=== PATIENT | male | born 1975 | race Caucasian/White ===

== ENCOUNTER 2024-05-09 13:17 | Inpatient (IN) | payer OTHER, SELFPAY ==
[2024-05-09] VITALS (16 sets, daily range): BP systolic 118–127; BP diastolic 69–82; PULSE 93–104; RESP 19–27; TEMP 36.7–36.8; O2SAT 90–98; BMI 39.7
--- NOTE | ~2024-05-09 | XR_ITS ---
EXAM: XR abdomen/kub 1V DATE: 05/12/2024 18:58 HISTORY: constipation . COMPARISON: None available. FINDINGS: Clear lung bases. Mild gastric distention. Dilated loop of large bowel over the central ab domen. Paucity of small bowel gas. No bowel gas over the rectum. Large volume of fecal material over the right colon, which is shifted towards the right and partially excluded from the [id number]. No organomegaly. No abnormal abdominal calcification. Degenerative changes in the spine and hips. IMPRESSION: Mild gastric distention. Paucity of small bowel gas limits evaluation for small bowel abn ormality. Incompletely visualized right colon, with a large volume of fecal material. Dilated large b owel loop over the central abdomen, probably representing air-filled sigmoid, with no rectal gas or f ecal material. Colonic obstruction/ileus not excluded. Reviewed, dictated and finalized at [facility]. IMPRESSION: Mild gastric distention. Paucity of small bowel gas limits evaluati on for small bowel abnormality. Incompletely visualized right colon, with a lar ge volume of fecal material. Dilated large bowel loop over the central abdomen, probably representing air-filled sigmoid, with no rectal gas or fecal material . Colonic obstruction/ileus not excluded.
--- NOTE | ~2024-05-09 | US_ITS ---
EXAMINATION: US venous doppler [facility] DATE: 05/10/2024 09:11 INDICATION: Lower limb edema. TECHNIQUE: Grayscale ultrasound images without and with compression and Doppler ultrasound images of the bilateral lower extremity veins were obtained. COMPARISON: None. FINDINGS: The visualized portions of right common femoral vein, profunda (deep) femoral vein, femoral vein, pop liteal vein, peroneal veins, posterior tibial veins, and greater saphenous vein outflow are patent. The visualized portions of left common femoral vein, profunda femoral vein, femoral vein, popliteal v ein, peroneal veins, posterior tibial veins, and greater saphenous vein outflow are patent. IMPRESSION: 1. No deep venous thrombosis. Reviewed, dictated and finalized at location B.
--- NOTE | ~2024-05-09 | XR_ITS ---
EXAMINATION: XR chest 1V portable DATE: 05/09/2024 13:57 INDICATION: Difficulty breathing. TECHNIQUE: A single frontal view of the chest was obtained. COMPARISON: Chest 2 views 06/21/2007, chest CT 06/21/2007 FINDINGS: There is no pneumonia, pleural effusion, or pneumothorax. The heart size is normal. IMPRESSION: 1. No acute cardiopulmonary disease. Reviewed, dictated and finalized at location B.
--- NOTE | 2024-05-09 13:28 | ECG_ITS ---
Test Date: 2024-05-09 13:26:32 Measurements Intervals Irene Rate: 100 P: 56 SD: 199 QRS: 67 QRSD: 114 T: 46 QT: 356 QTc: 461 Interpretive Statements SINUS TACHYCARDIA MODERATE INTRAVENTRICULAR CONDUCTION DELAY [110+ ms QRS DURATION] NONSPECIFIC T-WAVE ABNORMALITY No previous ECG available for comparison Electronically Signed On 05-09-2024 13:53:39 CDT by Geovany Guerrero M.D.
--- NOTE | 2024-05-09 13:33 | ED.SOB ---
HPI - SOB/Dyspnea General Chief Complaint: Shortness of Breath/Dyspnea Stated Complaint: SOB Time Seen by Provider: 05/09/24 13:19 History of Present Illness HPI Narrative: 48-year-old male with a past medical history including asthma and COPD, diabetes, schizophrenia. He wear CPAP at night and still smokes. Patient comes into the emergency department via EMS for concerns of hypoxia and difficulty breathing for last 2 days. On arrival to the house patient was 79% on room air, received DuoNeb with improvement to the mid 90s. Patient presently is saturating 90% on 6 L nasal cannula, endorses some chest tightness and difficulty breathing. States it feels like his COPD. Denies any chest pain, abdominal pain, back pain, fever, chills. No sick contacts the household. No records of the patient here in the EMR. Patient is awake alert and answering all questions appropriately. Related Data Home Medications ?Medication ?Instructions ?Recorded ?Confirmed ?Last Taken ?Type albuterol sulfate 90 mcg/actuation 1 puff inhalation Q4H PRN 05/09/24 05/09/24 05/07/24 History aerosol inhaler shortness of breath or wheezing amlodipine 5 mg tablet 5 mg PO DAILY 05/09/24 05/09/24 05/08/24 History aripiprazole 10 mg tablet 5 mg PO DAILY 05/09/24 05/09/24 05/08/24 History aspirin 81 mg capsule 81 mg PO DAILY 05/09/24 05/09/24 05/08/24 History benztropine 1 mg tablet 1 mg PO HS 05/09/24 05/09/24 05/08/24 History desipramine 150 mg tablet 150 mg PO HS 05/09/24 05/09/24 05/08/24 History diclofenac sodium 1 % topical gel See Rx Instructions topical 05/09/24 05/09/24 05/08/24 History .COMPLEX fluticasone 250 mcg-salmeterol 50 1 inh inhalation Q12H 05/09/24 05/09/24 05/08/24 History mcg/dose blistr powdr for inhalation folic acid 1 mg tablet 1 mg PO DAILY 05/09/24 05/09/24 05/08/24 History gabapentin 300 mg capsule 300 mg PO Q12H 05/09/24 05/09/24 05/08/24 History lithium carbonate 300 mg capsule 300 mg PO BID 05/09/24 05/09/24 05/08/24 History losartan 50 mg-hydrochlorothiazide 1 tablet PO DAILY 05/09/24 05/09/24 05/08/24 History 12.5 mg tablet metformin 1,000 mg tablet 1,000 mg PO BID 05/09/24 05/09/24 05/08/24 History omega 6-hte-vvb-fish oil 1,000 mg 1 cap PO HS 05/09/24 05/09/24 05/08/24 History (120 mg-180 mg) capsule (Fish Oil) oxybutynin chloride 15 mg 15 mg PO DAILY 05/09/24 05/09/24 05/08/24 History tablet,extended release 24 hr sennosides 8.6 mg-docusate sodium 2 tab-cap PO HS 05/09/24 05/09/24 05/04/24 History 50 mg tablet (Senna-Time S) simvastatin 40 mg tablet 40 mg PO QPM 05/09/24 05/09/24 05/08/24 History sitagliptin phosphate 50 mg tablet 50 mg PO DAILY 05/09/24 05/09/24 05/08/24 History (Januvia) venlafaxine 150 mg 300 mg PO DAILY 05/09/24 05/09/24 05/08/24 History capsule,extended release 24 hr Allergies Allergy/AdvReac Type Severity Reaction Status Date / Time No Known Allergies Allergy Verified 05/09/24 18:39 Review of Systems Review of Systems: As reviewed above in [facility] Social History Social History Smoking packs per day: 2 Smoking cigarettes per day: 40.0 Smoking status: Current every day smoker Tobacco type: cigarettes Additional smoking assessment comments: per patient. Smokes one to two packs per day. Alcohol intake: never Substance use: never Spiritual care concerns: No Exam Narrative: GENERAL: Uncomfortable appearing, not any acute distress, able to answer questions and awake alert oriented. Saturating 90% on 6 L nasal cannula HEAD: [Normocephalic, atraumatic.] EYES: [PERRLA and EOMI.] ENT: Nares clear, no rhinorrhea or epistaxis. Mucous membranes moist. NECK: Supple. CHEST: Diffuse wheezing in all lung chirinos, prolonged expiratory phase, no tachypnea or significant labored breathing. He is able to answer questions appropriately and as mild conversational dyspnea HEART: [Regular rate and rhythm]. No murmur heard. [Normal peripheral pulses.] ABDOMEN: Protuberant abdomen with an umbilical hernia that is easily reducible. Soft and nondistended, [nontender], [No rigidity or guarding] EXTREMITIES: Normal range of motion. [No edema.] SKIN: Warm, dry, no rash. NEURO: [No focal deficits]. Alert and oriented [x3.] PSYCH: [Normal mood and affect.] Course Vital Signs Vital signs: Vital Signs Temperature 36.7 C 05/09/24 13:22 Pulse Rate 101 H 05/09/24 13:22 Respiratory Rate 19 05/09/24 13:22 Blood Pressure 126/78 05/09/24 13:22 Pulse Oximetry 90 05/09/24 13:22 Oxygen Delivery Nasal Cannula 05/09/24 13:22 Oxygen Flow Rate 6 05/09/24 13:22 Temperature 36.8 C 05/09/24 19:49 Pulse Rate 101 H 05/09/24 20:15 Respiratory Rate 22 H 05/09/24 20:15 Blood Pressure 125/69 05/09/24 19:49 Pulse Oximetry 91 05/09/24 20:13 Oxygen Delivery High Flow Nasal Cannula 05/09/24 20:13 Oxygen Flow Rate 6 05/09/24 20:13 MDM - SOB/Dyspnea MDM Narrative Medical decision making narrative: 48-year-old male with history of asthma, COPD, smoking, diabetes and schizophrenia. Presents to the ER for evaluation of respiratory concerns including hypoxia and difficulty breathing for last several days. Patient states it feels like his COPD/asthma. Does endorse still smoking. He was found to be hypoxic at 79% on room air. Does not wear oxygen at the household uses CPAP at night occasionally. Provided DuoNeb in route with improvement to 96% via nasal cannula according to EMS. Currently he is saturating 90% on 6 L nasal can without any tachypnea, mild tachycardia, no blood pressure elevations or fever. He has diffuse wheezing in all lung chirinos. Considerations at this time referred asthma exacerbation, COPD exacerbation, bronchospastic process secondary to viral illness, potential pneumonia. Given his COPD history he was started on antibiotics including Rocephin and azithromycin and treated with continuous nebulization of albuterol and Atrovent, magnesium and steroids were ordered as well a fluid bolus. Cardiac workup was ordered this time including CBC, CMP, chest x-ray, EKG and troponin. Given patient's hypoxia and respiratory efforts he will require continuous re-evaluation admission to the hospital after treatments. Currently he is saturating appropriately on nasal cannula given his COPD history and we will hold off on invasive or noninvasive positive-pressure in till further diagnostics. VBG obtained and shows mildly elevated CO2 of 53 but normal pH and bicarb secondary to chronic retention. Workup reveals no leukocytosis, hemoglobin 12.6 with no baseline. Normal platelet count. Normal electrolytes, creatinine 1.59 with no baseline. Normal LFTs. Normal BUN. Negative troponin. Urine without any infection. Negative viral swabs. Chest x-ray shows no acute cardiopulmonary disease. EKG shows sinus tachycardia, no signs of ST segment elevations, depressions or inversions. Patient re-evaluated and doing much better after DuoNeb treatments, no longer has wheezy. Will require admission to the hospital for continued evaluation treatment as he is still requiring oxygen therapy and would benefit from scheduled DuoNebs and steroids. Patient is comfortable with this plan I spoke to the hospitalist currently being covered by the midlevel provider who accepted him to a telemetry monitored bed. Medical Records Attestation: I reviewed the patient's medical records. Lab Data Attestation: I reviewed the patient's lab results. 05/09/24 13:43 05/09/24 13:43 Labs: Lab Results 05/09/24 05/09/24 Range/Units 13:43 14:46 WBC 7.3 (4.5-10.0) K/mm3 RBC 4.16 L (4.6-6.20) M/mm3 Hgb 12.6 L (14.0-18.0) g/dL Hct 37.6 L (42.0-52.0) % MCV 90.4 (80-100) fl MCH 30.3 (26-34) pg MCHC 33.5 (32-36) g/dl RDW 13.0 (11.5-14.5) % Plt Count 173 (150-375) k/mm3 MPV 10.5 H (7.4-10.4) fl Immature Gran % (Auto) 0.3 (0-0.5) % Neut % (Auto) 74.4 H (45.5-73.1) % Lymph % (Auto) 12.4 L (18.3-44.2) % [place] % (Auto) 9.5 H (2.6-8.5) % Eos % (Auto) 3.1 (0-4.4) % Baso % (Auto) 0.3 (0.2-1.2) % Lymph # (Auto) 0.91 (0.9-3.2) K/mm3 [place] # (Auto) 0.7 H (0.1-0.6) K/mm3 Eos # (Auto) 0.2 (0-0.3) K/mm3 Baso # (Auto) 0.0 (0.0-0.1) K/mm3 Abs Immat Gran (auto) 0.02 (0.00-0.031) K/mm3 Absolute Neuts (auto) 5.5 (1.3-6.7) K/mm3 Absolute Nucleated RBC 0.000 (0.0-0.012) K/mm3 Nucleated RBC % 0.0 (0.0-0.2) % Sodium 140 (137-145) mmol/L Potassium 4.4 (3.4-5.0) mmol/L Chloride 103 (98-107) mmol/L Carbon Dioxide 29 (22-30) mmol/L Anion Gap 8 (4-12) mmol/L BUN 13 (9-20) mg/dL Creatinine 1.59 H (0.7-1.3) mg/dL Estim Creat Clear Calc Not Reportable Estimated GFR 46 L (59 - ) Glucose 104 (65-110) mg/dL Calcium 10.1 (8.4-10.2) mg/dL Total Bilirubin 0.6 (0.2-1.3) mg/dL AST 21 (17-59) U/L ALT 25 (6-50) U/L Alkaline Phosphatase 85 (38-126) U/L Troponin I < 0.012 (0.000-0.034) ng/mL Total Protein 8.0 (6.3-8.2) g/dL Albumin 4.3 (3.5-5.1) g/dL Urine Color Yellow (Yellow) Urine Appearance Clear (Clear) Urine pH 6.0 (5.0-9.0) Ur Specific [place] 1.007 (1.001-1.035) Urine Protein Negative (Negative) mg/dL Urine Glucose (UA) Negative (Negative) mg/dL Urine Ketones Negative (Negative) mg/dL Ur Blood (Man) Negative (Negative) Urine Nitrate Negative (Negative) Urine Bilirubin Negative (Negative) Urine Urobilinogen 0.2 (<2.0) mg/dL Leukocyte Esterase Rfl Negative (Negative) CORBY/UL Influenza A (RT-PCR) Negative (Negative) Influenza B (RT-PCR) Negative (Negative) RSV (RT-PCR) Negative (Negative) SARS-CoV-2 RNA (RT-PCR) Negative (Negative) ABG Data ABG results: 05/09/24 13:30 VBG pH 7.343 VBG pCO2 53.0 H VBG pO2 37.9 VBG HCO3 28.1 O2 Delivery Device Nasal cannula O2 Liters/Min 6.0 FiO2 44 Attestation: I personally reviewed and interpreted this ABG as follows: Interpretation: Chronic hypercapnic retention with normal pH indicative of adequate compensation from the kidneys. No acidosis. Imaging Data Attestation: I personally reviewed and interpreted this imaging study as follows: My impression: Impressions Chest X-Ray 05/09/24 14:01 IMPRESSION: 1. No acute cardiopulmonary disease. ECG Data EKG #1: Attestation: I personally reviewed and interpreted this ECG as follows: ECG completion date: 05/09/24 ECG completion time: 13:26 Prior ECG tracings: not available for review Interpretation: No ST segment elevations, depressions or inversions. Sinus tachycardia, no previous EKG for comparison. QTC 461, QRS 114, rate of 100. MT interval 199. Overall sinus tachycardia. Critical Care Time Critical Care Time Critical Care Time: Yes Total Critical Care Time: 35 Discharge Plan Discharge Clinical Impression: Acute exacerbation of COPD with asthma, Acute hypoxic on chronic hypercapnic respiratory failure Patient Disposition: Still a Patient Condition: Stable
[2024-05-09 13:34] LABS: Device NASAL CANNULA; Fractional Inspired Oxygen 44 %; HCO3 VBG 28.1 mEq/l (24.0-30.0); PO2 VBG 37.9 mmHg (35.0-45.0); pH VBG 7.343 (7.300-7.400)
[2024-05-09] MEDS: IPRATROPIUM BR 0.02% INH SOLN 0.5 MG/2.5 ML VIAL 1 MG INHALATION (13:41)
[2024-05-09] MEDS: ALBUTEROL SULFATE NEB 2.5 MG/3 ML INH 10 MG INHALATION (13:41)
[2024-05-09] MEDS: methylPREDNISolone SOD SUCC 40 MG VIAL IV PUSH (13:43)
--- NOTE | 2024-05-09 13:51 | PC.NURSE ---
Pt. arrived with thick layer of dirt on the bottom of his feet and in between his toes. With the pt. permission, feet cleaned with soap and water by this RN. Feet dried, non-slip socks applied and a warm blanket given. Pt. verbalized appreciation.
[2024-05-09 13:56] LABS: Basophils Percent Auto 0.3 % (0.2-1.2); Eosinophils Absolute Auto 0.2 K/mm3 (0-0.3); Eosinophils Percent Auto 3.1 % (0-4.4); Hematocrit 37.6 % (42.0-52.0); Hemoglobin 12.6 g/dL (14.0-18.0); Immature Granulocyte Absolute 0.02 K/mm3 (0.00-0.031); Immature Granulocyte Percent A 0.3 % (0-0.5); Lymphocytes Absolute Auto 0.91 K/mm3 (0.9-3.2); Lymphocytes Percent Auto 12.4 % (18.3-44.2); Mean Corpuscular HGB Conc 33.5 g/dl (32-36); Mean Corpuscular Hemoglobin 30.3 pg (26-34); Mean Corpuscular Volume 90.4 fl (80-100); Mean Platelet Volume 10.5 fl (7.4-10.4); Monocytes Absolute Auto 0.7 K/mm3 (0.1-0.6); Monocytes Percent Auto 9.5 % (2.6-8.5); Neutrophils Absolute Auto 5.5 K/mm3 (1.3-6.7); Neutrophils Percent Auto 74.4 % (45.5-73.1); Platelet Count Result 173 k/mm3 (150-375); Red Blood Count 4.16 M/mm3 (4.6-6.20); White Blood Count 7.3 K/mm3 (4.5-10.0)
[2024-05-09] MEDS: MAGNESIUM SULF 2 GM/WATER 50ML 2 GM/50 ML BAG IVPB (14:03)
--- NOTE | 2024-05-09 14:09 | PC.NURSE ---
pr EDP Dr. Mueller, pt is receiving abx for COPD and blood cultures were not needed prior to administration
[2024-05-09 14:10] LABS: Alanine Aminotransferase 25 U/L (6-50); Albumin Level 4.3 g/dL (3.5-5.1); Alkaline Phosphatase 85 U/L (38-126); Anion Gap 8 mmol/L (4-12); Aspartate Amino Transferase 21 U/L (17-59); Bilirubin,Total 0.6 mg/dL (0.2-1.3); Blood Urea Nitrogen 13 mg/dL (9-20); Calcium 10.1 mg/dL (8.4-10.2); Carbon Dioxide 29 mmol/L (22-30); Chloride 103 mmol/L (98-107); Estimated Glomerular Filt Rate 46; Glucose 104 mg/dL (65-110); Potassium 4.4 mmol/L (3.4-5.0); Sodium 140 mmol/L (137-145)
--- OUTSIDE RECORDS SUMMARY | 2024-05-09 14:22 | XMS_ITS | CONTINUITY OF CARE DOCUMENT ---
Author Name pazruby олег Address Unknown Organization [facility] Address [address] [place] [address] Phone [phone] Care Team Providers Care Auto Roller Name Role Phone Rell SWEENEY, Alejandro Ramirez Unavailable ANDRE SIMMONS MD Unavailable [phone] ANDRE SIMMONS MD Unavailable [phone] PROBLEMS Condition Status Date Provider Notes CAD-11/10 NUC EF 42 active ? Alejandro Zacarias MD CHEST PAIN-08/10 ECHO EF 50 active Alejandro Zacarias MD TOBACCO ABUSE active ? Alejandro Zacarias MD BIPOLAR AFFECTIVE DISORDER active ? Alejandro Zacarias MD HYPERCHOLESTEROLEMIA-10/09 ECHO EF 55 active ? Danyel Karimi RN OBESITY active ? Alejandro Zacarias MD EDEMA-12/09 DONALDO DOP NEG active ? Danyel Ramirez ENCOUNTERS Date Type Provider Location Encounter Diag nosis - In-person encounter Office Visit Alejandro Zacarias MD [place] [facility] - In-person encounter Office Visit Alejandro Zacarias MD [place] [facility] CAD-11/10 NUC EF 42 - In-person encounter Office Visit Alejandro Zacarias MD [facility] CHEST PAIN-08/10 ECHO EF 50 - In-person encounter Office Visit Alejandro Zacarias MD [facility] - In-person encounter Office Visit Alejandro Zacarias MD [place] [facility] EDEMA-12/09 DONALDO DOP NEGOBESITYHYPERCHOLESTE ROLEMIA-10/09 ECHO EF 55BIPOLAR AFFECTIVE DISORDERTOBACCO ABUSE VITAL SIGNS Date Observation Value Provider Body Mass Index (Ratio) 43.58 kg/m2 Shyannea ivan [facility] blood pressure, diastolic 85 mm[Hg] An mary ann Martinez blood pressure, systolic 141 mm[Hg] Ane atris [facility] pulse rate 100 /min Aneatris [facility] oxygen saturation, oximetry 96 % Aneatris [facility] respiratory rate E&M 18 /min Aneatri s [facility] weight E&M 290 [lb_av] Shyanneguzman [facility] blood pressure, diastolic 70 mm[Hg] Doc ramirez Karimi RN blood pressure, systolic 110 mm[Hg] Danyel Eaglejoe IBANEZ pulse rate 105 /min Danyel Eaglejoe IBANEZ oxygen saturation, oximetry 96 % Danyel Eaglejoe IBANEZ respiratory rate E&M 15 /min Danyel Lisa joe RN Body Mass Index (Ratio) 43.59 kg/m2 Danyel Eagles RN weight E&M 289 [lb_av] Danyel Eagles RN Body Mass Index (Ratio) 42.23 kg/m2 Olegario Alarcon blood pressure, diastolic 76 mm[Hg] Buck blood pressure, systolic 117 mm[Hg] Jon Alarcon pulse rate 103 /min Yanni Alarcon oxygen saturation, oximetry 97 % Yanni Alarcon respiratory rate E&M 16 /min Yanni Alarcon weight E&M 280 [lb_av] Yanni Alarcon Body Mass Index (Ratio) 43.21 kg/m2 Olegario Alarcon blood pressure, diastolic 72 mm[Hg] Buck blood pressure, systolic 112 mm[Hg] Jon Alarcon pulse rate 100 /min Yanni Alarcon oxygen saturation, oximetry 96 % Yanni Alarcon respiratory rate E&M 16 /min Yanni Alarcon weight E&M 286.50 [lb_av] Yanni Kumari an blood pressure, diastolic, left arm 70 mm [Hg] Danyel Karimi MARCELLE blood pressure, systolic, left arm 120 mm [Hg] Danyel Karimi MARCELLE blood pressure, diastolic, right arm 85 m m[Hg] Danyel Karimi MARCELLE blood pressure, systolic, right arm 124 m m[Hg] Danyel Eaglejoe IBANEZ blood pressure, diastolic 85 mm[Hg] Ja harpreet Eaglejoe IBANEZ blood pressure, systolic 124 mm[Hg] Danyel Eaglejoe IBANEZ pulse rate 88 /min Danyel Eaglejoe IBANEZ oxygen saturation, oximetry 94 % Danyel Eaglejoe IBANEZ respiratory rate E&M 20 /min Danyel Gonzalez charly IBANEZ Body Mass Index (Ratio) 44.70 kg/m2 Danyel Eaglejoe IBANEZ weight E&M 296.4 [lb_av] Danyel Eaglejoe IBANEZ height E&M 68.4 [in_i] Danyel Karimi RN ALLERGIES No Known Drug Allergies HISTORY OF MEDICATION USE Medication Status Instructions Dates Provider Indications Com ments DESIPRAMINE HCL TABS active daily Danyel Trev IBANEZ VENLAFAXINE HCL ER 150 MG ORAL CAPSULE EXTENDED RELEASE 24 HOUR active 1 capsules by mouth in the morning 1 Alejandro Zacarias MD NORTRIPTYLINE HCL 50 MG ORAL CAPSULE active 3 capsules by mouth in the morning 1 Alejandro Zacarias MD COMBIVENT 18-103 MCG/ACT INHALATION AEROSOL active inhale 2 puffs 4 times a day as needed Alejandro Zacarias MD HIBICLENS 4 % EXTERNAL LIQUID completed use daily, head to toe for 10 days - 5 Danyel Karimi RN BENADRYL 25 MG ORAL TABLET completed 1-2 tablets by mouth every 8 hours - 5 Danyel Karimi RN POTASSIUM CHLORIDE ER 10 MEQ ORAL TABLET EXTENDED RELEASE active 1 tablet by mouth daily Alejandro Zacarias MD FUROSEMIDE 40 MG ORAL TABLET active 1 tablet by mouth daily Alejandro Zacarias MD VITAMIN E-400 CAPSULE completed 2 capsules by mouth in the morning - 6 Yanni Alarcon INVEGA 6 MG ORAL TABLET EXTENDED RELEASE 24 HOUR completed 1 tablet by mouth every morning - 6 Yanni Alarcon LITHIUM CARBONATE 300 MG ORAL CAPSULE active 4 capsules by mouth every morning Alejandro Zacarias MD INVEGA SUSTENNA 234 MG/1.5ML INTRAMUSCULAR SUSPENSION active inject 234mg IM every month Alejandro Zacarias MD SIMVASTATIN 20 MG ORAL TABLET active 1 tablet by mouth in the morning Alejandro Zacarias MD SOCIAL HISTORY Date Observation Value Provider social history reviewed E&M revi ewed - no changes required Alejandro Zacarias MD social history reviewed E&M reviewed Danyel Karimi RN smoking history, tot al pack/year 27 Daneyl Karimi RN smoking/tobacco cess ation, patient education and counseling yes Alejandro Zacarias MD social history reviewed E&M reviewed Danyel Karimi RN smoking history, tot al pack/year 27 Yanni Alarcon social history reviewed E&M reviewed Danyel Karimi RN drug use no Yanni Alarcon passive cigarette sm ira exposure no Yanni Alarcon smoking/tobacco cess ation, patient education and counseling yes Danyel Karimi RN smoking history, tot al pack/year 27 Yanni Alarcon smoking history, tot al pack/year 27 Yanni Alarcon smoking history, tot al pack/year 27 Danyel Karimi RN smoking history, tot al pack/year 26 Danyel Karimi RN smoking, date started 1985 Jerry eubanks RN smoking/tobacco cess ation, patient education and counseling yes Danyel Karimi RN cigarette use yes Danyel aKrimi RN smoking history, tot al pack/day 2 Danyel Karimi RN smoking status current every day smoker J tiffany Karimi RN social history E&M L evie in an assisted living facility E thnicity: Danyel Karimi RN social history reviewed E&M reviewed Danyel Karimi RN physical exercise, frequency, days per week no [employer] caffeine use, averag e drinks per day yes [employer] alcohol use, average drinks per day none [employer] number of years as a smoker 10 years or m ore [employer] smoking status Smoker [employer] MENTAL STATUS Date Observation Value Provider assessment of judgme nt and insight E&M depressed affect. Alejandro Zacarias MD INSURANCE PROVIDERS Payer name Policy type / Coverage type [employer] [employer] party ID [employer] [place] [employer] [id number] [employer] [place] (MEDICA[place]) Medicaid [id number] TREATMENT PLAN Date Name Performer follow up:on multipl e meds O rders: L IPID PANEL (7600) A ST SGOT (CPT-76903) A LT (SGPT) (392748) B ASIC METABOLIC PANEL W/EGFR (92729) G job+Hb A1c (312223) Alejandro Zacarias MD follow up: O rders: L IPID PANEL (7600) A ST SGOT (CPT-46294) A LT (SGPT) (948408) B ASIC METABOLIC PANEL W/EGFR (10851) G job+Hb A1c (156102) Alejandro Zacarias MD follow up:has not us ed patel machine for past several weeks Alejandro Zacarias MD : H is updated medication list for this problem includes: Simvastatin 20 Mg Tabs (Simvastatin) ..... 1 tablet by mouth in the morning BP today: 110/70 Prior BP: 117/76 (11/03/2012) Alejandro Zacarias MD : B P today: 110/70 Prior BP: 117/76 (11/03/2012) N uclear Stress Findings: 1. Normal myocardial perfusion imaging after vasodilator stress with Regadenoson. 2 . Abnormal left ventricular systolic function with a calculated ejection fraction of (QGS) 42%. 3 . No obvious significant scintigraphic evidence of myocardial ischemia or scar. - GC (11/09/2012) Orders: E KG (CPT-31967) Alejandro Zacarias MD : H is updated medication list for this problem includes: Simvastatin 20 Mg Tabs (Simvastatin) ..... 1 tablet by mouth in the morning BP today: 110/70 Prior BP: 117/76 (11/03/2012) Nuclear Stress Findings: 1. Normal myocardial perfusion imaging after vasodilator stress with Regadenoson. 2 . Abnormal left ventricular systolic function with a calculated ejection fraction of (QGS) 42%. 3 . No obvious significant scintigraphic evidence of myocardial ischemia or scar. - GC (11/09/2012) Alejandro Zacarias MD follow up: O rders: E KG (CPT-28692) Alejandro Zacarias MD follow up: H is updated medication list for this problem includes: Simvastatin 20 Mg Tabs (Simvastatin) ..... 1 tablet by mouth in the morning Alejandro Zacarias MD follow up:ADVISED SM OKING REDUCTION AND EVENTUAL CESSATION Alejandro Zacarias MD Date Name Glu+Hb A1c BASIC METABOLIC PANE L W/EGFR ALT (SGPT) LIPID PANEL STR - Adenosine Complete Echo HISTORY OF PROCEDURES Procedure Date Procedure Name Provider Procedure Notes S tatus AST SGOT Alejandro Zacarias MD compl eted EKG Alejandro Zacarias MD compl eted EKG Alejandro Zacarias MD compl eted EKG Alejandro Zacarias MD compl eted EKG Alejandro Zacarias MD compl eted
--- NOTE | 2024-05-09 14:29 | PC.NURSE ---
With pt. permission, sister Maria G updated by this RN over the phone. All questions answered.
[2024-05-09] MEDS: AZITHROMYCIN 500 MG/NS 250 ML 500 MG/250 ML BAG 250 MG IVPB (14:32)
[2024-05-09 14:35] LABS: Influenza A QL RT-PCR Negative (Negative); Influenza B QL RT-PCR Negative (Negative); RSV RNA, RT-PCR Negative (Negative); SARS-CoV-2 RNA PCR Negative (Negative)
--- NOTE | 2024-05-09 14:43 | PC.NURSE ---
Lab called to add on Troponin. Pt. states it alcaraz when he urinates. Verbal order given by doctor Mueller for a UA.
[2024-05-09 14:52] LABS: Add Urine Microscopic? NO; Appearance Urine Clear (Clear); Bilirubin Urine Negative (Negative); Blood Urine Negative (Negative); Color Urine Yellow (Yellow); Glucose Urine UA Negative (Negative); Ketones Urine Negative (Negative); Leukocyte Esterase Ur Negative LEU/UL (Negative); Nitrate Urine Negative (Negative); Protein Urine Negative (Negative); Specific Grav Ur 1.007 (1.001-1.035); Urobilinogen Urine 0.2 mg/dL (<2.0)
[2024-05-09 15:05] LABS: Troponin I < 0.012 ng/mL (0.000-0.034)
--- OUTSIDE RECORDS SUMMARY | 2024-05-09 15:22 | XMS_ITS | Clinical Summary ---
Author Organization [facility] Snaps Address [address] [place] [address] Care Team Providers Care Hypnotherapist Name Role Phone Jean Carlos Angulo MD Primary Care Provider [phone] Source Comments [facility],non-owned Affiliates and Associated Physician Practices is amultiple site organization consisting of ambulatory clinics and hospital sitesin [place], [place], [place] and [place]. This disclosure is being madepursuant to the Care Everywhere program and may not contain all information available regarding this patient. Last updated 17.[facility] Allergies No known active allergies Medications * Be aware that medications may not be up to date on this document. Alwaysverify current medications with the patient. Medication Sig Dispensed Refills Start Date End Date Status albuterol HFA (Proventil; Ventolin; Proair) 108 (90 Base) MCG/ACT inhaler once daily 07/20/2022 Active amLODIPine (Norvasc) 2.5 MG tablet once daily 06/28/2022 Active ARIPiprazole (Abilify) 10 MG tablet at bedtime 06/28/2022 Active cephalexin (Keflex) 500 MG capsule once daily Active cyproheptadine (Periactin) 4 MG tablet cyproheptadine 4 mg tablet Active desipramine (Norpramin) 100 MG tablet desipramine 100 mg tablet Active diclofenac sodium (Voltaren) 1 % gel as needed 05/25/2022 Active fenofibrate (Tricor) 145 MG tablet once daily 07/05/2022 Active Advair Diskus 250-50 MCG/ACT inhaler once daily 06/10/2022 Active furosemide (Lasix) 40 MG tablet once daily Active HYDROcodone-acetam inophen ([place]) 10-325 MG tablet at bedtime Active lithium carbonate (Eskalith) 300 MG capsule lithium carbonate 300 mg capsule Active hydrocortisone valerate (Westcort) 0.2 % cream hydrocortisone valerate 0.2 % topical cream Active [place]-3 Fatty Acids (fish oil) 1000 MG capsule once daily Active oxyBUTYnin (Ditropan) 5 MG tablet oxybutynin chloride 5 mg tablet Active paliperidone CR 24hr (Invega) 6 MG tablet Invega 6 mg tablet,extended release Active paliperidone palmitate ER (Invega Sustenna) 234 MG/1.5ML injection Invega Sustenna 234 mg/1.5 mL intramuscular syringe Active simvastatin (Zocor) 20 MG tablet simvastatin 20 mg tablet Active Januvia 50 MG tablet 06/23/2022 Active venlafaxine XR 24hr (Effexor XR) 150 MG capsule venlafaxine ER 150 mg capsule,extended release 24 hr Active Multiple Vitamin (MULTIVITAMIN ADULT PO) Take by mouth once daily Active nicotine (QC Nicotine Transdermal System) 21 MG/24HR patchIndications:N icotine Dependence Apply 1 patch to daily X 6 weeks, then apply 14 mg patch daily X 2 weeks (#14 patches), then 7 mg patch daily X 2 weeks (#14 patches) Reasons: Nicotine Addiction 42 patch 07/21/2022 Active Family History Medical History Relation Name Comments Other - Hepatic/Liver Neg Hx Social History Tobacco Use Types Packs/Day Years Used Date Smoking Tobacco: Every Day Cigarettes Smokeless Tobacco: Never Alcohol Use Standard Drinks/Week Comments Not Currently 0 (1 standard drink = 0.6 oz pure alcohol) none since 2013 - 6 pack a day Sex and Gender Information Value Date Recorded Sex Assigned at Not on file Gender Identity Not on file Sexual Orientation Not on file Last Filed Vital Signs Vital Sign Reading Time Taken Comments Blood Pressure - - Pulse - - Temperature - - Respiratory Rate - - Oxygen Saturation - - Inhaled Oxygen Concentration - - Weight 132.5 kg (292 lb) 07/21/2022 10:54 AM CDT Height 180.3 cm (5' 11 ) 07/21/2022 10:54 AM CDT Body Mass Index 40.73 07/21/2022 10:54 AM CDT Plan of Treatment Health Maintenance Due Date Last Done Comments COLOGUARD (AGES 45-75) - COL ON CA SCREENING 1973 COLON MONITORING 1973 COLONOSCOPY - COLON CA SCREENING 1973 CT COLONOGRAPHY - COLON CA SCREENING 1973 Colorectal Cancer Screening 1973 FIT - COLON CA SCREENING 1973 FLEX SIG - COLON CA SCREENING 1973 HIV SCREENING 1988 DTAP/TDAP/TD VACCINES (1 - Tdap) 1992 HEPATITIS B VACCINE (1 of 3 - 19+ 3-dose series) 1992 PNEUMOCOCCAL VACCINE 50+ (1 of 2 - PCV) 1992 PNEUMOCOCCAL VACCINE (1 of 2 - PCV) 1992 ZOSTER VACCINE (1 of 2) 05/30/2023 COVID-19 VACCINE (1 - 2023-2 5 season) 2023 INFLUENZA VACCINE (#1) 2023 DEPRESSION SCREENING 02/29/2024 MEDICARE AWV CALENDAR YEAR 2024 SCREENING FOR DIABETES 07/21/2025 07/21/2022 HEPATITIS C SCREENING Completed 07/21/2022 HIB VACCINE Aged Out No longer eligi ble based on patient's age to complete this topic HPV VACCINE Aged Out No longer eligi ble based on patient's age to complete this topic MENINGOCOCCAL (Group B) VACC INE SHARED DECISION-MAKING Aged Out No longer eligibl e based on patient's age to complete this topic MENINGOCOCCAL GROUPS A/C/Y/W VACCINE Aged Out No longer eligible b ased on patient's age to complete this topic Procedures Procedure Name Priority Date/Time Associated Diagnosis Comments COMPREHENSIVE METABOLIC PANEL Routine 07/21/2022 12:36 PM CDT Other ascites HEPATITIS C ANTIBODY Routine 07/21/2022 12:36 PM CDT Other ascites Encounter for screening for other viral diseases from Last 3 Months or Most Recently Relevant to Health Maintenance Results * (ABNORMAL) COMPREHENSIVE METABOLIC PANEL (07/21/2022 12:36 PM CDT) BUN 8 7 - 26 mg/dL 07/21/2022 1:38 PM CDT [facility] Creatinine 1.43(H) 0.71 - 1.16 mg/dL 07/21/2022 1:38 PM CDT [facility] Sodium 143 136 - 145 mmol/L 07/21/2022 1:38 PM CDT [facility] Potassium 3.9 3.5 - 4.5 mmol/L 07/21/2022 1:38 PM [facility] Chloride 106 98 - 107 mmol/L 07/21/2022 1:38 PM [facility] CO2 30(H) 22 - 29 mmol/L 07/21/2022 1:38 PM [facility] Glucose 94 70 - 115 mg/dL 07/21/2022 1:38 PM [facility] Calcium 9.9 8.4 - 10.2 mg/dL 07/21/2022 1:38 PM [facility] Protein Total 7.4 6.0 - 8.3 g/dL 07/21/2022 1:38 PM [facility] Albumin 3.7 3.4 - 5.0 g/dL 07/21/2022 1:38 PM [facility] Bilirubin Total 0.3 0.2 - 1.2 mg/dL 07/21/2022 1:38 PM [facility] Alkaline Phosphatase 51 40 - 150 U/L 07/21/2022 1:38 PM [facility] ALT 20 5 - 55 U/L 07/21/2022 1:38 PM [facility] AST 16 5 - 34 U/L 07/21/2022 1:38 PM [facility] Anion Gap 11 8 - 18 07/21/2022 1:38 PM [facility] BUN/Creatinine Ratio 6(L) 7 - 23 07/21/2022 1:38 PM [facility] Osmolality Calculated 294 270 - 300 mOsm/kg 07/21/2022 1:38 PM [facility] Albumin/Globulin Ratio 1.0(L) 1.1 - 2.3 07/21/2022 1:38 PM [facility] eGFR by CKD-EPI 60(L) >=90 mL/min/1.7 3 m2 07/21/2022 1:38 PM [facility] Blood BLOOD SPECIMEN / Unknown Lab Venipuncture / Unknown 07/21/2022 12:36 PM CDT 07/21/2022 1:03 PM T Kavon Bronson MD LAB - CHEMISTRY [address] [place] [address], [place] [phone] * HEPATITIS C ANTIBODY (07/21/2022 12:36 PM CDT) Hepatitis C Antibody Non-react idania Non-reac tive 07/21/2022 2:56 PM CDT [facility] Comment:Hepatitis C Antibody screen indicates no serologic evidence of past or current infection with Hepatitis C Virus. Patients with unexplained liver disease who are immunocompromised or suspected of having acute Hepatitis C infection may benefit from Nucleic Acid Test (EDEL) for Hepatitis C Viral RNA to confirm Hepatitis C status. Blood BLOOD SPECIMEN / Unknown Lab Venipuncture / Unknown 07/21/2022 12:36 PM CDT 07/21/2022 1:00 PM CDT Kavon Bronson MD LAB - CHEMISTRY [address] [place] [address], [facility] [phone] from Last 3 Months or Most Recently Relevant to Health Maintenance Care Teams Hypnotherapist Relationship Specialty Start Date End Date Jean Carlos Angulo MD [address] [address] PCP - General Internal Medicine 07/21/22
--- OUTSIDE RECORDS SUMMARY | 2024-05-09 15:22 | XMS_ITS | Clinical Summary ---
Author Organization [facility] Facility Address [address] [place] [address] Care Team Providers Care Property Valuer Name Role Phone Ingrid Garces Primary Care Provider [phone] Medications furosemide (LASIX) 40 MG tablet FUROSEMIDE 40 MG ORAL TABLET 0 Active potassium chloride 10 MEQ CR tablet POTASSIUM CHLORIDE ER 10 MEQ ORAL TABLET EXTENDED RELEASE 0 Active simvastatin (ZOCOR) 20 MG tablet SIMVASTATIN 20 MG ORAL TABLET 0 Active venlafaxine XR (EFFEXOR-XR) 150 MG 24 hr capsule VENLAFAXINE HCL ER 150 MG ORAL CAPSULE EXTENDED RELEASE 24 HOUR 3 Active Active Problems Problem Noted Date Diagnosed Date Atherosclerotic heart diseas e of [place] coronary artery without angina pectoris 01/27/2023 01/27/2023 Bipolar disorder 01/27/2023 01/27/2023 Pure hypercholesterolemia 01/27/20232022 Edema 01/27/2023 01/27/2023 Tobacco dependence syndrome 01/27/202312/31 Social History Tobacco Use Types Packs/Day Years Used Date Smoking Tobacco: Never Assessed Sex and Gender Information Value Date Recorded Sex Assigned at Not on file Legal Sex Male 1:11 PM EDT Gender Identity Not on file Sexual Orientation Not on file Plan of Treatment Health Maintenance Due Date Last Done Comments Pneumococcal Vaccine: Pediat rics (0 to 5 Years) and At-Risk Patients (6 to 64 Years) (1 of 2 - PCV) 05/30/1979 Hepatitis B Vaccine (1 of 3 - 19+ 3-dose series) 05/29 Colorectal Cancer Screening: Annual FOBT 2022 Colorectal Cancer Screening: Colonoscopy 2022 Colorectal Cancer Screening: Sigmoidoscopy 2022 Influenza Vaccine (#1) 2023 Insurance [facility] ([id number]) Care Teams Property Valuer Relationship Specialty Start Date End Date Ingrid Garces [address] [place] [address] PCP - General Family Medicine 11/30/22
--- OUTSIDE RECORDS SUMMARY | 2024-05-09 15:22 | XMS_ITS | CONTINUITY OF CARE DOCUMENT ---
Author Name pazruby олег Address Unknown Organization [facility] Address [address] [place] [address] Phone [phone] Care Team Providers Care Entry Level Automotive Technician Name Role Phone Rell SWEENEY, Alejandro Ramirez Unavailable ANDRE SIMMONS MD Unavailable [phone] ANDRE SIMMONS MD Unavailable [phone] PROBLEMS Condition Status Date Provider Notes EDEMA-12/09 DONALDO DOP NEG active ? Danyel Ramirez OBESITY active ? Alejandro Zacarias MD HYPERCHOLESTEROLEMIA-10/09 ECHO EF 55 active ? Danyel Karimi RN BIPOLAR AFFECTIVE DISORDER active ? Alejandro Zacarias MD TOBACCO ABUSE active ? Alejandro Zacarias MD CHEST PAIN-08/10 ECHO EF 50 active Alejandro Zacarias MD CAD-11/10 NUC EF 42 active ? Alejandro Zacarias MD ENCOUNTERS Date Type Provider Location Encounter Diag nosis - In-person encounter Office Visit Alejandro Zacarias MD [facility] - In-person encounter Office Visit Alejandro Zacarias MD [facility] CAD-11/10 NUC EF 42 - In-person encounter Office Visit Alejandro Zacarias MD [facility] CHEST PAIN-08/10 ECHO EF 50 - In-person encounter Office Visit Alejandro Zacarias MD [facility] - In-person encounter Office Visit Alejandro Zacarias MD [facility] EDEMA-12/09 DONALDO DOP NEGOBESITYHYPERCHOLESTE ROLEMIA-10/09 ECHO EF 55BIPOLAR AFFECTIVE DISORDERTOBACCO ABUSE VITAL SIGNS Date Observation Value Provider Body Mass Index (Ratio) 43.58 kg/m2 Shyannea ivan [facility] blood pressure, diastolic 85 mm[Hg] An mary ann Martinez blood pressure, systolic 141 mm[Hg] Ane atris [facility] pulse rate 100 /min Aneatris [facility] oxygen saturation, oximetry 96 % Aneatris [facility] respiratory rate E&M 18 /min Aneatri s [facility] weight E&M 290 [lb_av] Shyanneguzman [facility] blood pressure, diastolic 70 mm[Hg] Doc ramirez [...] RN smoking history, tot al pack/year 27 Danyel Karimi RN smoking/tobacco cess ation, patient education [...] Danyel Karimi RN cigarette use yes Danyel Karimi RN smoking history, tot al pack/day 2 [...] Payer name Policy type / Coverage type Ada red libertarian [place] [employer] [place] Medicare [id number] [employer] [place] (MEDICA[place]) Medicaid [id number] TREATMENT PLAN Date Name Performer follow up:on multipl e meds O rders: L IPID PANEL (7600) A ST SGOT (CPT-63168) A LT (SGPT) (818210) B ASIC METABOLIC PANEL W/EGFR (21765) G job+Hb A1c (560869) Alejandro Zacarias MD follow up: O rders: L IPID PANEL (7600) A ST SGOT (CPT-91786) A LT (SGPT) (575394) B ASIC METABOLIC PANEL W/EGFR (06394) G job+Hb A1c (935011) Alejandro Zacarias MD follow up:has not us [...] scar. - GC (11/09/2012) Orders: E KG (CPT-79696) Alejandro Zacarias MD : H is updated [...] MD follow up: O rders: E KG (CPT-75891) Alejandro Zacarias MD follow up: H is [...]
--- OUTSIDE RECORDS SUMMARY | 2024-05-09 15:22 | XMS_ITS | Patient Health Summary ---
Author Organization [facility] Address [address] [place] [address] Care Team Providers Care Circular Knitter Helper Name Role Phone Jean Carlos Angulo MD Primary Care Provider [phone] Note from [facility],non-owned Affiliates and Associated Physician Practices is amultiple site organization consisting of ambulatory clinics and hospital sitesin [place], [place] and [place]. This disclosure is being madepursuant to the Care Everywhere program and may not contain all information available regarding this patient. Last updated 17.[facility] Allergies No known active allergies Medications * Be aware that medications may not be up to date on this document. Alwaysverify current medications with the patient. * albuterol HFA (Proventil; Ventolin; Proair) 108 (90 Base) MCG/ACT inhaler (Started 07/20/2022) once daily * amLODIPine (Norvasc) 2.5 MG tablet(Started 06/28/2022) once daily * ARIPiprazole (Abilify) 10 MG tablet(Started 06/28/2022) at bedtime * cephalexin (Keflex) 500 MG capsule once daily * cyproheptadine (Periactin) 4 MG tablet cyproheptadine 4 mg tablet * desipramine (Norpramin) 100 MG tablet desipramine 100 mg tablet * diclofenac sodium (Voltaren) 1 % gel(Started 05/25/2022) as needed * fenofibrate (Tricor) 145 MG tablet(Started 07/05/2022) once daily * Advair Diskus 250-50 MCG/ACT inhaler(Started 06/10/2022) once daily * furosemide (Lasix) 40 MG tablet once daily * HYDROcodone-acetaminophen (Somers) 10-325 MG tablet at bedtime * lithium carbonate (Eskalith) 300 MG capsule lithium carbonate 300 mg capsule * hydrocortisone valerate (Westcort) 0.2 % cream hydrocortisone valerate 0.2 % topical cream * [place]-3 Fatty Acids (fish oil) 1000 MG capsule once daily * oxyBUTYnin (Ditropan) 5 MG tablet oxybutynin chloride 5 mg tablet * paliperidone CR 24hr (Invega) 6 MG tablet Invega 6 mg tablet,extended release * paliperidone palmitate ER (Invega Sustenna) 234 MG/1.5ML injection Invega Sustenna 234 mg/1.5 mL intramuscular syringe * simvastatin (Zocor) 20 MG tablet simvastatin 20 mg tablet * Januvia 50 MG tablet(Started 06/23/2022) * venlafaxine XR 24hr (Effexor XR) 150 MG capsule venlafaxine ER 150 mg capsule,extended release 24 hr * Multiple Vitamin (MULTIVITAMIN ADULT PO) Take by mouth once daily * nicotine ([employer] Nicotine Transdermal System) 21 MG/24HR patch(Started 07/21/2022) Apply 1 patch to daily X 6 weeks, then apply 14 mg patch daily X 2 weeks (#14 patches), then 7 mg patch daily X 2 weeks (#14 patches) Reasons: Nicotine Addiction Social History Tobacco Use Types Packs/Day Years [...] Mass Index 40.73 07/21/2022 10:54 AM CDT Procedures * DE HEP-2 IGG BY IFA(Performed 07/21/2022) Performed for Other ascites * SMOOTH MUSCLE ANTIBODY W REFLEX TITER(Performed 07/21/2022) Performed for Other ascites * HEPATITIS B CORE ANTIBODY TOTAL(Performed 07/21/2022) Performed for Other ascites, Encounter for screening for other viral diseases * HEPATITIS C ANTIBODY(Performed 07/21/2022) Performed for Other ascites, Encounter for screening for other viral diseases * HEPATITIS B SURFACE ANTIBODY(Performed 07/21/2022) Performed for Other ascites, Encounter for screening for other viral diseases * HEPATITIS B SURFACE ANTIGEN W RFLX CONFIRMATION(Performed 07/21/2022) Performed for Other ascites, Encounter for screening for other viral diseases * HEPATITIS A ANTIBODY(Performed 07/21/2022) Performed for Other ascites, Encounter for screening for other viral diseases * IGG BLOOD(Performed 07/21/2022) Performed for Other ascites * GGT(Performed 07/21/2022) Performed for Other ascites * CERULOPLASMIN(Performed 07/21/2022) Performed for Other ascites * [id number]-[id number] BLOOD(Performed 07/21/2022) Performed for Other ascites * DE BLOOD SCREEN W/REFLEX TITER(Performed 07/21/2022) Performed for Other ascites * FERRITIN(Performed 07/21/2022) Performed for Other ascites * IRON + TRANSFERRIN PANEL(Performed 07/21/2022) Performed for Other ascites * ALPHA FETOPROTEIN BLOOD TUMOR MARKER(Performed 07/21/2022) Performed for Other ascites * BILIRUBIN DIRECT(Performed 07/21/2022) Performed for Other ascites * PT-INR [facility](Performed 07/21/2022) Performed for Other ascites * COMPREHENSIVE METABOLIC PANEL(Performed 07/21/2022) Performed for Other ascites * CBC W AUTO DIFFERENTIAL(Performed 07/21/2022) Performed for Other ascites Results * PT-INR [facility] (07/21/2022 12:36 PM CDT) PT 12.8 12.1 - 14.8 Seconds 07/21/2022 1:30 PM CDT [facility] INR 1.0 See Comment 07/21/2022 1:30 PM CDT [facility] Comment:The suggested therap eutic range for standard coumadin (warfarin) therapy is an INR of 2.0-3.0. For high-risk patients (Mechanical Mitral Valve Prosthesis, etc.), the suggested prophylactic therapeutic range is an INR of 2.5-3.5. Blood BLOOD SPECIMEN / Unknown Lab Venipuncture / Unknown 07/21/2022 12:36 PM CDT 07/21/2022 1:03 PM CDT Kavon Bronson MD LAB - COAGULATION OR DERABLES [place] [id number] [place] [address], [facility] [phone] * DE HEP-2 IGG BY IFA (07/21/2022 12:36 PM CDT) DE HEp-2 IgG <1:80 <1:80 07/24/2022 6:10 PM CDT [employer] ([facility]) DE Interpretive Comment See Note 07/24/2022 6:10 PM CDT [employer] ([facility]) Comment: Antinuclear antibodies by IFA negative for homogeneous, speckled, nucleolar, centromere, and nuclear dots patterns. Cytoplasmic antibodies by IFA negative for reticular/AMA, discrete/GW body-like, polar/golgi-like, rods and rings, and cytoplasmic speckled patterns. INTERPRETIVE INFORMATION: DE Interpretive Comment Presence of antinuclear antibodies (DE) is a hallmark feature of systemic autoimmune rheumatic diseases (SARD). However, DE lacks diagnostic specificity and is associated with a variety of diseases (cancers, autoimmune, infectious, and inflammatory conditions) and may also occur in healthy individuals in varying prevalence. The lack of diagnostic specificity requires confirmation of positive DE by more specific serologic tests. DE (nuclear reactivity) positive patterns reported include centromere, homogeneous, nuclear dots, nucleolar, or speckled. DE (cytoplasmic reactivity) positive patterns reported include reticular/AMA, discrete/GW body-like, polar/golgi-like, cytoplasmic speckled or rods and rings. All positive patterns are reported to endpoint titers (1:2560). Reported patterns may help guide differential diagnosis, although they may not be specific for individual antibodies or diseases. Mitotic staining patterns not reported. Negative results do not necessarily rule out SARD. Performed By: [facility] [address] [place] [id number] Concrete Hopper Operator: Moris Smith MD, PhD Blood BLOOD SPECIMEN / Unknown Lab Venipuncture / Unknown 07/21/2022 12:36 PM CDT 07/21/2022 1:00 PM CDT Kavon Bronson MD LAB - SEROLOGY ORDER PAUL Performing Organization Address City/[facility]/ZIP Co de Phone Number [facility] Event Farm [facility]) [address] * SMOOTH MUSCLE ANTIBODY W REFLEX TITER (07/21/2022 12:36 PM CDT) F-Actin Antibody IgG 9 0 - 19 Units 07/22/2022 11:22 PM CDT [facility] [employer] ([facility]) Comment: If F-Actin (Smooth Muscle) Antibody, IgG is negative, the Smooth Muscle Antibody titer by IFA is not performed. REFERENCE INTERVAL: F-Actin (Smooth Muscle) Antibody, IgG by JOSE MARTIN 19 Units or less ....... Negative 20 - 30 Units .......... Weak Positive-Suggest repeat testing in two to three weeks with fresh specimen. 31 Units or greater..... Positive-Suggestive of autoimmune hepatitis type 1 or chronic active hepatitis. F-actin IgG antibodies have been shown to have increased sensitivity for autoimmune hepatitis (AIH) but lower specificity than smooth muscle antibodies (SMA). F-actin IgG antibodies can also be seen in SMA-negative disease controls (non-AIH), especially in patients with primary biliary cirrhosis and chronic hepatitis C infections. Some patients with AIH may be SMA-positive but negative for F-actin IgG. Consider testing for SMA by IFA if suspicion for AIH is strong. Performed By: [facility] [address] [place] [address] Concrete Hopper Operator: Moris Smith MD, PhD Blood BLOOD SPECIMEN / Unknown Lab Venipuncture / Unknown 07/21/2022 12:36 PM CDT 07/21/2022 1:00 PM CDT Kavon Bronosn MD LAB - SEROLOGY ORDER PAUL [facility]) [address] * (ABNORMAL) DE BLOOD SCREEN W/REFLEX TITER (07/21/2022 12:36 PM CDT) DE IgG Detected (A) None Detected 07/22/2022 10:50 PM CDT [facility] [employer] ([facility]) Comment: Antibodies to Anti-Nuclear Antibodies (DE) detected. Additional testing to follow. INTERPRETIVE INFORMATION: Anti-Nuclear Antibodies (DE), IgG by JOSE MARTIN Antinuclear Antibodies (DE), IgG by JOSE MARTIN: DE specimens are screened using enzyme-linked immunosorbent assay (JOSE MARTIN) methodology. All JOSE MARTIN results reported as Detected are further tested by indirect fluorescent assay (IFA) using HEp-2 substrate with an IgG-specific conjugate. The DE JOSE MARTIN screen is designed to detect antibodies against dsDNA, histones, SS-A (Ro), SS-B (La), Wu, Wu/ORACLE BUSINESS ANALYST, Scl-70, Michelle-1, centromeric proteins, other antigens extracted from the HEp-2 cell nucleus. DE JOSE MARTIN assays have been reported to have lower sensitivities than DE IFA for systemic autoimmune rheumatic diseases (SARD). Negative results do not necessarily rule out SARD. Performed By: [facility] [address] [place] [address] Concrete Hopper Operator: Moris Smith MD, PhD Blood BLOOD SPECIMEN / Unknown Lab Venipuncture / Unknown 07/21/2022 12:36 PM CDT 07/21/2022 1:00 PM CDT Kavon Bronson MD LAB - CHEMISTRY [place] [address] * CERULOPLASMIN (07/21/2022 12:36 PM CDT) Ceruloplasmin 24 20 - 60 mg/dL 07/21/2022 2:38 PM CDT [facility] Blood BLOOD SPECIMEN / Unknown Lab Venipuncture / Unknown 07/21/2022 12:36 PM CDT 07/21/2022 1:00 PM CDT Kavon Bronson MD LAB - CHEMISTRY [place] [address] [address], [facility] [phone] * ALPHA FETOPROTEIN BLOOD TUMOR MARKER (07/21/2022 12:36 PM CDT) [facility] Alpha-Fetoprote in Tumor Marker 2.4 <=8.3 ng/mL 07/21/2022 2:57 PM CDT [facility] Comment: AFP values will vary depending on testing procedure used. Results are not comparable across different methods. AFP values obtained by [facility] using an Terry Alinity Immunoassay. Blood BLOOD SPECIMEN / Unknown Lab Venipuncture / Unknown 07/21/2022 12:36 PM CDT 07/21/2022 1:04 PM CDT Kavon Bronson MD LAB - CHEMISTRY [facility] Performing Organization Address City/[facility]/ZIP Co de Phone Number [address] [address], [facility] [phone] * [id number] BLOOD (07/21/2022 12:36 PM CDT) [facility] Qkhxj-2-Hlrfso ypsin 178 90 - 200 mg/dL 07/21/2022 2:38 PM CDT [facility] Blood BLOOD SPECIMEN / Unknown Lab Venipuncture / Unknown 07/21/2022 12:36 PM CDT 07/21/2022 1:00 PM CDT Kavon Bronson MD LAB - CHEMISTRY [facility] Performing Organization Address City/[facility]/ZIP Co de Phone Number [address] [address], [facility] [phone] * (ABNORMAL) CBC WITH DIFFERENTIAL (07/21/2022 12:36 PM CDT) [facility] WBC 10.0 3.5 - 10.5 10 3/uL 07/21/2022 1:13 PM CDT [facility] RBC 4.74 4.30 - 5.70 10 6/uL 07/21/2022 1:13 PM CDT [facility] Hemoglobin 14.0 12.0 - 17.6 g/dL 07/21/2022 1:13 PM CDT [facility] Hematocrit 42.3 35.2 - 51.7 % 07/21/2022 1:13 PM [facility] MCV 89.2 80.7 - 98.3 fL 07/21/2022 1:13 [facility] MCH 29.5 26.7 - 34.0 pg 07/21/2022 1:13 [facility] MCHC 33.1 30.8 - 35.9 g/dL 07/21/2022 1:13 PM [facility] RDW-SD 46.0 36.0 - 50.0 fL 07/21/2022 1:13 [facility] RDW-CV 14.1 11.2 - 14.8 % 07/21/2022 1:13 [facility] Platelet Count 185 150 - 400 10 3/uL 07/21/2022 1:13 [facility] MPV 11.5 9.4 - 12.9 fL 07/21/2022 1:13 [facility] nRBC Absolute 0.00 0 10 3/uL 07/21/2022 1:13 [facility] nRBC Auto 0.0 0 /100 WBC 07/21/2022 1:13 [facility] Neutrophils % 71.7(H) 35.0 - 70.0 % 07/21/2022 1:13 [facility] Lymphocytes % 18.3(L) 20.0 - 43.0 % 07/21/2022 1:13 [facility] Monocytes % 6.9 5.0 - 13.0 % 07/21/2022 1:13 [facility] Eosinophils % 2.4 0.0 - 6.0 % 07/21/2022 1:13 [facility] Basophil % 0.2 0.0 - 2.0 % 07/21/2022 1:13 [facility] Neutrophils Absolute 7.19(H) 1.60 - 7.00 10 3/uL 07/21/2022 1:13 [facility] Lymphocyte Absolute 1.83 1.10 - 3.90 10 3/uL 07/21/2022 1:13 [facility] Monocytes Absolute 0.69 0.26 - 1.07 10 3/uL 07/21/2022 1:13 PM T [facility] Eosinophils Absolute 0.24 0.00 - 0.47 10 3/uL 07/21/2022 1:13 PM [facility] Basophils Absolute 0.02 0.00 - 0.08 10 3/uL 07/21/2022 1:13 PM [facility] Immature Granulocytes % 0.5 0.0 - 1.0 % 07/21/2022 1:13 PM [facility] Immature Granulocytes Absolute 0.05 07/21/2022 1:13 PM [facility] Blood BLOOD SPECIMEN / Unknown Lab Venipuncture / Unknown 07/21/2022 12:36 PM CDT 07/21/2022 1:04 PM CDT Kavon Bronson MD LAB - HEMATOLOGY ORD ERABLES [facility] [address] [place] [address], [facility] [phone] * (ABNORMAL) COMPREHENSIVE METABOLIC PANEL (07/21/2022 12:36 PM CDT) BUN 8 7 - 26 mg/dL 07/21/2022 1:38 PM [facility] Creatinine 1.43(H) 0.71 - 1.16 mg/dL 07/21/2022 1:38 PM [facility] Sodium 143 136 - 145 mmol/L 07/21/2022 1:38 PM [facility] Potassium 3.9 3.5 - 4.5 mmol/L 07/21/2022 1:38 PM [facility] Chloride 106 98 - 107 mmol/L 07/21/2022 1:38 PM [facility] CO2 30(H) 22 - 29 mmol/L 07/21/2022 1:38 PM [facility] Glucose 94 70 - 115 mg/dL 07/21/2022 1:38 PM [facility] Calcium 9.9 8.4 - 10.2 mg/dL 07/21/2022 1:38 PM CDT [facility] Protein Total 7.4 6.0 - 8.3 g/dL 07/21/2022 1:38 PM [facility] Albumin 3.7 3.4 - 5.0 g/dL 07/21/2022 1:38 PM [facility] Bilirubin Total 0.3 0.2 - 1.2 mg/dL 07/21/2022 1:38 PM [facility] Alkaline Phosphatase 51 40 - 150 U/L 07/21/2022 1:38 PM [facility] ALT 20 5 - 55 U/L 07/21/2022 1:38 PM [facility] AST 16 5 - 34 U/L 07/21/2022 1:38 PM [facility] Anion Gap 11 8 - 18 07/21/2022 1:38 PM [facility] BUN/Creatinine Ratio 6(L) 7 - 23 07/21/2022 1:38 PM [facility] Osmolality Calculated 294 270 - 300 mOsm/kg 07/21/2022 1:38 PM [facility] Albumin/Globulin Ratio 1.0(L) 1.1 - 2.3 07/21/2022 1:38 PM [facility] eGFR by CKD-EPI 60(L) >=90 mL/min/1.7 3 m2 07/21/2022 1:38 PM [facility] Blood BLOOD SPECIMEN / Unknown Lab Venipuncture / Unknown 07/21/2022 12:36 PM CDT 07/21/2022 1:03 PM CDT Kavon Bronson MD LAB - CHEMISTRY [facility] Organization Address City/State/ZIP Co de Phone Number [facility] [address] [place] [address], [facility] [phone] * HEPATITIS B SURFACE ANTIBODY (07/21/2022 12:36 PM CDT) Hepatitis B Virus Surface Antibody Non-react idania Non-react idania 07/21/2022 2:56 PM [facility] Comment: < 8 mIU/mL Hepatitis B surface Antibody (HBsAb). Nonreactive for HBsAb - individual is considered not immune to Hepatitis B Virus infection. Hepatitis B Surface Antibody Quantitative 0.0 <8.0 mIU/mL 07/21/2022 2:56 PM CDT [facility] Comment: Hepatitis B Surface Antibody Numeric Result Interpretation: Nonreactive: <8.0 mIU/mL Indeterminate: 8.0 - 12.0 mIU/mL Reactive: >12.0 mIU/mL Blood BLOOD SPECIMEN / Unknown Lab Venipuncture / Unknown 07/21/2022 12:36 PM CDT 07/21/2022 1:00 PM CDT Kavon Bronson MD LAB - CHEMISTRY [facility] Performing Organization Address [facility]/ZIP Co de Phone Number [address] [address], [facility] [phone] * HEPATITIS B CORE ANTIBODY TOTAL (07/21/2022 12:36 PM CDT) HBc Antibody Total Non-reacti ve Non-reacti ve 07/21/2022 2:56 PM CDT [facility] Blood BLOOD SPECIMEN / Unknown Lab Venipuncture / Unknown 07/21/2022 12:36 PM CDT 07/21/2022 1:00 PM CDT Kavon Bronson MD LAB - CHEMISTRY [facility] Performing Organization Address [facility]/ZIP Co de Phone Number [address] [address], [facility] [phone] * HEPATITIS B SURFACE ANTIGEN W RFLX CONFIRMATION (07/21/2022 12:36 PM CDT) Hepatitis B Virus Surface Antigen Non-reacti ve Non-reacti ve 07/21/2022 2:56 PM CDT [facility] Blood BLOOD SPECIMEN / Unknown Lab Venipuncture / Unknown 07/21/2022 12:36 PM CDT 07/21/2022 1:00 PM CDT Kavon Bronson MD LAB - CHEMISTRY [place] [address] [address], [place] [phone] * (ABNORMAL) GGT (07/21/2022 12:36 PM CDT) GGT 73(H) 9 - 64 Units/L 07/21/2022 1:38 PM CDT [facility] Blood BLOOD SPECIMEN / Unknown Lab Venipuncture / Unknown 07/21/2022 12:36 PM CDT 07/21/2022 1:03 PM CDT Kavon Bronson MD LAB - CHEMISTRY [place] [address] [address], [place] [phone] * BILIRUBIN DIRECT (07/21/2022 12:36 PM CDT) Bilirubin Conjugated 0.1 0.1 - 0.5 mg/dL 07/21/2022 1:38 PM CDT [facility] Blood BLOOD SPECIMEN / Unknown Lab Venipuncture / Unknown 07/21/2022 12:36 PM CDT 07/21/2022 1:03 PM CDT Kavon Bronson MD LAB - CHEMISTRY [facility] [facility] [address] [address], [place] [phone] * (ABNORMAL) IRON + TRANSFERRIN PANEL (07/21/2022 12:36 PM CDT) Iron 42(L) 50 - 175 ug/dL 07/21/2022 1:22 PM CDT [facility] Transferrin 258 174 - 382 mg/dL 07/21/2022 1:22 PM CDT [facility] Transferrin Saturation % 13(L) 16 - 50 % 07/21/2022 1:22 PM CDT [facility] TIBC Calculated 323 240 - 450 ug/dL 07/21/2022 1:22 PM CDT [facility] Blood BLOOD SPECIMEN / Unknown Lab Venipuncture / Unknown 07/21/2022 12:36 PM CDT 07/21/2022 1:00 PM CDT Kavon Bronson MD LAB - CHEMISTRY [facility] [address] [address], [facility] [phone] * (ABNORMAL) IGG BLOOD (07/21/2022 12:36 PM CDT) Pathologist [facility] IgG 1,630(H) 767 - 1,590 mg/dL 07/21/2022 1:22 PM CDT [facility] Blood BLOOD SPECIMEN / Unknown Lab Venipuncture / Unknown 07/21/2022 12:36 PM CDT 07/21/2022 1:00 PM CDT Kvaon Bronson MD LAB - CHEMISTRY [facility] Performing Organization Address [facility] Co de Phone Number [address] [address], [place] [phone] * HEPATITIS C ANTIBODY (07/21/2022 12:36 PM CDT) [facility] Hepatitis C Antibody Non-react idania Non-reac tive 07/21/2022 2:56 PM CDT [facility] Comment:Hepatitis C Antibody screen indicates no [...] Bronson MD LAB - CHEMISTRY [facility] Performing Organization Address City/[facility]/ZIP Co de Phone Number [address] [address], [facility] [phone] * HEPATITIS A ANTIBODY (07/21/2022 12:36 PM CDT) Pathologist [facility] Hepatitis A Virus Antibody Total Negative Negative 07/22/2022 3:49 PM CDT [facility] ([facility]) Comment: Performed by [facility], [address] [place] [address] [email or web address], Moris Smith MD, PHD, Lab. Director Blood BLOOD SPECIMEN / Unknown Lab Venipuncture / Unknown 07/21/2022 12:36 PM CDT 07/21/2022 1:00 PM CDT Kavon Bronson MD LAB - CHEMISTRY [facility]) [address] [place], [place] [id number] [place] [address] * FERRITIN (07/21/2022 12:36 PM CDT) Pathologist [facility] Ferritin 96 22 - 275 ng/mL 07/21/2022 2:56 PM CDT [facility] Blood BLOOD SPECIMEN / Unknown Lab Venipuncture / Unknown 07/21/2022 12:36 PM CDT 07/21/2022 1:00 PM CDT Kavon Bronson MD LAB - CHEMISTRY [facility] ROBBINS [facility] [address] [place] [address], [facility] [phone] Care Teams Circular Knitter Helper Relationship Specialty Start Date End Date Jean Carlos Angulo MD [address] [facility] [place] [address] PCP - General Internal Medicine 07/21/22
--- OUTSIDE RECORDS SUMMARY | 2024-05-09 15:22 | XMS_ITS | Referral Summary ---
Author Organization [facility] Address [address] [place] [address] Care Team Providers Care Access Coordinator Name Role Phone Jean Carlos Angulo MD Primary Care Provider [phone] Source Comments [facility] [employer],non-owned Affiliates and Associated Physician Practices is amultiple site organization consisting of ambulatory clinics and hospital sitesin [place], [place], [place] and [place]. This disclosure is being madepursuant to the Care Everywhere program and may not contain all information available regarding this patient. Last updated 17.[facility] [employer] Allergies No known active allergies Medications * [...] MG tablet once daily Active HYDROcodone-acetam inophen (Wasta) 10-325 MG tablet at bedtime Active lithium carbonate (Eskalith) 300 MG capsule lithium carbonate 300 mg capsule Active hydrocortisone valerate (Westcort) 0.2 % cream hydrocortisone valerate 0.2 % topical cream Active [place] [facility]-3 Fatty Acids (fish oil) 1000 MG capsule [...] Reasons: Nicotine Addiction 42 patch 07/21/2022 Active Social History Tobacco Use Types Packs/Day Years Used Date Smoking Tobacco: Every Day Cigarettes Smokeless Tobacco: Never Alcohol Use Standard Drinks/Week Comments Not Currently 0 (1 standard drink = 0.6 oz pure alcohol) none since 2012 - 6 pack a day Sex and [...] 07/21/2022 10:54 AM CDT Plan of Treatment Not on file Procedures Procedure Name Priority Date/Time Associated Diagnosis Comments COMPREHENSIVE METABOLIC PANEL Routine 07/21/2022 12:36 PM CDT Other ascites HEPATITIS C ANTIBODY Routine 07/21/2022 12:36 PM CDT Other ascites Encounter for screening for other viral diseases from Last 3 Months or Most Recently Relevant to Health Maintenance Results * (ABNORMAL) COMPREHENSIVE METABOLIC PANEL (07/21/2022 12:[address] [facility]) BUN 8 7 - 26 mg/dL 07/21/2022 1:38 PM [facility] Creatinine 1.43(H) 0.71 - 1.16 mg/dL 07/21/2022 1:38 PM [facility] Sodium 143 136 - 145 mmol/L 07/21/2022 1:38 PM [facility] Potassium 3.9 3.5 - 4.5 mmol/L 07/21/2022 1:38 PM [facility] Chloride 106 98 - 107 mmol/L 07/21/2022 1:38 PM [facility] CO2 30(H) 22 - 29 mmol/L 07/21/2022 1:38 PM [facility] Glucose 94 70 - 115 mg/dL 07/21/2022 1:38 PM [facility] Calcium 9.9 8.4 - 10.2 mg/dL 07/21/2022 1:38 PM [facility] Protein Total 7.4 6.0 - 8.3 g/dL 07/21/2022 1:38 PM [facility] Albumin 3.7 3.4 - 5.0 g/dL 07/21/2022 1:38 PM [facility] Bilirubin Total 0.3 0.2 - 1.2 mg/dL 07/21/2022 1:38 PM [facility] Alkaline Phosphatase 51 40 - 150 U/L 07/21/2022 1:38 PM [facility] ALT 20 5 - 55 U/L 07/21/2022 1:38 PM [facility] AST 16 5 - 34 U/L 07/21/2022 1:38 PM [facility] Anion Gap 11 8 - 18 07/21/2022 1:38 PM [facility] BUN/Creatinine Ratio 6(L) 7 - 23 07/21/2022 1:38 PM [facility] Osmolality Calculated 294 270 - 300 mOsm/kg 07/21/2022 1:38 PM [facility] Albumin/Globulin Ratio 1.0(L) 1.1 - 2.3 07/21/2022 1:38 PM CDT [facility] eGFR by CKD-EPI 60(L) >=90 mL/min/1.7 3 m2 07/21/2022 1:38 PM CDT [facility] Blood BLOOD SPECIMEN / Unknown Lab Venipuncture / Unknown 07/21/2022 12:36 PM CDT 07/21/2022 1:03 PM CDT Kavon Bronson MD LAB - CHEMISTRY [facility] ROBBIS[facility] [address] [address], [place] [phone] * HEPATITIS C ANTIBODY (07/21/2022 12:36 PM CDT) Hepatitis C Antibody Non-react idania Non-reac tive 07/21/2022 2:56 PM CDT [facility] Comment:Hepatitis C Antibody screen indicates no [...] Bronson MD LAB - CHEMISTRY [facility]AN[facility] ROBB[facility] [address] [address], [place] [phone] from Last 3 Months or Most Recently Relevant to Health Maintenance Care Teams Access Coordinator Relationship Specialty Start Date End Date Jean Carlos Angulo MD [address] [place] [address] [place] [address] PCP - General Internal Medicine 07/21/22
--- NOTE | 2024-05-09 18:00 | PM.IMHP ---
H&P: HPI History of Present Illness Date/Time: 05/09/24 18:00 Chief Complaint: Shortness of breath. Narrative: This is a 48-year-old male smoker with chronic obstructive pulmonary disease, hypertension, hyperlipidemia, sleep apnea, type 2 diabetes mellitus, depression, anxiety, posttraumatic stress disorder, and schizophrenia who presented to the emergency department via EMS for evaluation of shortness of breath. He gives a 2 day history of increasing shortness of breath and wheezing. At times he feels as though he cannot take in a deep breath and has some tightness in the chest. He has a cough which is not been productive. Symptoms are similar to those he is experienced with prior COPD exacerbations. He has been using his rescue inhaler without much benefit. He has chronic lower extremity edema which is unchanged. He admits that he is not always compliant with his CPAP but does uses sometimes. He denies fever, chills, sweats, sinus congestion, sore throat, productive cough, pleuritic pain, palpitations, nausea, vomiting, diarrhea, and calf pain. No known sick contacts. In the ED: Vital signs were stable on arrival; SpO2 was 90% on 15 L nasal cannula placed by EMS. Labs were significant for hemoglobin of 12.6, creatinine 1.59, glucose 170, troponin less than 0.012. VBG showed a pH of 7.343, pCO2 53, HC03 28.1. Respiratory panel was negative. Chest x-ray showed no acute cardiopulmonary disease. He received a nebulizer treatment and methylprednisolone with improvement in his work of breathing and he is down to 4 L nasal cannula. He is being admitted in this setting for further treatment of COPD exacerbation. Review of Systems Review of Systems: 12 systems were reviewed and are negative except for as per HPI. [facility] Past Medical History Medical History (Updated 05/09/24 @ 23:27 by Francesca Burciaga PA-C) Schizophrenia Posttraumatic stress disorder Depression with anxiety Type 2 diabetes mellitus Obstructive sleep apnea on CPAP Hyperlipidemia Hypertension Tobacco dependence Asthma Chronic obstructive pulmonary disease Surgical History Surgical History (Updated 05/09/24 @ 23:25 by Francesca Burciaga PA-C) History of appendectomy Social History Social History (Updated 05/09/24 @ 23:25 by Francesca Burciaga PA-C) Social History: Surrogate medical decision maker: Maria G Cody, sister ([phone]). Code status: Full code. Smoking packs per day: 2 Smoking cigarettes per day: 40.0 Smoking status: Current every day smoker Tobacco type: cigarettes Alcohol intake: never Substance use: never Spiritual care concerns: No Meds Home Medications and Allergies Home Medications ?Medication ?Instructions ?Recorded ?Confirmed ?Type albuterol sulfate 90 mcg/actuation 1 puff inhalation Q4H PRN 05/09/24 05/09/24 History aerosol inhaler shortness of breath or wheezing amlodipine 5 mg tablet 5 mg PO DAILY 05/09/24 05/09/24 History aripiprazole 10 mg tablet 5 mg PO DAILY 05/09/24 05/09/24 History aspirin 81 mg capsule 81 mg PO DAILY 05/09/24 05/09/24 History benztropine 1 mg tablet 1 mg PO HS 05/09/24 05/09/24 History desipramine 150 mg tablet 150 mg PO HS 05/09/24 05/09/24 History diclofenac sodium 1 % topical gel See Rx Instructions topical 05/09/24 05/09/24 History .COMPLEX fluticasone 250 mcg-salmeterol 50 1 inh inhalation Q12H 05/09/24 05/09/24 History mcg/dose blistr powdr for inhalation folic acid 1 mg tablet 1 mg PO DAILY 05/09/24 05/09/24 History gabapentin 300 mg capsule 300 mg PO Q12H 05/09/24 05/09/24 History lithium carbonate 300 mg capsule 300 mg PO BID 05/09/24 05/09/24 History losartan 50 mg-hydrochlorothiazide 1 tablet PO DAILY 05/09/24 05/09/24 History 12.5 mg tablet metformin 1,000 mg tablet 1,000 mg PO BID 05/09/24 05/09/24 History omega 2-dlz-fes-fish oil 1,000 mg 1 cap PO HS 05/09/24 05/09/24 History (120 mg-180 mg) capsule (Fish Oil) oxybutynin chloride 15 mg 15 mg PO DAILY 05/09/24 05/09/24 History tablet,extended release 24 hr sennosides 8.6 mg-docusate sodium 2 tab-cap PO HS 05/09/24 05/09/24 History 50 mg tablet (Senna-Time S) simvastatin 40 mg tablet 40 mg PO QPM 05/09/24 05/09/24 History sitagliptin phosphate 50 mg tablet 50 mg PO DAILY 05/09/24 05/09/24 History (Januvia) venlafaxine 150 mg 300 mg PO DAILY 05/09/24 05/09/24 History capsule,extended release 24 hr Allergies Allergy/AdvReac Type Severity Reaction Status Date / Time No Known Allergies Allergy Verified 05/09/24 18:39 Vital Signs Vital Signs - 24 hr 05/09/24 13:22 05/09/24 13:22 05/09/24 13:33 Temperature 98.0 F Pulse Rate 101 H Respiratory Rate 19 Blood Pressure 126/78 Pulse Oximetry 90 90 94 Oxygen Delivery Nasal Cannula Nasal Cannula Nasal Cannula Oxygen Flow Rate 6 6 6 05/09/24 13:36 05/09/24 13:42 05/09/24 14:00 Temperature Pulse Rate 100 93 99 Respiratory Rate 27 H 24 H Blood Pressure Pulse Oximetry Oxygen Delivery Oxygen Flow Rate 05/09/24 14:30 05/09/24 14:32 05/09/24 16:44 Temperature Pulse Rate 98 98 100 Respiratory Rate 23 H 25 H 26 H Blood Pressure 127/82 127/82 122/76 Pulse Oximetry 97 98 91 Oxygen Delivery Oxygen Flow Rate 05/09/24 16:46 05/09/24 16:49 Temperature Pulse Rate 101 H 100 Respiratory Rate 21 H 25 H Blood Pressure 118/72 118/72 Pulse Oximetry 90 95 Oxygen Delivery Oxygen Flow Rate Exam Narrative: General: Disheveled, chronically ill-appearing male sitting up in bed. Weight: 125.6 kg. BMI: 39.7. HEENT: PERRL, EOMI. Sclera anicteric. Moist mucous membranes. Crowded oropharynx. Neck: Supple. Exam limited due to neck circumference. Respiratory: Respirations are nonlabored he is able to speak in full sentences. Lung sounds are significantly diminished throughout with diffuse end-expiratory wheeze and prolonged expiratory phase. Cardiovascular: Regular rate and rhythm with S1-S2. Delete Gastrointestinal: Abdomen is soft, obese, nontender, and nondistended with positive bowel sounds. Skin: Warm and dry. Chronic skin changes and erythema of the lower legs with scattered excoriations. Extremities: No cyanosis or clubbing. Chronic pitting and nonpitting edema of the lower extremities. No palpable knots or cords. Negative Chuck sign bilaterally. Neurological: Alert. Cranial nerves 2-12 are grossly intact. No gross focal deficits to casual conversation. Psychiatric: Cooperative with depressed mood and flat affect. H&P: Results Labs Labs: Short CBC 05/09/24 Range/Units 13:43 WBC 7.3 (4.5-10.0) K/mm3 Hgb 12.6 L (14.0-18.0) g/dL Hct 37.6 L (42.0-52.0) % Plt Count 173 (150-375) k/mm3 BMP 05/09/24 13:43 Sodium 140 Potassium 4.4 Chloride 103 Carbon Dioxide 29 BUN 13 Creatinine 1.59 H Glucose 104 Calcium 10.1 Cardiac Enzymes 05/09/24 Range/Units 13:43 Troponin I < 0.012 (0.000-0.034) ng/mL Liver Function 05/09/24 Range/Units 13:43 Total Bilirubin 0.6 (0.2-1.3) mg/dL AST 21 (17-59) U/L ALT 25 (6-50) U/L Alkaline Phosphatase 85 (38-126) U/L Albumin 4.3 (3.5-5.1) g/dL Urine 05/09/24 Range/Units 14:46 Urine Color Yellow (Yellow) Urine Appearance Clear (Clear) Urine pH 6.0 (5.0-9.0) Ur Specific [place] 1.007 (1.001-1.035) Urine Protein Negative (Negative) mg/dL Urine Glucose (UA) Negative (Negative) mg/dL Impressions Chest X-Ray 05/09/24 14:01 IMPRESSION: 1. No acute cardiopulmonary disease. Assessment and Plan Assessment and plan (1) Acute hypoxic on chronic hypercapnic respiratory failure: Code(s): J96.01 - Acute respiratory failure with hypoxia; J96.12 - Chronic respiratory failure with hypercapnia Status: Acute (2) Acute exacerbation of COPD with asthma: Code(s): J44.1 - Chronic obstructive pulmonary disease with (acute) exacerbation Status: Acute (3) Bilateral lower extremity edema: Code(s): R60.0 - Localized edema Status: Acute (4) Renal failure: Code(s): N19 - Unspecified kidney failure Status: Acute (5) Obstructive sleep apnea on CPAP: Code(s): G47.33 - Obstructive sleep apnea (adult) (pediatric) Status: Acute (6) Type 2 diabetes mellitus: Code(s): E11.9 - Type 2 diabetes mellitus without complications Status: Acute (7) Hypertension: Code(s): I10 - Essential (primary) hypertension Status: Acute (8) Tobacco dependence: Code(s): F17.200 - Nicotine dependence, unspecified, uncomplicated Status: Acute Plan The patient presented to the emergency department for evaluation of increasing shortness of breath over last couple of days as detailed in HPI. Labs, imaging, EKG, and all reports were personally reviewed. Clinically he has a severe COPD exacerbation and he has been started on steroids, scheduled bronchodilators, and antibiotics. Hypoxia presumably due to COPD. He has significant lower extremity edema and there could be some component of heart failure though not evident on chest x-ray. Pulmonary embolism is also considered but seems less likely. Echocardiogram and lower extremity venous Doppler ultrasounds have been ordered. At the time of this dictation he is on 6 L high-flow with an SpO2 in the lower 90s. ABG shows evidence of chronic, mild hypercapnia. He will need a home oxygen study prior to discharge. Smoking cessation is imperative and was discussed; he does not seem motivated. CPAP will be provided for the patient to use while hospitalized. He has not had labs done before this facility and I suspect his elevated creatinine is likely chronic. Records have been requested from his doctor for review. Blood pressures are stable. Monitor glucose closely while on steroids. Hemoglobin A1c today was 5%. His home medications will be reviewed and resumed as appropriate. Findings and treatment plan were discussed with the patient. Questions were solicited and answered to satisfaction. The patient's medical management will be taken over by the hospitalist team in a.m. Quality VTE Prophylaxis VTE prophylaxis: pharmacologic ordered Hospitalist [facility] Advance Care Plan I have confirmed that the patient's Advanced Care Plan is present, code status is documented, or surrogate decision maker is listed in patient medical record.: Yes Medication Reconciliation I have utilized all available resources to obtain, update and review the patients current medications (includes all prescriptions, OTC, herbals, cannabis, and nutritional supplements).: Yes
--- NOTE | 2024-05-09 18:43 | ADMGEN ---
This patient, Neal Hoffman, was admitted to Medical Room 341-01. Patient/family oriented to hospital policies and general routines including ID bracelet, bed and alarms, visiting hours, pain management, procedures, bathroom and other care routines, personal items, smoking policy, room service/diet, and visiting hours. Information on how to activate the Rapid Response Team has been discussed. Patient/Family are encouraged to report perceived risks to care and to ask questions if they do not understand what they are told or what they should do.
[2024-05-09] MEDS: methylPREDNISolone SOD SUCC 125 MG VIAL 40 MG IV PUSH ×2 (18:50→23:05)
[2024-05-09] MEDS: IPRATROPIUM 0.5 MG/ALBUTEROL SULFATE 2.5 MG AMPUL.NEB 3 ML INHALATION (19:57)
[2024-05-09 21:09] LABS: Glucose Point of Care 170 mg/dl (65-105)
[2024-05-09] MEDS: DESIPRAMINE HCL 25 MG TABLET 150 MG PO (23:02)
[2024-05-09] MEDS: OMEGA 3 POLYUNSAT FATTY ACIDS 1 GM CAP PO (23:02)
[2024-05-09] MEDS: BENZTROPINE MESYLATE 1 MG TABLET PO (23:02)
[2024-05-09] MEDS: GABAPENTIN 300 MG CAPSULE PO (23:03)
[2024-05-09] MEDS: LITHIUM CARBONATE 300 MG CAPSULE PO (23:03)
[2024-05-09] MEDS: SIMVASTATIN 20 MG TABLET 40 MG PO (23:03)
[2024-05-09] MEDS: NICOTINE (*PBKC) 21 MG PATCH 1 PATCH TRANSDERM (23:03)
[2024-05-09] MEDS: SENNA/DOCUSATE SODIUM TABLET 2 TAB PO (23:03)
[2024-05-10] VITALS (20 sets, daily range): BP systolic 100–139; BP diastolic 54–80; PULSE 82–98; RESP 16–22; TEMP 36.4–36.8; O2SAT 92–97
--- NOTE | 2024-05-10 | ECHO_ITS ---
Patient Info Name: Neal Hoffman Age: 48 years : 1975 Gender: Male Ht: 70 in Wt: 276 lbs BSA: 2.54 m2 HR: 102 bpm BP: 139 / 80 mmHg Technical Quality: Good Exam Date: 05/10/2024 9:48 AM Exam Location: Echo Lab Patient Status: Inpatient Admit Date: 05/09/2024 Staff Ordering Physician: Francesca Burciaga PA-C [employer] Crew Chief: Nancy Choi RDCS Attending Provider: Cristiana Nickerson Referring Physician: Gualberto HART; Exam Type: CA echo doppler color flow Study Info Indications - Hypoxia - HTN - Edema Complete two-dimensional, color flow and Doppler transthoracic echocardiogram is performed. Summary 1. Complete two-dimensional, color flow and Doppler transthoracic echocardiogram is performed. 2. There is normal biventricular size and systolic function. 3. There is no significant valvular disease. Left Ventricle The left ventricle is normal in size and systolic function. Left ventricular ejection fraction is visually estimated to be 60-65%. Right Ventricle The right ventricle is normal in size and systolic function. Left Atria The left atrium is normal size. Right Atria The right atrium is normal size. Atrial Septum The atrial septum is normal. Aortic Valve The aortic valve is trileaflet and opens well. There is no aortic regurgitation. Pulmonic Valve Pulmonic valve is not well visualized. There is no color Doppler evidence of pulmonic valve regurgitation. Mitral Valve The mitral valve is normal. There is no mitral regurgitation. Tricuspid Valve The tricuspid valve is grossly normal. There is trace tricuspid regurgitation. Pericardium/Pleural Pericardium is normal in appearance with no evidence for significant pericardial effusion. Inferior Vena Cava Normal inferior vena cava with >50% collapse upon inspiration consistent with normal right atrial pressure, 3 mmHg. Aorta The aortic root at the level of the sinus of Valsalva measures 3.6 cm in diameter. Left Ventricular Outflow Tract Name Value Normal LVOT 2D LVOT Diameter 2.2 cm LVOT Doppler LVOT Peak Gradient 6 mmHg LVOT Mean Gradient 4 mmHg LVOT VTI 27 cm LVOT VTI/AV VTI Ratio 0.8 LVOT Stroke Volume 97 ml LVOT CO 21.1 l/min LVOT CI 8.3 l/min/m2 Pulmonic Valve Name Value Normal PV Doppler PV Peak Gradient 8 mmHg Tricuspid Valve Name Value Normal TV Regurgitation Doppler TR Peak Velocity 215 cm/s TR Peak Gradient 16 mmHg Estimated PAP/RSVP RA Pressure 3 mmHg <=5 PA Systolic Pressure 21 mmHg <36 RV Systolic Pressure 21 mmHg <36 Aorta Name Value Normal Ascending Aorta Ao Root Diameter (MM) 3.5 cm Ao Root Diam Index (MM) 1.4 cm/m2 Aortic Valve Name Value Normal AV Doppler AV Peak Velocity 186 cm/s AV Peak Gradient 14 mmHg AV Mean Gradient 9 mmHg AV VTI 35 cm AV Area (Cont Eq VTI) 2.8 cm2 >=3.0 AV Area (Cont Eq Dave) 2.5 cm2 AV Regurgitation 2D LVOT Area 3.6 cm2 Ventricles Name Value Normal LV Dimensions 2D/MM IVS Diastolic Thickness (2D) 1.0 cm 0.6-1.0 LVID Diastole (2D) 5.7 cm 4.2-5.8 LVIW Diastolic Thickness (2D) 1.1 cm 0.6-1.0 LVID Systole (2D) 3.0 cm 2.5-4.0 LVOT Diameter 2.2 cm LV Mass (2D Cubed) 237.30 g 88.00-224.00 LV Mass Index (2D Cubed) 93 g/m2 49-115 Relative Wall Thickness (2D) 0.38 LV Fractional Shortening/Ejection Fraction 2D/MM LV Fractional Shortening (2D) 46 % 25-43 LV EF (2D Teicholz) 77 % 52-72 LV Diastolic Volume (4C MOD) 137 ml LV EF (4C MOD) 66 % LV Diastolic Volume (2C MOD) 129 ml LV EF (2C MOD) 65 % LV Diastolic Volume (BP MOD) 133 ml 62-150 LV Diastolic Volume Index (BP MOD) 52 ml/m2 34-74 LV Systolic Volume (BP MOD) 46 ml 21-61 LV Systolic Volume Index (BP MOD) 18 ml/m2 11-31 LV EF (BP MOD) 66 % 52-72 LV Diastolic Length (4C) 8.5 cm LV Systolic Length (4C) 6.5 cm LV Stroke Volume (4C MOD) 91 ml RV Dimensions 2D/MM RVID Diastole (2D) 4.4 cm 2.5-3.5 Atria Name Value Normal LA Dimensions LA Dimension (MM) 3.8 cm 3.0-4.1 LA Volume (4C A-L) 56 ml LA Volume (BP A-L) 48 ml RA Dimensions RA Area (4C) 17.2 cm2 <=18.0 Report Signatures
[2024-05-10] MEDS: IPRATROPIUM 0.5 MG/ALBUTEROL SULFATE 2.5 MG AMPUL.NEB 3 ML INHALATION ×4 (02:03→19:35)
[2024-05-10] MEDS: methylPREDNISolone SOD SUCC 125 MG VIAL 40 MG IV PUSH ×4 (05:01→23:33)
[2024-05-10 05:18] LABS: Alveolar/Arterial O2 Gradient 292.4 mmHg; Base Excess ABG 1.3 mEq/l (+/-2.0); Carboxyhemoglobin 0.8 % THb (0-2.0); Device HIGH FLOW NASAL CANN; Fractional Inspired Oxygen 60 %; HCO3 ABG 27.3 mEq/l (22.0-26.0); Methemoglobin ABG 0.3 %THb (0-1.5); Modified Allen's Test Pass; Oxygen Content ABG 17.2 %vol (16.0-22.0); Oxygen Saturation ABG 95.6 % (95.0-100.0); Oxyhemoglobin 94.3 % THb (90.0-100.0); PO2 ABG 81.5 mmHg (80.0-100.0); PO2 FiO2 Ratio Arterial Blood 1.36 %; Reduced Hemoglobin 4.6 %THb (0-5.0); Site Drawn RIGHT RADIAL; Total Hemoglobin 12.9 g/dL (12.0-18.0); pH ABG 7.364 (7.350-7.450)
[2024-05-10 05:47] LABS: Sodium 139 mmol/L (137-145)
[2024-05-10 05:56] LABS: NT Pro B Type Natriuretic Pept 372 pg/mL (19.9-100)
[2024-05-10 06:21] LABS: Anion Gap 7 mmol/L (4-12); Blood Urea Nitrogen 18 mg/dL (9-20); Calcium 9.9 mg/dL (8.4-10.2); Carbon Dioxide 28 mmol/L (22-30); Chloride 104 mmol/L (98-107); Estimated CRCL calculation 74 ml/min; Estimated Glomerular Filt Rate 53; Glucose 155 mg/dL (65-110); Magnesium 2.5 mg/dL (1.6-2.3); Potassium 5.4 mmol/L (3.4-5.0)
--- NOTE | 2024-05-10 08:44 | PM.IMPN ---
Progress Note: A&P Assessment and Plan (1) Acute hypoxic on chronic hypercapnic respiratory failure: Code(s): J96.01 - Acute respiratory failure with hypoxia; J96.12 - Chronic respiratory failure with hypercapnia Status: Acute Assessment and Plan: Consult pulmonology Supplemental oxygen currently at 6 L high-flow Bronchodilators IV steroids Continue azithromycin Acapella/incentive spirometry Repeat ABG this morning showing pH of 7.364, pCO2 of 49, PO2 of 81.5 and HC03 of 27.3. Appreciate pulmonology as recommendations for further treatment. CPT ordered (2) Acute exacerbation of COPD with asthma: Code(s): J44.1 - Chronic obstructive pulmonary disease with (acute) exacerbation Status: Acute Assessment and Plan: See 1. (3) Bilateral lower extremity edema: Code(s): R60.0 - Localized edema Status: Acute Assessment and Plan: Suspect chronic in nature Venous Dopplers ordered to rule out DVT. (4) Renal failure: Code(s): N19 - Unspecified kidney failure Status: Acute Assessment and Plan: Suspect chronic in nature Creatinine trending downward at 1.42 today. Continue to monitor 1 L normal saline at 100 mL/hour ordered. (5) Obstructive sleep apnea on CPAP: Code(s): G47.33 - Obstructive sleep apnea (adult) (pediatric) Status: Chronic Assessment and Plan: BiPAP at HS (6) Type 2 diabetes mellitus: Code(s): E11.9 - Type 2 diabetes mellitus without complications Status: Acute Assessment and Plan: Glucose checks a.c. and HS and p.r.n. Continue moderate dose sliding scale insulin Hypoglycemic protocol A1c noted to be 5.0 Diabetic diet Continue Januvia (7) Hypertension: Code(s): I10 - Essential (primary) hypertension Status: Chronic Assessment and Plan: Currently running 1 teens to 130s over 60s to 80s Continue current medications of amlodipine 5 mg daily, hydrochlorothiazide 12.5 mg daily Continue to trend and monitor. (8) Tobacco dependence: Code(s): F17.200 - Nicotine dependence, unspecified, uncomplicated Status: Chronic Assessment and Plan: Nicotine Patch daily. Eighty pack year smoker Counseling performed for 7-10 minutes. (9) Hyperkalemia: Code(s): E87.5 - Hyperkalemia Status: Acute Assessment and Plan: Acute as per morning labs with potassium 5.4. Patient received a single L of IV fluids and we will recheck potassium this afternoon. Asymptomatic (10) Self-care deficit: Code(s): Z78.9 - Other specified health status Status: Acute Assessment and Plan: Care coordination consulted for possible new placement upon discharge. PT OT eval ordered Patient presented very disheveled and poorly kempt. Suspect given his current degree of confusion that he is unable to adequately care for himself. Time Spent With Patient Time with patient: 15 - 25 minutes Subjective Date/time seen: 05/10/24 08:44 Interval history: This is a pleasantly confused 48-year-old male patient is examined at the bedside today in interval assessment since being admitted to the hospital with acute on chronic COPD exacerbation and hypoxic respiratory failure requiring 6 L of high-flow oxygen at this time. Patient currently resides at [facility] and is pretty much independent with his daily activities there. He was admitted to the hospital last evening after presenting with increased dyspnea and unable to maintain his oxygen saturations. Chest x-ray was negative for any acute cardiopulmonary abnormalities. He was admitted to the hospital, started on steroids, antibiotics and bronchodilators. Patient alert and oriented to self and year only today. He was unable to answer where he is at or president was. He does not appear to be in any overt distress and appeared to be resting quietly upon my entry into the room. He does not have any acute complaints of pain or distress or any other acute symptoms. Review of Systems Review of Systems: All systems reviewed & are unremarkable except as noted in HPI and below Exam Narrative: General: Really can not, chronically ill-appearing male lying left-sided in bed at this time in no acute distress. HEENT: PERRL, EOMI. Sclera anicteric. Moist mucous membranes. Neck: Supple. Exam limited due to neck circumference. No JVD or bruits. Respiratory: Respirations are nonlabored patient has coarse rhonchi throughout all lobes worse on expiration. There is a prolonged expiratory phase. Cardiovascular: Regular rate and rhythm with S1-S2. Gastrointestinal: Abdomen is soft, obese, rotund, nontender, and nondistended with positive bowel sounds. Skin: Warm and dry. Chronic skin changes and erythema of the lower legs with scattered excoriations. No acute infection noted. Extremities: No cyanosis or clubbing. Chronic pitting and nonpitting edema of the lower extremities. No palpable knots or cords. Negative Chuck sign bilaterally. Neurological: Alert. Oriented to self and year only. Cranial nerves 2-12 are grossly intact. No gross focal deficits to casual conversation. Psychiatric: Cooperative with depressed mood and flat affect. Objective Data Vital Signs Vital Signs: Vital Signs - 24 hr 05/09/24 13:22 05/09/24 13:22 05/09/24 13:33 Temperature 98.0 F Pulse Rate 101 H Respiratory Rate 19 Blood Pressure 126/78 Pulse Oximetry 90 90 94 Oxygen Delivery Nasal Cannula Nasal Cannula Nasal Cannula Oxygen Flow Rate 6 6 6 05/09/24 13:36 05/09/24 13:42 05/09/24 14:00 Temperature Pulse Rate 100 93 99 Respiratory Rate 27 H 24 H Blood Pressure Pulse Oximetry Oxygen Delivery Oxygen Flow Rate 05/09/24 14:30 05/09/24 14:32 05/09/24 16:44 Temperature Pulse Rate 98 98 100 Respiratory Rate 23 H 25 H 26 H Blood Pressure 127/82 127/82 122/76 Pulse Oximetry 97 98 91 Oxygen Delivery Oxygen Flow Rate 05/09/24 16:46 05/09/24 16:49 05/09/24 19:00 Temperature Pulse Rate 101 H 100 103 H Respiratory Rate 21 H 25 H 24 H Blood Pressure 118/72 118/72 123/73 Pulse Oximetry 90 95 92 Oxygen Delivery Oxygen Flow Rate 05/09/24 19:49 05/09/24 19:58 05/09/24 20:00 Temperature 98.3 F Pulse Rate 102 H 104 H Respiratory Rate 20 22 H Blood Pressure 125/69 Pulse Oximetry 93 92 Oxygen Delivery High Flow Therapy with Na Oxygen Flow Rate 8 05/09/24 20:00 05/09/24 20:13 05/09/24 20:15 Temperature Pulse Rate 103 H 104 H 101 H Respiratory Rate 22 H Blood Pressure Pulse Oximetry 91 Oxygen Delivery High Flow Nasal Cannula Oxygen Flow Rate 6 05/10/24 00:00 05/10/24 02:03 05/10/24 02:10 Temperature Pulse Rate 82 85 89 Respiratory Rate 22 H 22 H Blood Pressure Pulse Oximetry Oxygen Delivery Oxygen Flow Rate 05/10/24 03:58 05/10/24 04:00 Temperature 97.5 F L Pulse Rate 88 87 Respiratory Rate 20 Blood Pressure 139/80 Pulse Oximetry 93 Oxygen Delivery Oxygen Flow Rate Intake/Output Intake/Output: Intake & Output 05/07/24 05/08/24 05/09/24 05/10/24 23:59 23:59 23:59 23:59 Intake Total 350 250 Output Total 475 Balance 350 -225 Meds/Results Medications: Active Medications Generic Name Dose Route Start Last Admin Trade Name Freq PRN Reason Stop Dose Admin Acetaminophen 650 mg 05/09/24 16:32 Acetaminophen 325 Mg Tablet PO Q4H PRN Mild Pain (1-3) or Fever Albuterol/Ipratropium 3 ml 05/09/24 20:00 05/10/24 02:03 Ipratropium 0.5 Mg/Albuterol Sulfate 2.5 Mg Ampul.Neb 3 Ml INHALATION 3 ml Q6HRT SIM Administration Amlodipine Besylate 5 mg 05/10/24 09:00 Amlodipine Besylate 5 Mg Tablet PO DAILY [facility] Aripiprazole 5 mg 05/10/24 09:00 Aripiprazole 5 Mg Tablet PO DAILY [facility] Aspirin 81 mg 05/10/24 09:00 Aspirin 81 Mg Chewable Tablet PO DAILY [facility] Azithromycin 250 mg 05/10/24 09:00 Azithromycin 250 Mg Tablet PO 05/13/24 09:01 DAILY [facility] Benztropine Mesylate 1 mg 05/09/24 22:05 05/09/24 23:02 Benztropine Mesylate 1 Mg Tablet PO 1 mg HS SIM Administration Desipramine HCl 150 mg 05/09/24 22:05 05/09/24 23:02 Desipramine Hcl 25 Mg Tablet PO 150 mg HS SIM Administration Dextrose 12.5 gm 05/09/24 21:53 Dextrose 50% 25 Gm/50 Ml Syringe IV PUSH PRN PRN Hypoglycemia Protocol Diclofenac Sodium 1 applic 05/10/24 09:00 Diclofenac Sodium 1% 100 Gm Gel (*Bkc) TOPICAL BID [facility] Enoxaparin Sodium 40 mg 05/10/24 09:00 Enoxaparin 40 Mg/0.4 Ml Syringe SUB-Q DAILY [facility] Fish Oil 1 gm 05/09/24 22:10 05/09/24 23:02 [place] 3 Polyunsat Fatty Acids 1 Gm Cap PO 1 gm HS SIM Administration Folic Acid 1 mg 05/10/24 09:00 Folic Acid 1 Mg Tablet PO DAILY [facility] Gabapentin 300 mg 05/09/24 21:55 05/09/24 23:03 Gabapentin 300 Mg Capsule PO 300 mg Q12HR SIM Administration Glucagon 1 mg 05/09/24 21:53 Glucagon For Inj 1 Mg Vial IM PRN PRN Hypoglycemia Protocol Glucose 15 gm 05/09/24 21:53 Glucose Oral Gel 15 Gm Of Glucse In 37.5 Gm Tube PO PRN PRN Hypoglycemia Protocol Guaifenesin 1,200 mg 05/10/24 09:00 Guaifenesin 12 Hr 600 Mg Tabcr PO Q12HR [facility] Hydrochlorothiazide 12.5 mg 05/10/24 09:00 Hydrochlorothiazide 12.5 Mg Capsule PO DAILY [facility] Dextrose 1,000 mls @ 100 mls/hr 05/09/24 21:53 Dextrose 5% 1,000 Ml IVPB PRN PRN Hypoglycemia Protocol Sodium Chloride 1,000 mls @ 100 mls/hr 05/10/24 07:15 Normal Saline Iv IV CONT 05/10/24 17:14 .Q10H [facility] Insulin Aspart 1 - 3 units 05/09/24 22:10 05/09/24 23:03 Insulin Aspart (*Bkc) 100 Units/Ml SUB-Q Not Given HS [facility] Protocol Insulin Aspart 3 - 6 units 05/10/24 08:00 Insulin Aspart (*Bkc) 100 Units/Ml SUB-Q TIDWM [facility] Protocol Ipratropium [place] 0.5 mg 05/09/24 20:00 Ipratropium Br 0.02% Inh Soln 0.5 Mg/2.5 Ml Vial INHALATION Q6HRT [facility] [place] Carbonate 300 mg 05/09/24 22:10 05/09/24 23:03 [place] Carbonate 300 Mg Capsule PO 300 mg BID SIM Administration Losartan Potassium 50 mg 05/10/24 09:00 Losartan Potassium 50 Mg Tablet PO DAILY [facility] Methylprednisolone Sodium Succinate 40 mg 05/09/24 18:00 05/10/24 05:01 Methylprednisolone Sod Succ 125 Mg Vial IV PUSH 40 mg Q6HR SIM Administration Nicotine 1 patch 05/09/24 22:10 05/09/24 23:03 Nicotine (*Pbkc) 21 Mg Patch TRANSDERM 1 patch DAILY [facility] Administration Oxybutynin Chloride 15 mg 05/10/24 09:00 Oxybutynin Chloride Xl 5 Mg Tab.Er.24 PO DAILY [facility] Perflutren Lipid Microsphere 0 ml 05/09/24 23:31 Perflutren Lipid Microspheres 1.5 Ml Vial Diluted To 10 Ml Total Volume IV PUSH 05/12/24 23:31 ONCE PRN adequate visualization Protocol Fluticasone/Salmeterol 2 puff 05/10/24 08:00 Fluticasone/Salmeterol 115-21 Mcg Inhaler 1 Puff INHALATION Q12HRT SIM Senna/Docusate Sodium 2 tab 05/09/24 22:10 05/09/24 23:03 Senna/Docusate Sodium Tablet PO 2 tab HS SIM Administration Simvastatin 40 mg 05/09/24 22:10 05/09/24 23:03 Simvastatin 20 Mg Tablet PO 40 mg QPM SIM Administration Sitagliptin Phosphate 50 mg 05/10/24 09:00 Sitagliptin Phosphate 50 Mg Tablet PO DAILY SIM Venlafaxine HCl 300 mg 05/10/24 09:00 Venlafaxine Hcl Xr 75 Mg Cap.Er.24h PO DAILY SIM Radiology Results: ITS Impressions Chest X-Ray 05/09/24 14:01 IMPRESSION: 1. No acute cardiopulmonary disease. Labs Labs: Laboratory Results - last 24 hr 05/09/24 05/09/24 05/09/24 13:30 13:43 14:46 WBC 7.3 RBC 4.16 L Hgb 12.6 L Hct 37.6 L MCV 90.4 MCH 30.3 MCHC 33.5 RDW 13.0 Plt Count 173 MPV 10.5 H Immature Gran % (Auto) 0.3 Neut % (Auto) 74.4 H Lymph % (Auto) 12.4 L [place] % (Auto) 9.5 H Eos % (Auto) 3.1 Baso % (Auto) 0.3 Lymph # (Auto) 0.91 [place] # (Auto) 0.7 H Eos # (Auto) 0.2 Baso # (Auto) 0.0 Abs Immat Gran (auto) 0.02 Absolute Neuts (auto) 5.5 Absolute Nucleated RBC 0.000 Nucleated RBC % 0.0 Puncture Site ABG pH ABG pCO2 ABG pO2 ABG PO2/FiO2 Ratio ABG HCO3 ABG O2 Saturation ABG O2 Content ABG Base Excess VBG pH 7.343 VBG pCO2 53.0 H VBG pO2 37.9 VBG HCO3 28.1 A-a Gradient Oxyhemoglobin Carboxyhemoglobin Methemoglobin Reduced Hemoglobin Total Hemoglobin O2 Delivery Device Nasal cannula O2 Liters/Min 6.0 FiO2 44 Sodium 140 Potassium 4.4 Chloride 103 Carbon Dioxide 29 Anion Gap 8 BUN 13 Creatinine 1.59 H Estim Creat Clear Calc Not Reportable Estimated GFR 46 L Glucose 104 POC Capillary Glucose Hemoglobin A1c Calcium 10.1 Magnesium Total Bilirubin 0.6 AST 21 ALT 25 Alkaline Phosphatase 85 Troponin I < 0.012 NT-Pro-B Natriuret Pep Total Protein 8.0 Albumin 4.3 TSH (Reflex) Urine Color Yellow Urine Appearance Clear Urine pH 6.0 Ur Specific [place] 1.007 Urine Protein Negative Urine Glucose (UA) Negative Urine Ketones Negative Ur Blood (Man) Negative Urine Nitrate Negative Urine Bilirubin Negative Urine Urobilinogen 0.2 Leukocyte Esterase Rfl Negative [place] Influenza A (RT-PCR) Negative Influenza B (RT-PCR) Negative RSV (RT-PCR) Negative SARS-CoV-2 RNA (RT-PCR) Negative 05/09/24 05/09/24 05/10/24 19:52 22:30 05:06 WBC RBC Hgb Hct MCV MCH MCHC RDW Plt Count MPV Immature Gran % (Auto) Neut % (Auto) Lymph % (Auto) [place] % (Auto) Eos % (Auto) Baso % (Auto) Lymph # (Auto) [place] # (Auto) Eos # (Auto) Baso # (Auto) Abs Immat Gran (auto) Absolute Neuts (auto) Absolute Nucleated RBC Nucleated RBC % Puncture Site Right radial ABG pH 7.364 ABG pCO2 49.0 H ABG pO2 81.5 ABG PO2/FiO2 Ratio 1.36 ABG HCO3 27.3 H ABG O2 Saturation 95.6 ABG O2 Content 17.2 ABG Base Excess 1.3 VBG pH VBG pCO2 VBG pO2 VBG HCO3 A-a Gradient 292.4 Oxyhemoglobin 94.3 Carboxyhemoglobin 0.8 Methemoglobin 0.3 Reduced Hemoglobin 4.6 Total Hemoglobin 12.9 O2 Delivery Device High flow nasal [place] O2 Liters/Min 10.0 FiO2 60 Sodium 139 Potassium 5.4 H Chloride 104 Carbon Dioxide 28 Anion Gap 7 BUN 18 Creatinine 1.42 H Estim Creat Clear Calc 74 Estimated GFR 53 L Glucose 155 H POC Capillary Glucose 170 H Hemoglobin A1c 5.0 Calcium 9.9 Magnesium 2.5 H Total Bilirubin AST ALT Alkaline Phosphatase Troponin I NT-Pro-B Natriuret Pep 372 H Total Protein Albumin TSH (Reflex) 1.620 Urine Color Urine Appearance Urine pH Ur Specific [place] Urine Protein Urine Glucose (UA) Urine Ketones Ur Blood (Man) Urine Nitrate Urine Bilirubin Urine Urobilinogen Leukocyte Esterase Rfl [place] 1.0 Influenza A (RT-PCR) Influenza B (RT-PCR) RSV (RT-PCR) SARS-CoV-2 RNA (RT-PCR) Quality VTE Prophylaxis VTE prophylaxis: pharmacologic ordered
[2024-05-10] MEDS: AZITHROMYCIN 250 MG TABLET PO (09:18)
[2024-05-10] MEDS: SITagliptin PHOSPHATE 50 MG TABLET PO (09:18)
[2024-05-10] MEDS: oxyBUTYnin CHLORIDE XL 5 MG TAB.ER.24 15 MG PO (09:18)
[2024-05-10] MEDS: VENLAFAXINE HCL XR 75 MG CAP.ER.24H 300 MG PO (09:18)
[2024-05-10] MEDS: guaiFENesin 12 HR 600 MG TABCR 1200 MG PO ×2 (09:18→20:22)
[2024-05-10] MEDS: amLODIPine BESYLATE 5 MG TABLET PO (09:18)
[2024-05-10] MEDS: LOSARTAN POTASSIUM 50 MG TABLET PO (09:18)
[2024-05-10 09:19] LABS: Glucose Point of Care 159 mg/dl (65-105)
[2024-05-10] MEDS: GABAPENTIN 300 MG CAPSULE PO ×2 (09:19→20:22)
[2024-05-10] MEDS: ARIPiprazole 5 MG TABLET PO (09:19)
[2024-05-10] MEDS: FOLIC ACID 1 MG TABLET PO (09:19)
[2024-05-10] MEDS: ASPIRIN 81 MG CHEWABLE TABLET PO (09:19)
[2024-05-10] MEDS: hydroCHLOROthiazide 12.5 MG CAPSULE PO (09:19)
[2024-05-10] MEDS: NICOTINE (*PBKC) 21 MG PATCH 1 PATCH TRANSDERM (09:33)
[2024-05-10] MEDS: SODIUM CHLORIDE 0.9% IV 1,000 ML 100 ML IV CONT (09:35)
[2024-05-10] MEDS: DICLOFENAC SODIUM 1% 100 GM GEL (*BKC) 1 APPLIC TOPICAL ×2 (09:37→17:25)
[2024-05-10] MEDS: LITHIUM CARBONATE 300 MG CAPSULE PO ×2 (09:38→17:23)
[2024-05-10] MEDS: ENOXAPARIN 40 MG/0.4 ML SYRINGE SUB-Q ×2 (09:40→20:22)
[2024-05-10] MEDS: FLUTICASONE/SALMETEROL 115-21 MCG INHALER 1 PUFF 2 PUFF INHALATION ×2 (09:42→19:36)
--- NOTE | 2024-05-10 12:27 | PM.CNPUL ---
Assessment and Plan Assessment and plan (1) Acute exacerbation of COPD with asthma: Code(s): J44.1 - Chronic obstructive pulmonary disease with (acute) exacerbation Status: Acute Assessment and Plan: This 48-year-old man, with a history of obstructive sleep apnea, COPD managed with maintenance bronchodilators, diabetes mellitus, and a psychiatric disorder, presented with an acute respiratory illness characterized by cough, wheezing, and shortness of breath. Chest imaging studies revealed clear lungs, and tests for common viruses returned negative. On physical examination, he exhibited bilateral wheezing and is receiving treatment for a COPD exacerbation, which appears to be the most likely diagnosis. Plan: I concur with the current treatment regimen, which includes IV steroids, nebulized short-acting bronchodilators, Zithromax, and supplemental oxygen. The patient should bring his own home CPAP device for use at night. I have increased the subcutaneous Lovenox dosage for enhanced DVT prophylaxis. I will continue to monitor the patient alongside you. (2) Obstructive sleep apnea on CPAP: Code(s): G47.33 - Obstructive sleep apnea (adult) (pediatric) Status: Chronic (3) Type 2 diabetes mellitus: Code(s): E11.9 - Type 2 diabetes mellitus without complications Status: Acute (4) Bilateral lower extremity edema: Code(s): R60.0 - Localized edema Status: Acute History of Present Illness History of Present Illness Consult date: 05/10/24 Chief complaint: COPD exacerbation Narrative: This 48-year-old male patient with a history of chronic obstructive pulmonary disease (COPD) presented with a two-day history of worsening shortness of breath, wheezing, and coughing. His medical history also includes hypertension, hyperlipidemia, sleep apnea (with inconsistent CPAP use), type 2 diabetes mellitus, PTSD, and chronic lower extremity edema. The patient reported a sensation of chest tightness that made it difficult for him to take a deep breath. He experienced a mild, mostly dry cough and felt feverish, though he did not measure his temperature. The patient was diagnosed with a COPD exacerbation, with negative results from both a chest imaging study and PCR tests for viral infections. He is currently being treated with antibiotics, IV steroids, and short-acting bronchodilators. Although he still has a mild cough, he does not experience shortness of breath while on supplemental oxygen, but he feels weak. A chest X-ray taken upon admission showed no active lung disease. Arterial blood gas analysis indicated mild acute respiratory acidosis, with a normal pH and a pCO2 of 49 mmHg. Regarding his obstructive sleep apnea, the patient underwent a sleep study elsewhere within the last six months but has not been consistent with CPAP therapy. He has a long history of smoking. No previous pulmonary function tests are available, and the patient is not currently under the care of a refractory repairer, although he is on maintenance bronchodilators. Review of Systems Review of Systems: All systems reviewed & are unremarkable except as noted in HPI and below (HPI and below) FOR[facility]LY [facility], [facility] Past Medical History Medical History (Updated 05/10/24 @ 08:55 by BRETT QuirogaC) Self-care deficit Hyperkalemia Schizophrenia Posttraumatic stress disorder Depression with anxiety Type 2 diabetes mellitus Obstructive sleep apnea on CPAP Hyperlipidemia Hypertension Tobacco dependence Asthma Chronic obstructive pulmonary disease Surgical History Surgical History (Updated 05/09/24 @ 23:25 by Francesca Burciaga PA-C) History of appendectomy Social History Social History (Updated 05/09/24 @ 23:25 by Francesca Burciaga PA-C) Social History: Surrogate medical decision maker: Maria G Cody, sister ([phone]). Code status: Full code. Smoking packs per day: 2 Smoking cigarettes per day: 40.0 Smoking status: Current every day smoker Tobacco type: cigarettes Alcohol intake: never Substance use: never Spiritual care concerns: No Meds Home Medications and Allergies Home Medications ?Medication ?Instructions ?Recorded ?Confirmed ?Type albuterol sulfate 90 mcg/actuation 1 puff inhalation Q4H PRN 05/09/24 05/09/24 History aerosol inhaler shortness of breath or wheezing amlodipine 5 mg tablet 5 mg PO DAILY 05/09/24 05/09/24 History aripiprazole 10 mg tablet 5 mg PO DAILY 05/09/24 05/09/24 History aspirin 81 mg capsule 81 mg PO DAILY 05/09/24 05/09/24 History benztropine 1 mg tablet 1 mg PO HS 05/09/24 05/09/24 History desipramine 150 mg tablet 150 mg PO HS 05/09/24 05/09/24 History diclofenac sodium 1 % topical gel See Rx Instructions topical 05/09/24 05/09/24 History .COMPLEX fluticasone 250 mcg-salmeterol 50 1 inh inhalation Q12H 05/09/24 05/09/24 History mcg/dose blistr powdr for inhalation folic acid 1 mg tablet 1 mg PO DAILY 05/09/24 05/09/24 History gabapentin 300 mg capsule 300 mg PO Q12H 05/09/24 05/09/24 History lithium carbonate 300 mg capsule 300 mg PO BID 05/09/24 05/09/24 History losartan 50 mg-hydrochlorothiazide 1 tablet PO DAILY 05/09/24 05/09/24 History 12.5 mg tablet metformin 1,000 mg tablet 1,000 mg PO BID 05/09/24 05/09/24 History omega 9-doj-iii-fish oil 1,000 mg 1 cap PO HS 05/09/24 05/09/24 History (120 mg-180 mg) capsule (Fish Oil) oxybutynin chloride 15 mg 15 mg PO DAILY 05/09/24 05/09/24 History tablet,extended release 24 hr sennosides 8.6 mg-docusate sodium 2 tab-cap PO HS 05/09/24 05/09/24 History 50 mg tablet (Senna-Time S) simvastatin 40 mg tablet 40 mg PO QPM 05/09/24 05/09/24 History sitagliptin phosphate 50 mg tablet 50 mg PO DAILY 05/09/24 05/09/24 History (Januvia) venlafaxine 150 mg 300 mg PO DAILY 05/09/24 05/09/24 History capsule,extended release 24 hr Allergies Allergy/AdvReac Type Severity Reaction Status Date / Time No Known Allergies Allergy Verified 05/09/24 18:39 Vital Signs Vital Signs - 24 hr 05/09/24 13:22 05/09/24 13:22 05/09/24 13:33 Temperature 36.7 C Pulse Rate 101 H Respiratory Rate 19 Blood Pressure 126/78 Pulse Oximetry 90 90 94 Oxygen Delivery Nasal Cannula Nasal Cannula Nasal Cannula Oxygen Flow Rate 6 6 6 05/09/24 13:36 05/09/24 13:42 05/09/24 14:00 Temperature Pulse Rate 100 93 99 Respiratory Rate 27 H 24 H Blood Pressure Pulse Oximetry Oxygen Delivery Oxygen Flow Rate 05/09/24 14:30 05/09/24 14:32 05/09/24 16:44 Temperature Pulse Rate 98 98 100 Respiratory Rate 23 H 25 H 26 H Blood Pressure 127/82 127/82 122/76 Pulse Oximetry 97 98 91 Oxygen Delivery Oxygen Flow Rate 05/09/24 16:46 05/09/24 16:49 05/09/24 19:00 Temperature Pulse Rate 101 H 100 103 H Respiratory Rate 21 H 25 H 24 H Blood Pressure 118/72 118/72 123/73 Pulse Oximetry 90 95 92 Oxygen Delivery Oxygen Flow Rate 05/09/24 19:49 05/09/24 19:58 05/09/24 20:00 Temperature 36.8 C Pulse Rate 102 H 104 H Respiratory Rate 20 22 H Blood Pressure 125/69 Pulse Oximetry 93 92 Oxygen Delivery High Flow Therapy with Na Oxygen Flow Rate 8 05/09/24 20:00 05/09/24 20:13 05/09/24 20:15 Temperature Pulse Rate 103 H 104 H 101 H Respiratory Rate 22 H Blood Pressure Pulse Oximetry 91 Oxygen Delivery High Flow Nasal Cannula Oxygen Flow Rate 6 05/10/24 00:00 05/10/24 02:03 05/10/24 02:10 Temperature Pulse Rate 82 85 89 Respiratory Rate 22 H 22 H Blood Pressure Pulse Oximetry Oxygen Delivery Oxygen Flow Rate 05/10/24 03:58 05/10/24 04:00 05/10/24 09:42 Temperature 36.4 C L Pulse Rate 88 87 90 Respiratory Rate 20 20 Blood Pressure 139/80 Pulse Oximetry 93 Oxygen Delivery Oxygen Flow Rate 05/10/24 09:44 05/10/24 09:50 Temperature Pulse Rate 90 Respiratory Rate 20 Blood Pressure Pulse Oximetry 93 Oxygen Delivery High Flow Nasal Cannula Oxygen Flow Rate 6 Exam Narrative: GENERAL APPEARANCE: Well developed, well nourished, alert and cooperative, and appears to be in no acute distress while on supplemental oxygen via nasal cannula SKIN: Inspection of the skin reveals no rashes, ulcerations or petechiae. HEENT: Sclerae anicteric and conjunctivae pink and moist. Extraocular movements were intact and pupils were equal, round, and reactive to light. The oral mucosa, hard and soft palate, tongue and posterior pharynx were normal. NECK: Supple. There was no thyroid enlargement, and no tenderness, or masses were felt. CHEST: Diffuse wheezing both expiratory and expiratory CARDIAC: There was a regular rate and rhythm without any murmurs, gallops, rubs. ABDOMEN: Soft and nontender with normal bowel sounds. There was no organomegaly. LYMPH NODES: No lymphadenopathy was appreciated in the neck. EXTREMITIES: No cyanosis, clubbing; chronic stasis dermatitis changes in lower extremities. NEUROLOGIC: Alert and oriented x 3. Normal affect. Results Laboratory Findings 05/09/24 13:43 05/10/24 05:06 ABG, PT/INR, D-dimer: ABG ABG pH 7.364 (7.350-7.450) 05/10/24 05:06 ABG pCO2 49.0 mmHg (35.0-45.0) H 05/10/24 05:06 ABG pO2 81.5 mmHg (80.0-100.0) 05/10/24 05:06 ABG O2 Saturation 95.6 % (95.0-100.0) 05/10/24 05:06 Abnormal lab findings: Abnormal Labs 05/09/24 05/09/24 05/09/24 13:30 13:43 19:52 RBC 4.16 L Hgb 12.6 L Hct 37.6 L MPV 10.5 H Neut % (Auto) 74.4 H Lymph % (Auto) 12.4 L [place] % (Auto) 9.5 H [place] # (Auto) 0.7 H ABG pCO2 ABG HCO3 VBG pCO2 53.0 H Potassium Creatinine 1.59 H Estimated GFR 46 L Glucose POC Capillary Glucose 170 H Magnesium NT-Pro-B Natriuret Pep 05/10/24 05/10/24 05:06 09:13 RBC Hgb Hct MPV Neut % (Auto) Lymph % (Auto) [place] % (Auto) [place] # (Auto) ABG pCO2 49.0 H ABG HCO3 27.3 H VBG pCO2 Potassium 5.4 H Creatinine 1.42 H Estimated GFR 53 L Glucose 155 H POC Capillary Glucose 159 H Magnesium 2.5 H NT-Pro-B Natriuret Pep 372 H
[2024-05-10 12:32] LABS: Glucose Point of Care 174 mg/dl (65-105)
--- NOTE | 2024-05-10 13:09 | PCWOUND ---
WOCN NOTE Received consult for patient having red legs. Spoke with RN for patient, who states legs are really red like cellulitis but no open areas are present. Patient not seen by wound care as, RN can not treat cellulitis.
[2024-05-10 15:32] LABS: Anion Gap 9 mmol/L (4-12); Blood Urea Nitrogen 23 mg/dL (9-20); Carbon Dioxide 26 mmol/L (22-30); Chloride 104 mmol/L (98-107); Estimated CRCL calculation 89 ml/min; Estimated Glomerular Filt Rate > 60; Glucose 131 mg/dL (65-110); Potassium 4.8 mmol/L (3.4-5.0); Sodium 139 mmol/L (137-145)
[2024-05-10 16:54] LABS: Glucose Point of Care 130 mg/dl (65-105)
[2024-05-10] MEDS: SIMVASTATIN 20 MG TABLET 40 MG PO (17:24)
[2024-05-10] MEDS: SENNA/DOCUSATE SODIUM TABLET 2 TAB PO (20:22)
[2024-05-10] MEDS: DESIPRAMINE HCL 25 MG TABLET 150 MG PO (20:22)
[2024-05-10] MEDS: BENZTROPINE MESYLATE 1 MG TABLET PO (20:22)
[2024-05-10] MEDS: OMEGA 3 POLYUNSAT FATTY ACIDS 1 GM CAP PO (20:22)
[2024-05-10 21:24] LABS: Glucose Point of Care 189 mg/dl (65-105)
[2024-05-11] VITALS (15 sets, daily range): BP systolic 116–125; BP diastolic 72–88; PULSE 77–94; RESP 17–20; TEMP 36.5–36.9; O2SAT 83–97
[2024-05-11] MEDS: IPRATROPIUM 0.5 MG/ALBUTEROL SULFATE 2.5 MG AMPUL.NEB 3 ML INHALATION ×4 (02:22→19:44)
[2024-05-11] MEDS: methylPREDNISolone SOD SUCC 125 MG VIAL 40 MG IV PUSH ×2 (05:39→12:52)
[2024-05-11] MEDS: FLUTICASONE/SALMETEROL 115-21 MCG INHALER 1 PUFF 2 PUFF INHALATION ×2 (07:49→19:44)
[2024-05-11 08:53] LABS: Glucose Point of Care 140 mg/dl (65-105)
[2024-05-11] MEDS: LITHIUM CARBONATE 300 MG CAPSULE PO ×2 (09:32→17:10)
[2024-05-11] MEDS: FOLIC ACID 1 MG TABLET PO (09:32)
[2024-05-11] MEDS: ARIPiprazole 5 MG TABLET PO (09:32)
[2024-05-11] MEDS: GABAPENTIN 300 MG CAPSULE PO ×2 (09:32→21:09)
[2024-05-11] MEDS: ASPIRIN 81 MG CHEWABLE TABLET PO (09:32)
[2024-05-11] MEDS: AZITHROMYCIN 250 MG TABLET PO (09:32)
[2024-05-11] MEDS: SITagliptin PHOSPHATE 50 MG TABLET PO (09:32)
[2024-05-11] MEDS: LOSARTAN POTASSIUM 50 MG TABLET PO (09:32)
[2024-05-11] MEDS: hydroCHLOROthiazide 12.5 MG CAPSULE PO (09:33)
[2024-05-11] MEDS: VENLAFAXINE HCL XR 75 MG CAP.ER.24H 300 MG PO (09:33)
[2024-05-11] MEDS: guaiFENesin 12 HR 600 MG TABCR 1200 MG PO ×2 (09:33→21:09)
[2024-05-11] MEDS: oxyBUTYnin CHLORIDE XL 5 MG TAB.ER.24 15 MG PO (09:33)
[2024-05-11] MEDS: amLODIPine BESYLATE 5 MG TABLET PO (09:33)
[2024-05-11] MEDS: DICLOFENAC SODIUM 1% 100 GM GEL (*BKC) 1 APPLIC TOPICAL ×2 (09:35→17:14)
[2024-05-11] MEDS: NICOTINE (*PBKC) 21 MG PATCH 1 PATCH TRANSDERM (09:35)
[2024-05-11] MEDS: ENOXAPARIN 40 MG/0.4 ML SYRINGE SUB-Q ×2 (09:37→21:10)
[2024-05-11 10:06] LABS: Alanine Aminotransferase 23 U/L (6-50); Albumin Level 4.3 g/dL (3.5-5.1); Alkaline Phosphatase 72 U/L (38-126); Anion Gap 10 mmol/L (4-12); Aspartate Amino Transferase 19 U/L (17-59); Bilirubin,Total 0.4 mg/dL (0.2-1.3); Blood Urea Nitrogen 26 mg/dL (9-20); Calcium 10.1 mg/dL (8.4-10.2); Carbon Dioxide 26 mmol/L (22-30); Chloride 105 mmol/L (98-107); Estimated CRCL calculation 74 ml/min; Estimated Glomerular Filt Rate 53; Glucose 150 mg/dL (65-110); Potassium 5.2 mmol/L (3.4-5.0); Sodium 141 mmol/L (137-145)
--- NOTE | 2024-05-11 10:12 | PCPTNOTE ---
Per chart review and OT evaluation, pt is independent and functioning at baseline. Does not require therapy services, will d/c order at this time.
--- NOTE | 2024-05-11 10:25 | PM.PNPUL ---
Progress Note: A&P Assessment and Plan (1) Acute exacerbation of COPD with asthma: Code(s): J44.1 - Chronic obstructive pulmonary disease with (acute) exacerbation Status: Acute Assessment and Plan: A 48-year-old male patient with a medical history of obstructive sleep apnea, COPD treated with maintenance bronchodilators, diabetes mellitus, and a psychiatric disorder, presented with an acute respiratory illness. His symptoms included cough, wheezing, and shortness of breath. Chest imaging showed clear lungs, and tests for common viral infections were negative. During physical examination, bilateral wheezing was noted. He is currently being treated for a COPD exacerbation, which is considered the most probable diagnosis. Although the patient reports some clinical improvement, bilateral wheezing persists. His oxygen flow was increased to 6 liters per minute due to hypoxemia, likely caused by dependent atelectasis, as he spends most of his time in bed. Plan: Continue with the current treatment regimen, which includes antibiotics, intravenous steroids, nebulized short-acting bronchodilators, and DVT prophylaxis. Encourage the patient to get out of bed and sit in a chair, and use incentive spirometry. (2) Obstructive sleep apnea on CPAP: Code(s): G47.33 - Obstructive sleep apnea (adult) (pediatric) Status: Chronic (3) Type 2 diabetes mellitus: Code(s): E11.9 - Type 2 diabetes mellitus without complications Status: Acute Subjective Date/time seen: 05/11/24 10:25 Interval history: Patient stated that he is doing better but oxygen flow increased to 6 liters/minute this a.m.. No fever chills. Continues to have a coughing. Review of Systems Review of Systems: All systems reviewed & are unremarkable except as noted in HPI and below (HPI and below) Exam Narrative: GENERAL APPEARANCE: Well developed, well nourished, alert and cooperative, and appears to be in no acute distress while on supplemental oxygen via nasal cannula SKIN: Inspection of the skin reveals no rashes, ulcerations or petechiae. HEENT: Sclerae anicteric and conjunctivae pink and moist. Extraocular movements were intact and pupils were equal, round, and reactive to light. The oral mucosa, hard and soft palate, tongue and posterior pharynx were normal. NECK: Supple. There was no thyroid enlargement, and no tenderness, or masses were felt. CHEST: Diffuse wheezing both expiratory and expiratory CARDIAC: There was a regular rate and rhythm without any murmurs, gallops, rubs. ABDOMEN: Soft and nontender with normal bowel sounds. There was no organomegaly. LYMPH NODES: No lymphadenopathy was appreciated in the neck. EXTREMITIES: No cyanosis, clubbing; chronic stasis dermatitis changes in lower extremities. NEUROLOGIC: Alert and oriented x 3. Normal affect. Objective Data Vital Signs Vital Signs: Vital Signs - 24 hr 05/10/24 14:24 05/10/24 15:06 05/10/24 16:00 Temperature 36.4 C Pulse Rate 90 89 98 Respiratory Rate 22 H 16 Blood Pressure 110/62 Pulse Oximetry 96 Oxygen Delivery Oxygen Flow Rate 05/10/24 19:35 05/10/24 19:35 05/10/24 19:46 Temperature Pulse Rate 91 98 Respiratory Rate 21 H 20 Blood Pressure Pulse Oximetry 94 Oxygen Delivery High Flow Nasal Cannula Oxygen Flow Rate 6 05/10/24 20:00 05/10/24 20:20 05/10/24 23:10 Temperature 36.8 C Pulse Rate 95 Respiratory Rate 20 Blood Pressure 100/54 L Pulse Oximetry 97 97 96 Oxygen Delivery High Flow Therapy with Na High Flow Nasal Cannula Oxygen Flow Rate 6 6 05/10/24 23:30 05/10/24 23:34 05/11/24 02:10 Temperature Pulse Rate 89 Respiratory Rate 19 Blood Pressure Pulse Oximetry 92 94 83 L Oxygen Delivery High Flow Nasal Cannula Autopap Autopap Oxygen Flow Rate 4 4 05/11/24 02:22 05/11/24 02:22 05/11/24 02:24 Temperature Pulse Rate 84 84 Respiratory Rate 19 19 Blood Pressure Pulse Oximetry 90 90 Oxygen Delivery Autopap Autopap Oxygen Flow Rate 6 05/11/24 02:35 05/11/24 04:43 05/11/24 07:53 Temperature 36.9 C Pulse Rate 83 92 Respiratory Rate 20 17 Blood Pressure 116/72 Pulse Oximetry 95 93 Oxygen Delivery Nasal Cannula Oxygen Flow Rate 4 05/11/24 07:53 05/11/24 08:08 05/11/24 09:53 Temperature Pulse Rate 77 81 Respiratory Rate 20 20 Blood Pressure Pulse Oximetry Oxygen Delivery High Flow Therapy with Na Oxygen Flow Rate 6 Intake/Output Intake/Output: Intake & Output 05/08/24 05/09/24 05/10/24 05/11/24 23:59 23:59 23:59 23:59 Intake Total 350 1220 220 Output Total 6311 511 Balance 904 -013 -398 Meds/Results Medications: Active Medications Generic Name Dose Route Start Last Admin Trade Name Heladioq PRN Reason Stop Dose Admin Acetaminophen 650 mg 05/09/24 16:32 Acetaminophen 325 Mg Tablet PO Q4H PRN Mild Pain (1-3) or Fever Albuterol/Ipratropium 3 ml 05/09/24 20:00 05/11/24 07:49 Ipratropium 0.5 Mg/Albuterol Sulfate 2.5 Mg Ampul.Neb 3 Ml INHALATION 3 ml Q6HRT SIM Administration Amlodipine Besylate 5 mg 05/10/24 09:00 05/11/24 09:33 Amlodipine Besylate 5 Mg Tablet PO 5 mg DAILY SIM Administration Aripiprazole 5 mg 05/10/24 09:00 05/11/24 09:32 Aripiprazole 5 Mg Tablet PO 5 mg DAILY SIM Administration Aspirin 81 mg 05/10/24 09:00 05/11/24 09:32 Aspirin 81 Mg Chewable Tablet PO 81 mg DAILY SIM Administration Azithromycin 250 mg 05/10/24 09:00 05/11/24 09:32 Azithromycin 250 Mg Tablet PO 05/13/24 09:01 250 mg DAILY SIM Administration Benztropine Mesylate 1 mg 05/09/24 22:05 05/10/24 20:22 Benztropine Mesylate 1 Mg Tablet PO 1 mg HS SIM Administration Desipramine HCl 150 mg 05/09/24 22:05 05/10/24 20:22 Desipramine Hcl 25 Mg Tablet PO 150 mg HS SIM Administration Dextrose 12.5 gm 05/09/24 21:53 Dextrose 50% 25 Gm/50 Ml Syringe IV PUSH PRN PRN Hypoglycemia Protocol Diclofenac Sodium 1 applic 05/10/24 09:00 05/11/24 09:35 Diclofenac Sodium 1% 100 Gm Gel (*Bk) TOPICAL 1 applic BID SIM Administration Enoxaparin Sodium 40 mg 05/10/24 21:00 05/11/24 09:37 Enoxaparin 40 Mg/0.4 Ml Syringe SUB-Q 40 mg Q12HR SIM Administration Fish Oil 1 gm 05/09/24 22:10 05/10/24 20:22 [place] 3 Polyunsat Fatty Acids 1 Gm Cap PO 1 gm HS SIM Administration Folic Acid 1 mg 05/10/24 09:00 05/11/24 09:32 Folic Acid 1 Mg Tablet PO 1 mg DAILY SIM Administration Gabapentin 300 mg 05/09/24 21:55 05/11/24 09:32 Gabapentin 300 Mg Capsule PO 300 mg Q12HR SIM Administration Glucagon 1 mg 05/09/24 21:53 Glucagon For Inj 1 Mg Vial IM PRN PRN Hypoglycemia Protocol Glucose 15 gm 05/09/24 21:53 Glucose Oral Gel 15 Gm Of Glucse In 37.5 Gm Tube PO PRN PRN Hypoglycemia Protocol Guaifenesin 1,200 mg 05/10/24 09:00 05/11/24 09:33 Guaifenesin 12 Hr 600 Mg Tabcr PO 1,200 mg Q12HR SIM Administration Hydrochlorothiazide 12.5 mg 05/10/24 09:00 05/11/24 09:33 Hydrochlorothiazide 12.5 Mg Capsule PO 12.5 mg DAILY SIM Administration Dextrose 1,000 mls @ 100 mls/hr 05/09/24 21:53 Dextrose 5% 1,000 Ml IVPB PRN PRN Hypoglycemia Protocol Insulin Aspart 1 - 3 units 05/09/24 22:10 05/10/24 20:23 Insulin Aspart (*Bkc) 100 Units/Ml SUB-Q Not Given HS SIM Protocol Insulin Aspart 3 - 6 units 05/10/24 08:00 05/11/24 09:03 Insulin Aspart (*Bkc) 100 Units/Ml SUB-Q Not Given TIDWM SIM Protocol [place] Carbonate 300 mg 05/09/24 22:10 05/11/24 09:32 [place] Carbonate 300 Mg Capsule PO 300 mg BID SIM Administration Losartan Potassium 50 mg 05/10/24 09:00 05/11/24 09:32 Losartan Potassium 50 Mg Tablet PO 50 mg DAILY SIM Administration Methylprednisolone Sodium Succinate 40 mg 05/09/24 18:00 05/11/24 05:39 Methylprednisolone Sod Succ 125 Mg Vial IV PUSH 40 mg Q6HR SIM Administration Nicotine 1 patch 05/10/24 09:00 05/11/24 09:35 Nicotine (*Pbkc) 21 Mg Patch TRANSDERM 1 patch DAILY SIM Administration Oxybutynin Chloride 15 mg 05/10/24 09:00 05/11/24 09:33 Oxybutynin Chloride Xl 5 Mg Tab.Er.24 PO 15 mg DAILY SIM Administration Perflutren Lipid Microsphere 0 ml 05/09/24 23:31 Perflutren Lipid Microspheres 1.5 Ml Vial Diluted To 10 Ml Total Volume IV PUSH 05/12/24 23:31 ONCE PRN adequate visualization Protocol Fluticasone/Salmeterol 2 puff 05/10/24 08:00 05/11/24 07:49 Fluticasone/Salmeterol 115-21 Mcg Inhaler 1 Puff INHALATION 2 puff Q12HRT SIM Administration Senna/Docusate Sodium 2 tab 05/09/24 22:10 05/10/24 20:22 Senna/Docusate Sodium Tablet PO 2 tab HS SIM Administration Simvastatin 40 mg 05/09/24 22:10 05/10/24 17:24 Simvastatin 20 Mg Tablet PO 40 mg QPM SIM Administration Sitagliptin Phosphate 50 mg 05/10/24 09:00 05/11/24 09:32 Sitagliptin Phosphate 50 Mg Tablet PO 50 mg DAILY SIM Administration Venlafaxine HCl 300 mg 05/10/24 09:00 05/11/24 09:33 Venlafaxine Hcl Xr 75 Mg Cap.Er.24h PO 300 mg DAILY SIM Administration Radiology Results: ITS Impressions Chest X-Ray 05/09/24 14:01 IMPRESSION: 1. No acute cardiopulmonary disease. Venous Doppler Study 05/10/24 09:19 IMPRESSION: 1. No deep venous thrombosis. Labs Labs: Laboratory Results - last 24 hr 05/10/24 05/10/24 05/10/24 12:27 14:23 16:52 Sodium 139 Potassium 4.8 Chloride 104 Carbon Dioxide 26 Anion Gap 9 BUN 23 H Creatinine 1.18 Estim Creat Clear Calc 89 Estimated GFR > 60 Glucose 131 H POC Capillary Glucose 174 H 130 H Calcium 10.0 Total Bilirubin AST ALT Alkaline Phosphatase Total Protein Albumin 05/10/24 05/11/24 05/11/24 20:22 08:39 09:36 Sodium 141 Potassium 5.2 H Chloride 105 Carbon Dioxide 26 Anion Gap 10 BUN 26 H Creatinine 1.42 H Estim Creat Clear Calc 74 Estimated GFR 53 L Glucose 150 H POC Capillary Glucose 189 H 140 H Calcium 10.1 Total Bilirubin 0.4 AST 19 ALT 23 Alkaline Phosphatase 72 Total Protein 8.0 Albumin 4.3
[2024-05-11 10:29] LABS: Hematocrit 37.4 % (42.0-52.0); Hemoglobin 12.6 g/dL (14.0-18.0); Mean Corpuscular HGB Conc 33.7 g/dl (32-36); Mean Corpuscular Hemoglobin 30.8 pg (26-34); Mean Corpuscular Volume 91.4 fl (80-100); Mean Platelet Volume 11.1 fl (7.4-10.4); Platelet Count Result 207 k/mm3 (150-375); Red Blood Count 4.09 M/mm3 (4.6-6.20)
[2024-05-11 12:31] LABS: Glucose Point of Care 160 mg/dl (65-105)
--- NOTE | 2024-05-11 16:01 | P.PNIM_ITS ---
Progress Note: A&P Assessment and Plan (1) Acute hypoxic on chronic hypercapnic respiratory failure: Code(s): J96.01 - Acute respiratory failure with hypoxia; J96.12 - Chronic respiratory failure with hypercapnia Status: Acute Assessment and Plan: * Consult pulmonology * Supplemental oxygen currently at 6 L high-flow * Bronchodilators * Discontinue IV steroids and started prednisone 40 mg p.o. for 3 days * Continue azithromycin * Acapella/incentive spirometry * Repeat ABG this morning showing pH of 7.364, pCO2 of 49, PO2 of 81.5 and HC03 of 27.3. * Appreciate pulmonology as recommendations for further treatment. * CPT ordered (2) Acute exacerbation of COPD with asthma: Code(s): J44.1 - Chronic obstructive pulmonary disease with (acute) exacerbation Status: Acute Assessment and Plan: * See 1. (3) Bilateral lower extremity edema: Code(s): R60.0 - Localized edema Status: Acute Assessment and Plan: * Suspect chronic in nature * Venous Dopplers ordered to rule out DVT. (4) Renal failure: Code(s): N19 - Unspecified kidney failure Status: Acute Assessment and Plan: * Started gentle fluid resuscitation * Hold losartan * Avoid nephrotoxic drugs * Monitor BUN and creatinine (5) Obstructive sleep apnea on CPAP: Code(s): G47.33 - Obstructive sleep apnea (adult) (pediatric) Status: Chronic Assessment and Plan: * BiPAP at HS (6) Type 2 diabetes mellitus: Code(s): E11.9 - Type 2 diabetes mellitus without complications Status: Acute Assessment and Plan: * Glucose checks a.c. and HS and p.r.n. * Continue moderate dose sliding scale insulin * Hypoglycemic protocol * A1c noted to be 5.0 * Diabetic diet * Continue Januvia (7) Hypertension: Code(s): I10 - Essential (primary) hypertension Status: Chronic Assessment and Plan: * Currently running 1 teens to 130s over 60s to 80s * Continue current medications of amlodipine 5 mg daily, hydrochlorothiazide 12.5 mg daily * Continue to trend and monitor. (8) Tobacco dependence: Code(s): F17.200 - Nicotine dependence, unspecified, uncomplicated Status: Chronic Assessment and Plan: * Nicotine Patch daily. * Eighty pack year smoker * Counseling performed for 7-10 minutes. (9) Hyperkalemia: Code(s): E87.5 - Hyperkalemia Status: Acute Assessment and Plan: * Acute as per morning labs with potassium 5.4. Patient received a single L of IV fluids and we will recheck potassium this afternoon. * Asymptomatic (10) Self-care deficit: Code(s): Z78.9 - Other specified health status Status: Acute Assessment and Plan: * Care coordination consulted for possible new placement upon discharge. * PT OT eval ordered * Patient presented very disheveled and poorly kempt. Suspect given his current degree of confusion that he is unable to adequately care for himself. Subjective Date/time seen: 05/11/24 16:01 Interval history: Ordered 1 dose of Kayexalate. Patient creatinine has been rising up. Will start gentle fluid resuscitation. Patient agrees for the fluids. Patient is a chronic smoker smokes more than 1 ppd per day. Will hold losartan. Review of Systems Review of Systems: 12 systems were reviewed and are negativ e except for as per HPI. All systems reviewed & are unremarkable except as noted in HPI and below Exam Narrative: General: Really can not, chronically ill-appearing male lying left-sided in bed at this time in no acute distress. HEENT: PERRL, EOMI. Sclera anicteric. Moist mucous membranes. Neck: Supple. Exam limited due to neck circumference. No JVD or bruits. Respiratory: Respirations are nonlabored patient has coarse rhonchi throughout all lobes worse on expiration. There is a prolonged expiratory phase. Cardiovascular: Regular rate and rhythm with S1-S2. Gastrointestinal: Abdomen is soft, obese, rotund, nontender, and nondistended with positive bowel sounds. Skin: Warm and dry. Chronic skin changes and erythema of the lower legs with scattered excoriations. No acute infection noted. Extremities: No cyanosis or clubbing. Chronic pitting and nonpitting edema of t he lower extremities. No palpable knots or cords. Negative Chuck sign bilaterally. Neurological: Alert. Oriented to self and year only. Cranial nerves 2-12 are grossly intact. No gross focal deficits to casual conversation. Psychiatric: Cooperative with depressed mood and flat affect. Objective Data Vital Signs Vital Signs: Vital Signs - 24 hr 05/10/24 19:35 05/10/24 19:35 05/10/24 19:46 Temperature Pulse Rate 91 98 Respiratory Rate 21 H 20 Blood Pressure Pulse Oximetry 94 Oxygen Delivery High Flow Nasal Cannula Oxygen Flow Rate 6 05/10/24 20:00 05/10/24 20:20 05/10/24 23:10 Temperature 98.3 F Pulse Rate 95 Respiratory Rate 20 Blood Pressure 100/54 L Pulse Oximetry 97 97 96 Oxygen Delivery High Flow Therapy with Na High Flow Nasal Cannula Oxygen Flow Rate 6 6 05/10/24 23:30 05/10/24 23:34 05/11/24 02:10 Temperature Pulse Rate 89 Respiratory Rate 19 Blood Pressure Pulse Oximetry 92 94 83 L Oxygen Delivery High Flow Nasal Cannula Autopap Autopap Oxygen Flow Rate 4 4 05/11/24 02:22 05/11/24 02:22 05/11/24 02:24 Temperature Pulse Rate 84 84 Respiratory Rate 19 19 Blood Pressure Pulse Oximetry 90 90 Oxygen Delivery Autopap Autopap Oxygen Flow Rate 6 05/11/24 02:35 05/11/24 04:43 05/11/24 07:53 Temperature 98.4 F Pulse Rate 83 92 Respiratory Rate 20 17 Blood Pressure 116/72 Pulse Oximetry 95 93 Oxygen Delivery Nasal Cannula Oxygen Flow Rate 4 05/11/24 07:53 05/11/24 08:00 05/11/24 08:08 Temperature Pulse Rate 77 81 Respiratory Rate 20 20 Blood Pressure Pulse Oximetry 94 Oxygen Delivery High Flow Therapy with Na Oxygen Flow Rate 6 05/11/24 09:53 05/11/24 14:00 05/11/24 14:53 Temperature 97.7 F Pulse Rate 81 94 Respiratory Rate 18 20 Blood Pressure 125/77 Pulse Oximetry 96 Oxygen Delivery High Flow Therapy with Na Oxygen Flow Rate 6 05/11/24 15:01 Temperature Pulse Rate 91 Respiratory Rate 20 Blood Pressure Pulse Oximetry Oxygen Delivery Oxygen Flow Rate Intake/Output Intake/Output: Intake & Output 05/08/24 05/09/24 05/10/24 05/11/24 23:59 23:59 23:59 23:59 Intake Total 350 1220 460 Output Total 1975 900 Balance 350 -482 -067 Meds/Results Medications: Active Medications Generic Name Dose Route Start Last Admin Trade Name Freq PRN Reason Stop Dose Admin Acetaminophen 650 mg 05/09/24 16:32 Acetaminophen 325 Mg Tablet PO Q4H PRN Mild Pain (1-3) or Fever Albuterol/Ipratropium 3 ml 03/12/25 20:00 05/11/24 14:52 Ipratropium 0.5 Mg/Albuterol Sulfate 2.5 Mg Ampul.Neb 3 Ml INHALATION 3 ml Q6HRT SIM Administration Amlodipine Besylate 5 mg 05/10/24 09:00 05/11/24 09:33 Amlodipine Besylate 5 Mg Tablet PO 5 mg DAILY SIM Administration Aripiprazole 5 mg 05/10/24 09:00 05/11/24 09:32 Aripiprazole 5 Mg Tablet PO 5 mg DAILY SIM Administration Aspirin 81 mg 05/10/24 09:00 05/11/24 09:32 Aspirin 81 Mg Chewable Tablet PO 81 mg DAILY SIM Administration Azithromycin 250 mg 05/10/24 09:00 05/11/24 09:32 Azithromycin 250 Mg Tablet PO 05/13/24 09:01 250 mg DAILY SIM Administration Benztropine Mesylate 1 mg 05/09/24 22:05 05/10/24 20:22 Benztropine Mesylate 1 Mg Tablet PO 1 mg HS SIM Administration Desipramine HCl 150 mg 05/09/24 22:05 05/10/24 20:22 Desipramine Hcl 25 Mg Tablet PO 150 mg HS SIM Administration Dextrose 12.5 gm 05/09/24 21:53 Dextrose 50% 25 Gm/50 Ml Syringe IV PUSH PRN PRN Hypoglycemia Protocol Diclofenac Sodium 1 applic 05/10/24 09:00 05/11/24 09:35 Diclofenac Sodium 1% 100 Gm Gel (*Bkc) TOPICAL 1 applic BID SIM Administration Enoxaparin Sodium 40 mg 05/10/24 21:00 05/11/24 09:37 Enoxaparin 40 Mg/0.4 Ml Syringe SUB-Q 40 mg Q12HR SIM Administration Fish Oil 1 gm 05/09/24 22:10 05/10/24 20:22 [place] 3 Polyunsat Fatty Acids 1 Gm Cap PO 1 gm HS SIM Administration Folic Acid 1 mg 05/10/24 09:00 05/11/24 09:32 Folic Acid 1 Mg Tablet PO 1 mg DAILY SIM Administration Gabapentin 300 mg 05/09/24 21:55 05/11/24 09:32 Gabapentin 300 Mg Capsule PO 300 mg Q12HR SIM Administration Glucagon 1 mg 05/09/24 21:53 Glucagon For Inj 1 Mg Vial IM PRN PRN Hypoglycemia Protocol Glucose 15 gm 05/09/24 21:53 Glucose Oral Gel 15 Gm Of Glucse In 37.5 Gm Tube PO PRN PRN Hypoglycemia Protocol Guaifenesin 1,200 mg 05/10/24 09:00 05/11/24 09:33 Guaifenesin 12 Hr 600 Mg Tabcr PO 1,200 mg Q12HR SIM Administration Hydrochlorothiazide 12.5 mg 05/10/24 09:00 05/11/24 09:33 Hydrochlorothiazide 12.5 Mg Capsule PO 12.5 mg DAILY SIM Administration Dextrose 1,000 mls @ 100 mls/hr 05/09/24 21:53 Dextrose 5% 1,000 Ml IVPB PRN PRN Hypoglycemia Protocol Sodium Chloride 1,000 mls @ 70 mls/hr 05/11/24 14:35 Normal Saline Iv IV CONT .[id number] SIM Insulin Aspart 1 - 3 units 05/09/24 22:10 05/10/24 20:23 Insulin Aspart (*Bkc) 100 Units/Ml SUB-Q Not Given HS SIM Protocol Insulin Aspart 3 - 6 units 05/10/24 08:00 05/11/24 12:51 Insulin Aspart (*Bkc) 100 Units/Ml SUB-Q Not Given TIDWM SIM Protocol [place] Carbonate 300 mg 05/09/24 22:10 05/11/24 09:32 [place] Carbonate 300 Mg Capsule PO 300 mg BID SIM Administration Losartan Potassium 50 mg 05/10/24 09:00 05/11/24 09:32 Losartan Potassium 50 Mg Tablet PO 50 mg DAILY SIM Administration Methylprednisolone Sodium Succinate 40 mg 05/09/24 18:00 05/11/24 12:52 Methylprednisolone Sod Succ 125 Mg Vial IV PUSH 40 mg Q6HR SIM Administration Nicotine 1 patch 05/10/24 09:00 05/11/24 09:35 Nicotine (*Pbkc) 21 Mg Patch TRANSDERM 1 patch DAILY SIM Administration Oxybutynin Chloride 15 mg 05/10/24 09:00 05/11/24 09:33 Oxybutynin Chloride Xl 5 Mg Tab.Er.24 PO 15 mg DAILY SIM Administration Perflutren Lipid Microsphere 0 ml 05/09/24 23:31 Perflutren Lipid Microspheres 1.5 Ml Vial Diluted To 10 Ml Total Volume IV PUSH 05/12/24 23:31 ONCE PRN adequate visualization Protocol Fluticasone/Salmeterol 2 puff 05/10/24 08:00 05/11/24 07:49 Fluticasone/Salmeterol 115-21 Mcg Inhaler 1 Puff INHALATION 2 puff Q12HRT SIM Administration Senna/Docusate Sodium 2 tab 05/09/24 22:10 05/10/24 20:22 Senna/Docusate Sodium Tablet PO 2 tab HS SIM Administration Simvastatin 40 mg 05/09/24 22:10 05/10/24 17:24 Simvastatin 20 Mg Tablet PO 40 mg QPM SIM Administration Sitagliptin Phosphate 50 mg 05/10/24 09:00 05/11/24 09:32 Sitagliptin Phosphate 50 Mg Tablet PO 50 mg DAILY SIM Administration Venlafaxine HCl 300 mg 05/10/24 09:00 05/11/24 09:33 Venlafaxine Hcl Xr 75 Mg Cap.Er.24h PO 300 mg DAILY SIM Administration Radiology Results: ITS Impressions Chest X-Ray 05/09/24 14:01 IMPRESSION: 1. No acute cardiopulmonary disease. Venous Doppler Study 05/10/24 09:19 IMPRESSION: 1. No deep venous thrombosis. Labs Labs: Laboratory Results - last 24 hr 05/10/24 05/10/24 05/11/24 16:52 20:22 08:39 WBC RBC Hgb Hct MCV MCH MCHC RDW Plt Count MPV Sodium Potassium Chloride Carbon Dioxide Anion Gap BUN Creatinine Estim Creat Clear Calc Estimated GFR Glucose POC Capillary Glucose 130 H 189 H 140 H Calcium Total Bilirubin AST ALT Alkaline Phosphatase Total Protein Albumin 05/11/24 05/11/24 05/11/24 09:36 09:39 12:16 WBC 13.0 H RBC 4.09 L Hgb 12.6 L Hct 37.4 L MCV 91.4 MCH 30.8 MCHC 33.7 RDW 13.0 Plt Count 207 MPV 11.1 H Sodium 141 Potassium 5.2 H Chloride 105 Carbon Dioxide 26 Anion Gap 10 BUN 26 H Creatinine 1.42 H Estim Creat Clear Calc 74 Estimated GFR 53 L Glucose 150 H POC Capillary Glucose 160 H Calcium 10.1 Total Bilirubin 0.4 AST 19 ALT 23 Alkaline Phosphatase 72 Total Protein 8.0 Albumin 4.3 Quality VTE Prophylaxis VTE prophylaxis: pharmacologic ordered Hospitalist MIPS Advance Care Plan I have confirmed that the patient's Advanced Care Plan is present, code status is documented, or surrogate decision maker is listed in patient medical record.: Yes Medication Reconciliation I have utilized all available resources to obtain, update and review the patie nts current medications (includes all prescriptions, OTC, herbals, cannabis, and nutritional supplements).: Yes
--- NOTE | 2024-05-11 16:46 | PC.NURSE ---
Per facility, no on site physician. Family states pt has not seen a primary in over a year. No records can be obtained at this time. Unknown who pcp is.
[2024-05-11] MEDS: SODIUM CHLORIDE 0.9% IV 1,000 ML 70 ML IV CONT (17:08)
[2024-05-11] MEDS: SODIUM POLYSTYRENE SULFONONATE 15 GM/60 ML BTL PO (17:10)
[2024-05-11] MEDS: SIMVASTATIN 20 MG TABLET 40 MG PO (17:11)
[2024-05-11 17:31] LABS: Glucose Point of Care 179 mg/dl (65-105)
[2024-05-11] MEDS: OMEGA 3 POLYUNSAT FATTY ACIDS 1 GM CAP PO (21:09)
[2024-05-11] MEDS: BENZTROPINE MESYLATE 1 MG TABLET PO (21:09)
[2024-05-11] MEDS: DESIPRAMINE HCL 25 MG TABLET 150 MG PO (21:09)
[2024-05-11] MEDS: SENNA/DOCUSATE SODIUM TABLET 2 TAB PO (21:10)
[2024-05-11 23:57] LABS: Glucose Point of Care 172 mg/dl (65-105)
[2024-05-12] VITALS (14 sets, daily range): BP systolic 125–132; BP diastolic 70–84; PULSE 67–85; RESP 16–20; TEMP 36.4–36.6; O2SAT 90–99
[2024-05-12] MEDS: IPRATROPIUM 0.5 MG/ALBUTEROL SULFATE 2.5 MG AMPUL.NEB 3 ML INHALATION ×4 (02:45→20:05)
[2024-05-12 05:50] LABS: Hematocrit 36.3 % (42.0-52.0); Mean Corpuscular HGB Conc 33.1 g/dl (32-36); Mean Corpuscular Hemoglobin 30.2 pg (26-34); Mean Corpuscular Volume 91.4 fl (80-100); Mean Platelet Volume 10.6 fl (7.4-10.4); Platelet Count Result 177 k/mm3 (150-375); Red Blood Count 3.97 M/mm3 (4.6-6.20); Red Cell Distribution Width 12.9 % (11.5-14.5); White Blood Count 12.4 K/mm3 (4.5-10.0)
[2024-05-12 06:02] LABS: Alanine Aminotransferase 53 U/L (6-50); Albumin Level 3.9 g/dL (3.5-5.1); Alkaline Phosphatase 63 U/L (38-126); Anion Gap 8 mmol/L (4-12); Aspartate Amino Transferase 43 U/L (17-59); Bilirubin,Total 0.3 mg/dL (0.2-1.3); Blood Urea Nitrogen 26 mg/dL (9-20); Calcium 9.4 mg/dL (8.4-10.2); Carbon Dioxide 28 mmol/L (22-30); Chloride 103 mmol/L (98-107); Estimated CRCL calculation 69 ml/min; Estimated Glomerular Filt Rate 50; Glucose 95 mg/dL (65-110); Potassium 4.1 mmol/L (3.4-5.0); Sodium 139 mmol/L (137-145)
[2024-05-12] MEDS: FLUTICASONE/SALMETEROL 115-21 MCG INHALER 1 PUFF 2 PUFF INHALATION ×2 (07:30→20:05)
[2024-05-12 08:56] LABS: Glucose Point of Care 108 mg/dl (65-105)
[2024-05-12] MEDS: oxyBUTYnin CHLORIDE XL 5 MG TAB.ER.24 15 MG PO (09:30)
[2024-05-12] MEDS: ASPIRIN 81 MG CHEWABLE TABLET PO (09:30)
[2024-05-12] MEDS: hydroCHLOROthiazide 12.5 MG CAPSULE PO (09:31)
[2024-05-12] MEDS: VENLAFAXINE HCL XR 75 MG CAP.ER.24H 300 MG PO (09:31)
[2024-05-12] MEDS: FOLIC ACID 1 MG TABLET PO (09:31)
[2024-05-12] MEDS: GABAPENTIN 300 MG CAPSULE PO ×2 (09:31→20:36)
[2024-05-12] MEDS: predniSONE 20 MG TABLET 40 MG PO (09:31)
[2024-05-12] MEDS: LITHIUM CARBONATE 300 MG CAPSULE PO ×2 (09:31→17:19)
[2024-05-12] MEDS: SITagliptin PHOSPHATE 50 MG TABLET PO (09:31)
[2024-05-12] MEDS: ARIPiprazole 5 MG TABLET PO (09:31)
[2024-05-12] MEDS: AZITHROMYCIN 250 MG TABLET PO (09:31)
[2024-05-12] MEDS: amLODIPine BESYLATE 5 MG TABLET PO (09:31)
[2024-05-12] MEDS: ENOXAPARIN 40 MG/0.4 ML SYRINGE SUB-Q ×2 (09:32→20:37)
[2024-05-12] MEDS: NICOTINE (*PBKC) 21 MG PATCH 1 PATCH TRANSDERM (09:32)
[2024-05-12] MEDS: SODIUM CHLORIDE 0.9% IV 1,000 ML 70 ML IV CONT (09:33)
[2024-05-12] MEDS: guaiFENesin 12 HR 600 MG TABCR 1200 MG PO ×2 (09:34→20:37)
--- NOTE | 2024-05-12 10:29 | PM.PNPUL ---
Progress Note: A&P Assessment and Plan (1) Acute exacerbation of COPD with asthma: Code(s): J44.1 - Chronic obstructive pulmonary disease with (acute) exacerbation Status: Acute Assessment and Plan: A 48-year-old male patient with a medical history of obstructive sleep apnea, COPD treated with maintenance bronchodilators, diabetes mellitus, and a psychiatric disorder, presented with an acute respiratory illness. His symptoms included cough, wheezing, and shortness of breath. Chest imaging showed clear lungs, and tests for common viral infections were negative. During physical examination, bilateral wheezing was noted. He is currently being treated for a COPD exacerbation, which is considered the most probable diagnosis. Although the patient reports some clinical improvement, bilateral wheezing persists. His oxygen flow was increased to 6 liters per minute due to hypoxemia, likely caused by dependent atelectasis, as he spends most of his time in bed. 05/11/24: Plan: Continue with the current treatment regimen, which includes antibiotics, intravenous steroids, nebulized short-acting bronchodilators, and DVT prophylaxis. Encourage the patient to get out of bed and sit in a chair, and use incentive spirometry. 05/12/2024: Overall the patient feels better. Tells me he is 80% back to his normal breathing status. Denies cough, phlegm or hemoptysis. Afebrile. White blood cell count 12.4, creatinine 1.48. Currently the patient is on 4 L nasal cannula saturations 98%. I decreased him to 3 L. Patient tells me he has a CPAP machine at home but was missing parts over a year ago and he has not used it in the last year. Plan: Patient with mild expiratory wheezes today. Continue treatment with prednisone 40 a day, day 4 steroids. I will discontinue DuoNebs and continue him on Advair 115-21 at 2 puffs b.i.d.. I will add Incruse. continue guaifenesin 1200 mg p.o. b.i.d.. Continue azithromycin day 4. Goal saturation 90-94%, wean oxygen as tolerated. Discussed with Dr. Martínez, will follow with you. (2) Obstructive sleep apnea on CPAP: Code(s): G47.33 - Obstructive sleep apnea (adult) (pediatric) Status: Chronic Assessment and Plan: Patient tells me he has a CPAP machine at home but was missing parts over a year ago and he has not used it in the last year. 05/12/24: Patient tells me cannot tolerate the BiPAP and did not wear this last night. plan: I will perform overnight oximetry on 4 L tonight. Subjective Date/time seen: 05/12/24 10:29 Interval history: 05/12/2024: Overall the patient feels better. Tells me he is 80% back to his normal breathing status. Denies cough, phlegm or hemoptysis. Afebrile. White blood cell count 12.4, creatinine 1.48. Currently the patient is on 4 L nasal cannula saturations 98%. I decreased him to 3 L. Patient tells me he has a CPAP machine at home but was missing parts over a year ago and he has not used it in the last year. Review of Systems Constitutional: Constitutional: Reports no additional constitutional complaints Eyes: Eyes: Reports no additional eye complaints ENT: Reports system reviewed and no additional complaints, except as documented Cardiovascular: Cardiovascular: Reports no additional cardiovascular complaints Respiratory: Respiratory: Reports no additional respiratory complaints Gastrointestinal: Gastrointestinal: Reports no additional gastrointestinal complaints Musculoskeletal: Musculoskeletal: Reports no additional musculoskeletal complaints Neurologic: Reports system reviewed and no additional complaints, except as documented Psychiatric: Psychiatric: Reports no additional psychiatric complaints Endocrine: Endocrine: Reports no additional endocrine complaints Hematologic/Lymphatic: Hematologic/Lymphatic: Reports no additional hematologic/lymphatic complaints Allergic/Immunologic: Allergic/Immunologic: Reports no additional allergic/immunologic complaints Exam Const: General: cooperative, healthy appearing and comfortable Orientation/consciousness: oriented to person, oriented to place and oriented to time HENMT: Head: normal to inspection Ears: hearing grossly normal bilaterally Eyes: General: appearance normal, both eyes and all related structures Neck: Neck: normal visual inspection Chest: Chest palpation & inspection: normal inspection of the chest Resp: Effort & Inspection: normal respiratory effort and able to speak in complete sentences Auscultation: no crackles, no rales, no rhonchi, wheezes and lung sounds not diminished Other: Mild expiratory wheezes. Cardio: Jugular venous distension: no JVD GI: Inspection: normal to inspection GI Palp: No abdominal tenderness Skin: General skin exam: normal color Neuro: General: oriented to person, oriented to place and oriented to time Extrem: General: normal to inspection Other: Improved edema. Psych: Appearance: grossly normal Objective Data Vital Signs Vital Signs: Vital Signs - 24 hr 05/11/24 14:00 05/11/24 14:53 05/11/24 15:01 Temperature 36.5 C Pulse Rate 81 94 91 Respiratory Rate 18 20 20 Blood Pressure 125/77 Pulse Oximetry 96 Oxygen Delivery Oxygen Flow Rate 05/11/24 19:45 05/11/24 19:47 05/11/24 19:54 Temperature Pulse Rate 91 89 Respiratory Rate 20 20 Blood Pressure Pulse Oximetry 95 Oxygen Delivery Nasal Cannula Oxygen Flow Rate 4 05/11/24 21:23 05/12/24 02:45 05/12/24 02:52 Temperature 36.8 C Pulse Rate 90 73 72 Respiratory Rate 18 20 20 Blood Pressure 125/88 Pulse Oximetry 97 Oxygen Delivery Oxygen Flow Rate 05/12/24 04:23 05/12/24 07:31 05/12/24 07:31 Temperature 36.6 C Pulse Rate 68 67 Respiratory Rate 16 20 Blood Pressure 125/83 Pulse Oximetry 98 90 Oxygen Delivery Nasal Cannula Oxygen Flow Rate 4 05/12/24 07:46 Temperature Pulse Rate 68 Respiratory Rate 20 Blood Pressure Pulse Oximetry Oxygen Delivery Oxygen Flow Rate Intake/Output Intake/Output: Intake & Output 05/09/24 05/10/24 05/11/24 05/12/24 23:59 23:59 23:59 23:59 Intake Total 350 2779 268 3450 Output Total 1975 900 Balance 350 -755 -200 1590 Meds/Results Medications: Active Medications Generic Name Dose Route Start Last Admin Trade Name Freq PRN Reason Stop Dose Admin Acetaminophen 650 mg 05/09/24 16:32 Acetaminophen 325 Mg Tablet PO Q4H PRN Mild Pain (1-3) or Fever Albuterol/Ipratropium 3 ml 05/09/24 20:00 05/12/24 07:30 Ipratropium 0.5 Mg/Albuterol Sulfate 2.5 Mg Ampul.Neb 3 Ml INHALATION 3 ml Q6HRT SIM Administration Amlodipine Besylate 5 mg 05/10/24 09:00 05/12/24 09:31 Amlodipine Besylate 5 Mg Tablet PO 5 mg DAILY SIM Administration Aripiprazole 5 mg 05/10/24 09:00 05/12/24 09:31 Aripiprazole 5 Mg Tablet PO 5 mg DAILY SIM Administration Aspirin 81 mg 05/10/24 09:00 05/12/24 09:30 Aspirin 81 Mg Chewable Tablet PO 81 mg DAILY SIM Administration Azithromycin 250 mg 05/10/24 09:00 05/12/24 09:31 Azithromycin 250 Mg Tablet PO 05/13/24 09:01 250 mg DAILY SIM Administration Benztropine Mesylate 1 mg 05/09/24 22:05 05/11/24 21:09 Benztropine Mesylate 1 Mg Tablet PO 1 mg HS SIM Administration Desipramine HCl 150 mg 05/09/24 22:05 05/11/24 21:09 Desipramine Hcl 25 Mg Tablet PO 150 mg HS SIM Administration Dextrose 12.5 gm 05/09/24 21:53 Dextrose 50% 25 Gm/50 Ml Syringe IV PUSH PRN PRN Hypoglycemia Protocol Diclofenac Sodium 1 applic 05/10/24 09:00 05/12/24 09:32 Diclofenac Sodium 1% 100 Gm Gel (*Bkc) TOPICAL Not Given BID SIM Enoxaparin Sodium 40 mg 05/10/24 21:00 05/12/24 09:32 Enoxaparin 40 Mg/0.4 Ml Syringe SUB-Q 40 mg Q12HR SIM Administration Fish Oil 1 gm 05/09/24 22:10 05/11/24 21:09 [place] 3 Polyunsat Fatty Acids 1 Gm Cap PO 1 gm HS SIM Administration Folic Acid 1 mg 05/10/24 09:00 05/12/24 09:31 Folic Acid 1 Mg Tablet PO 1 mg DAILY SIM Administration Gabapentin 300 mg 05/09/24 21:55 05/12/24 09:31 Gabapentin 300 Mg Capsule PO 300 mg Q12HR SIM Administration Glucagon 1 mg 05/09/24 21:53 Glucagon For Inj 1 Mg Vial IM PRN PRN Hypoglycemia Protocol Glucose 15 gm 05/09/24 21:53 Glucose Oral Gel 15 Gm Of Glucse In 37.5 Gm Tube PO PRN PRN Hypoglycemia Protocol Guaifenesin 1,200 mg 05/10/24 09:00 05/12/24 09:34 Guaifenesin 12 Hr 600 Mg Tabcr PO 1,200 mg Q12HR SIM Administration Hydrochlorothiazide 12.5 mg 05/10/24 09:00 05/12/24 09:31 Hydrochlorothiazide 12.5 Mg Capsule PO 12.5 mg DAILY SIM Administration Dextrose 1,000 mls @ 100 mls/hr 05/09/24 21:53 Dextrose 5% 1,000 Ml IVPB PRN PRN Hypoglycemia Protocol Sodium Chloride 1,000 mls @ 70 mls/hr 05/11/24 14:35 05/12/24 09:33 Normal Saline Iv IV CONT 70 mls/hr .[id number] SIM Administration Insulin Aspart 1 - 3 units 05/09/24 22:10 05/12/24 05:39 Insulin Aspart (*Bkc) 100 Units/Ml SUB-Q Not Given HS SIM Protocol Insulin Aspart 3 - 6 units 05/10/24 08:00 05/12/24 09:32 Insulin Aspart (*Bkc) 100 Units/Ml SUB-Q Not Given TIDWM SIM Protocol [place] Carbonate 300 mg 05/09/24 22:10 05/12/24 09:31 [place] Carbonate 300 Mg Capsule PO 300 mg BID SIM Administration Losartan Potassium 50 mg 05/10/24 09:00 05/11/24 09:32 Losartan Potassium 50 Mg Tablet PO 50 mg DAILY SIM Administration Nicotine 1 patch 05/10/24 09:00 05/12/24 09:32 Nicotine (*Pbkc) 21 Mg Patch TRANSDERM 1 patch DAILY SIM Administration Oxybutynin Chloride 15 mg 05/10/24 09:00 05/12/24 09:30 Oxybutynin Chloride Xl 5 Mg Tab.Er.24 PO 15 mg DAILY SIM Administration Perflutren Lipid Microsphere 0 ml 05/09/24 23:31 Perflutren Lipid Microspheres 1.5 Ml Vial Diluted To 10 Ml Total Volume IV PUSH 05/12/24 23:31 ONCE PRN adequate visualization Protocol Prednisone 40 mg 05/12/24 08:00 05/12/24 09:31 Prednisone 20 Mg Tablet PO 05/15/24 07:59 40 mg DAILY@0800 SIM Administration Fluticasone/Salmeterol 2 puff 05/10/24 08:00 05/12/24 07:30 Fluticasone/Salmeterol 115-21 Mcg Inhaler 1 Puff INHALATION 2 puff Q12HRT SIM Administration Senna/Docusate Sodium 2 tab 05/09/24 22:10 05/11/24 21:10 Senna/Docusate Sodium Tablet PO 2 tab HS SIM Administration Simvastatin 40 mg 05/09/24 22:10 05/11/24 17:11 Simvastatin 20 Mg Tablet PO 40 mg QPM SIM Administration Sitagliptin Phosphate 50 mg 05/10/24 09:00 05/12/24 09:31 Sitagliptin Phosphate 50 Mg Tablet PO 50 mg DAILY SIM Administration Venlafaxine HCl 300 mg 05/10/24 09:00 05/12/24 09:31 Venlafaxine Hcl Xr 75 Mg Cap.Er.24h PO 300 mg DAILY SIM Administration Radiology Results: ITS Impressions Chest X-Ray 05/09/24 14:01 IMPRESSION: 1. No acute cardiopulmonary disease. Venous Doppler Study 05/10/24 09:19 IMPRESSION: 1. No deep venous thrombosis. Labs Labs: Laboratory Results - last 24 hr 05/11/24 05/11/24 05/11/24 09:39 12:16 16:57 WBC 13.0 H RBC 4.09 L Hgb 12.6 L Hct 37.4 L MCV 91.4 MCH 30.8 MCHC 33.7 RDW 13.0 Plt Count 207 MPV 11.1 H Sodium Potassium Chloride Carbon Dioxide Anion Gap BUN Creatinine Estim Creat Clear Calc Estimated GFR Glucose POC Capillary Glucose 160 H 179 H Calcium Total Bilirubin AST ALT Alkaline Phosphatase Total Protein Albumin 05/11/24 05/12/24 05/12/24 21:25 05:24 08:41 WBC 12.4 H RBC 3.97 L Hgb 12.0 L Hct 36.3 L MCV 91.4 MCH 30.2 MCHC 33.1 RDW 12.9 Plt Count 177 MPV 10.6 H Sodium 139 Potassium 4.1 Chloride 103 Carbon Dioxide 28 Anion Gap 8 BUN 26 H Creatinine 1.48 H Estim Creat Clear Calc 69 Estimated GFR 50 L Glucose 95 POC Capillary Glucose 172 H 108 H Calcium 9.4 Total Bilirubin 0.3 AST 43 ALT 53 H Alkaline Phosphatase 63 Total Protein 7.0 Albumin 3.9
--- NOTE | 2024-05-12 10:48 | P.PNIM_ITS ---
Progress Note: A&P Assessment and Plan (1) Acute hypoxic on chronic hypercapnic respiratory failure: Code(s): J96.01 - Acute respiratory failure with hypoxia; J96.12 - Chronic respiratory failure with hypercapnia Status: Acute Assessment and Plan: * Consult pulmonology * Supplemental oxygen currently at 6 L high-flow * Bronchodilators * Discontinue IV steroids and started prednisone 40 mg p.o. for 3 days * Continue azithromycin * Acapella/incentive spirometry * Repeat ABG this morning showing pH of 7.364, pCO2 of 49, PO2 of 81.5 and HC03 of 27.3. * Appreciate pulmonology as recommendations for further treatment. * CPT ordered (2) Acute exacerbation of COPD with asthma: Code(s): J44.1 - Chronic obstructive pulmonary disease with (acute) exacerbation Status: Acute Assessment and Plan: * See 1. (3) Bilateral lower extremity edema: Code(s): R60.0 - Localized edema Status: Acute Assessment and Plan: * Suspect chronic in nature * Venous Dopplers ordered to rule out DVT. (4) Renal failure: Code(s): N19 - Unspecified kidney failure Status: Acute Assessment and Plan: * Started gentle fluid resuscitation * Hold losartan * Avoid nephrotoxic drugs * Monitor BUN and creatinine (5) Obstructive sleep apnea on CPAP: Code(s): G47.33 - Obstructive sleep apnea (adult) (pediatric) Status: Chronic Assessment and Plan: * BiPAP at HS (6) Type 2 diabetes mellitus: Code(s): E11.9 - Type 2 diabetes mellitus without complications Status: Acute Assessment and Plan: * Glucose checks a.c. and HS and p.r.n. * Continue moderate dose sliding scale insulin * Hypoglycemic protocol * A1c noted to be 5.0 * Diabetic diet * Continue Januvia (7) Hypertension: Code(s): I10 - Essential (primary) hypertension Status: Chronic Assessment and Plan: * Currently running 1 teens to 130s over 60s to 80s * Continue current medications of amlodipine 5 mg daily, hydrochlorothiazide 12.5 mg daily * Continue to trend and monitor. (8) Tobacco dependence: Code(s): F17.200 - Nicotine dependence, unspecified, uncomplicated Status: Chronic Assessment and Plan: * Nicotine Patch daily. * Eighty pack year smoker * Counseling performed for 7-10 minutes. (9) Hyperkalemia: Code(s): E87.5 - Hyperkalemia Status: Acute Assessment and Plan: * Acute as per morning labs with potassium 5.4. Patient received a single L of IV fluids and we will recheck potassium this afternoon. * Asymptomatic (10) Self-care deficit: Code(s): Z78.9 - Other specified health status Status: Acute Assessment and Plan: * Care coordination consulted for possible new placement upon discharge. * PT OT eval ordered * Patient presented very disheveled and poorly kempt. Suspect given his current degree of confusion that he is unable to adequately care for himself. Subjective Date/time seen: 05/12/24 10:48 Interval history: Patient creatinine is increased from 1.42-1.48. Increased NSS from 70 mL/hr to 100 mL/hr. Discussed with Dr. Tripathi. Patient reports that his CPAP has been broken. Overnight oximetry with a 4L of O2 will be performed. Review of Systems Review of Systems: 12 systems were reviewed and are negativ e except for as per HPI. All systems reviewed & are unremarkable except as noted in HPI and below Exam Narrative: General: Really can not, chronically ill-appearing male lying left-sided in bed at this time in no acute distress. HEENT: PERRL, EOMI. Sclera anicteric. Moist mucous membranes. Neck: Supple. Exam limited due to neck circumference. No JVD or bruits. Respiratory: Respirations are nonlabored patient has coarse rhonchi throughout all lobes worse on expiration. There is a prolonged expiratory phase. Cardiovascular: Regular rate and rhythm with S1-S2. Gastrointestinal: Abdomen is soft, obese, rotund, nontender, and nondistended with positive bowel sounds. Skin: Warm and dry. Chronic skin changes and erythema of the lower legs with scattered excoriations. No acute infection noted. Extremities: No cyanosis or clubbing. Chronic pitting and nonpitting edema of the lower extremities. No palpable knots or cords. Negative Chuck sign bilaterally. Neurological: Alert. Oriented to self and year only. Cranial nerves 2-12 are grossly intact. No gross focal deficits to casual conversation. Psychiatric: Cooperative with depressed mood and flat affect. Objective Data Vital Signs Vital Signs: Vital Signs - 24 hr 05/11/24 14:00 05/11/24 14:53 05/11/24 15:01 Temperature 97.7 F Pulse Rate 81 94 91 Respiratory Rate 18 20 20 Blood Pressure 125/77 Pulse Oximetry 96 Oxygen Delivery Oxygen Flow Rate 05/11/24 19:45 05/11/24 19:47 05/11/24 19:54 Temperature Pulse Rate 91 89 Respiratory Rate 20 20 Blood Pressure Pulse Oximetry 95 Oxygen Delivery Nasal Cannula Oxygen Flow Rate 4 05/11/24 21:23 05/12/24 02:45 05/12/24 02:52 Temperature 98.2 F Pulse Rate 90 73 72 Respiratory Rate 18 20 20 Blood Pressure 125/88 Pulse Oximetry 97 Oxygen Delivery Oxygen Flow Rate 05/12/24 04:23 05/12/24 07:31 05/12/24 07:31 Temperature 97.9 F Pulse Rate 68 67 Respiratory Rate 16 20 Blood Pressure 125/83 Pulse Oximetry 98 90 Oxygen Delivery Nasal Cannula Oxygen Flow Rate 4 05/12/24 07:46 Temperature Pulse Rate 68 Respiratory Rate 20 Blood Pressure Pulse Oximetry Oxygen Delivery Oxygen Flow Rate Intake/Output Intake/Output: Intake & Output 05/09/24 05/10/24 05/11/24 05/12/24 23:59 23:59 23:59 23:59 Intake Total 350 0034 723 7999 Output Total 1975 900 Balance 350 -755 -200 1590 Meds/Results Medications: Active Medications Generic Name Dose Route Start Last Admin Trade Name Heladioq PRN Reason Stop Dose Admin Acetaminophen 650 mg 05/09/24 16:32 Acetaminophen 325 Mg Tablet PO Q4H PRN Mild Pain (1-3) or Fever Albuterol/Ipratropium 3 ml 05/09/24 20:00 05/12/24 07:30 Ipratropium 0.5 Mg/Albuterol Sulfate 2.5 Mg Ampul.Neb 3 Ml INHALATION 3 ml Q6HRT SIM Administration Amlodipine Besylate 5 mg 05/10/24 09:00 05/12/24 09:31 Amlodipine Besylate 5 Mg Tablet PO 5 mg DAILY SIM Administration Aripiprazole 5 mg 05/10/24 09:00 05/12/24 09:31 Aripiprazole 5 Mg Tablet PO 5 mg DAILY SIM Administration Aspirin 81 mg 05/10/24 09:00 05/12/24 09:30 Aspirin 81 Mg Chewable Tablet PO 81 mg DAILY SIM Administration Azithromycin 250 mg 05/10/24 09:00 05/12/24 09:31 Azithromycin 250 Mg Tablet PO 05/13/24 09:01 250 mg DAILY SIM Administration Benztropine Mesylate 1 mg 05/09/24 22:05 05/11/24 21:09 Benztropine Mesylate 1 Mg Tablet PO 1 mg HS SIM Administration Desipramine HCl 150 mg 05/09/24 22:05 05/11/24 21:09 Desipramine Hcl 25 Mg Tablet PO 150 mg HS SIM Administration Dextrose 12.5 gm 05/09/24 21:53 Dextrose 50% 25 Gm/50 Ml Syringe IV PUSH PRN PRN Hypoglycemia Protocol Diclofenac Sodium 1 applic 05/10/24 09:00 05/12/24 09:32 Diclofenac Sodium 1% 100 Gm Gel (*Bkc) TOPICAL Not Given BID SIM Enoxaparin Sodium 40 mg 05/10/24 21:00 05/12/24 09:32 Enoxaparin 40 Mg/0.4 Ml Syringe SUB-Q 40 mg Q12HR SIM Administration Fish Oil 1 gm 05/09/24 22:10 05/11/24 21:09 [place] 3 Polyunsat Fatty Acids 1 Gm Cap PO 1 gm HS SIM Administration Folic Acid 1 mg 05/10/24 09:00 05/12/24 09:31 Folic Acid 1 Mg Tablet PO 1 mg DAILY SIM Administration Gabapentin 300 mg 05/09/24 21:55 05/12/24 09:31 Gabapentin 300 Mg Capsule PO 300 mg Q12HR SIM Administration Glucagon 1 mg 05/09/24 21:53 Glucagon For Inj 1 Mg Vial IM PRN PRN Hypoglycemia Protocol Glucose 15 gm 05/09/24 21:53 Glucose Oral Gel 15 Gm Of Glucse In 37.5 Gm Tube PO PRN PRN Hypoglycemia Protocol Guaifenesin 1,200 mg 05/10/24 09:00 05/12/24 09:34 Guaifenesin 12 Hr 600 Mg Tabcr PO 1,200 mg Q12HR SIM Administration Hydrochlorothiazide 12.5 mg 05/10/24 09:00 05/12/24 09:31 Hydrochlorothiazide 12.5 Mg Capsule PO 12.5 mg DAILY SIM Administration Dextrose 1,000 mls @ 100 mls/hr 05/09/24 21:53 Dextrose 5% 1,000 Ml IVPB PRN PRN Hypoglycemia Protocol Sodium Chloride 1,000 mls @ 100 mls/hr 05/11/24 14:35 05/12/24 09:33 Normal Saline Iv IV CONT 70 mls/hr .Q10H SIM Administration Insulin Aspart 1 - 3 units 05/09/24 22:10 05/12/24 05:39 Insulin Aspart (*Bkc) 100 Units/Ml SUB-Q Not Given HS SIM Protocol Insulin Aspart 3 - 6 units 05/10/24 08:00 05/12/24 09:32 Insulin Aspart (*Bkc) 100 Units/Ml SUB-Q Not Given TIDWM SIM Protocol [place] Carbonate 300 mg 05/09/24 22:10 05/12/24 09:31 [place] Carbonate 300 Mg Capsule PO 300 mg BID SIM Administration Losartan Potassium 50 mg 05/10/24 09:00 05/11/24 09:32 Losartan Potassium 50 Mg Tablet PO 50 mg DAILY SIM Administration Nicotine 1 patch 05/10/24 09:00 05/12/24 09:32 Nicotine (*Pbkc) 21 Mg Patch TRANSDERM 1 patch DAILY SIM Administration Oxybutynin Chloride 15 mg 05/10/24 09:00 05/12/24 09:30 Oxybutynin Chloride Xl 5 Mg Tab.Er.24 PO 15 mg DAILY SIM Administration Perflutren Lipid Microsphere 0 ml 05/09/24 23:31 Perflutren Lipid Microspheres 1.5 Ml Vial Diluted To 10 Ml Total Volume IV PUSH 05/12/24 23:31 ONCE PRN adequate visualization Protocol Prednisone 40 mg 05/12/24 08:00 05/12/24 09:31 Prednisone 20 Mg Tablet PO 05/15/24 07:59 40 mg DAILY@0800 SIM Administration Fluticasone/Salmeterol 2 puff 05/10/24 08:00 05/12/24 07:30 Fluticasone/Salmeterol 115-21 Mcg Inhaler 1 Puff INHALATION 2 puff Q12HRT SIM Administration Senna/Docusate Sodium 2 tab 05/09/24 22:10 05/11/24 21:10 Senna/Docusate Sodium Tablet PO 2 tab HS SIM Administration Simvastatin 40 mg 05/09/24 22:10 05/11/24 17:11 Simvastatin 20 Mg Tablet PO 40 mg QPM SIM Administration Sitagliptin Phosphate 50 mg 05/10/24 09:00 05/12/24 09:31 Sitagliptin Phosphate 50 Mg Tablet PO 50 mg DAILY SIM Administration Umeclidinium [place] 1 puff 05/12/24 10:35 Umeclidinium [place] 62.5 Mcg Ellipta INHALATION DAILYRT SIM Venlafaxine HCl 300 mg 05/10/24 09:00 05/12/24 09:31 Venlafaxine Hcl Xr 75 Mg Cap.Er.24h PO 300 mg DAILY SIM Administration Radiology Results: ITS Impressions Chest X-Ray 05/09/24 14:01 IMPRESSION: 1. No acute cardiopulmonary disease. Venous Doppler Study 05/10/24 09:19 IMPRESSION: 1. No deep venous thrombosis. Labs Labs: Laboratory Results - last 24 hr 05/11/24 05/11/24 05/11/24 12:16 16:57 21:25 WBC RBC Hgb Hct MCV MCH MCHC RDW Plt Count MPV Sodium Potassium Chloride Carbon Dioxide Anion Gap BUN Creatinine Estim Creat Clear Calc Estimated GFR Glucose POC Capillary Glucose 160 H 179 H 172 H Calcium Total Bilirubin AST ALT Alkaline Phosphatase Total Protein Albumin 05/12/24 05/12/24 05:24 08:41 WBC 12.4 H RBC 3.97 L Hgb 12.0 L Hct 36.3 L MCV 91.4 MCH 30.2 MCHC 33.1 RDW 12.9 Plt Count 177 MPV 10.6 H Sodium 139 Potassium 4.1 Chloride 103 Carbon Dioxide 28 Anion Gap 8 BUN 26 H Creatinine 1.48 H Estim Creat Clear Calc 69 Estimated GFR 50 L Glucose 95 POC Capillary Glucose 108 H Calcium 9.4 Total Bilirubin 0.3 AST 43 ALT 53 H Alkaline Phosphatase 63 Total Protein 7.0 Albumin 3.9 Quality VTE Prophylaxis VTE prophylaxis: pharmacologic ordered Hospitalist [facility] Advance Care Plan I have confirmed that the patient's Advanced Care Plan is present, code status is documented, or surrogate decision maker is listed in patient medical record.: Yes Medication Reconciliation I have utilized all available resources to obtain, update and review the patients current medications (includes all prescriptions, OTC, herbals, cannabis, and nutritional supplements).: Yes
[2024-05-12 12:14] LABS: Glucose Point of Care 111 mg/dl (65-105)
[2024-05-12] MEDS: UMECLIDINIUM BROMIDE 62.5 MCG ELLIPTA 1 PUFF INHALATION (12:45)
[2024-05-12 16:45] LABS: Glucose Point of Care 248 mg/dl (65-105)
[2024-05-12] MEDS: SIMVASTATIN 20 MG TABLET 40 MG PO (17:19)
[2024-05-12] MEDS: DICLOFENAC SODIUM 1% 100 GM GEL (*BKC) 1 APPLIC TOPICAL (17:19)
[2024-05-12] MEDS: INSULIN ASPART (*BKC) 100 UNITS/ML SUB-Q (17:20)
[2024-05-12] MEDS: DESIPRAMINE HCL 25 MG TABLET 150 MG PO (20:36)
[2024-05-12] MEDS: BENZTROPINE MESYLATE 1 MG TABLET PO (20:37)
[2024-05-12] MEDS: SENNA/DOCUSATE SODIUM TABLET 2 TAB PO (20:37)
[2024-05-12] MEDS: polyethylene glycoL 3350 17 GM POWD.PACK PO (20:37)
[2024-05-12] MEDS: OMEGA 3 POLYUNSAT FATTY ACIDS 1 GM CAP PO (20:37)
[2024-05-12] MEDS: SODIUM CHLORIDE 0.9% IV 1,000 ML 100 ML IV CONT (20:38)
[2024-05-12 23:15] LABS: Glucose Point of Care 108 mg/dl (65-105)
[2024-05-13] VITALS (9 sets, daily range): BP systolic 118–120; BP diastolic 76–81; PULSE 80–112; RESP 18–20; TEMP 36.1–36.6; O2SAT 93–97
--- NOTE | 2024-05-13 02:15 | PCRCNOTE ---
Patient did not receive 0200 updraft treatment due to being on an overnight oximetry study. Treatment to resume at 0800.
[2024-05-13 05:42] LABS: Hematocrit 36.9 % (42.0-52.0); Hemoglobin 12.2 g/dL (14.0-18.0); Mean Corpuscular HGB Conc 33.1 g/dl (32-36); Mean Corpuscular Hemoglobin 29.9 pg (26-34); Mean Corpuscular Volume 90.4 fl (80-100); Mean Platelet Volume 10.2 fl (7.4-10.4); Platelet Count Result 171 k/mm3 (150-375); Red Blood Count 4.08 M/mm3 (4.6-6.20); Red Cell Distribution Width 12.7 % (11.5-14.5); White Blood Count 12.2 K/mm3 (4.5-10.0)
[2024-05-13 05:54] LABS: Alanine Aminotransferase 87 U/L (6-50); Albumin Level 3.7 g/dL (3.5-5.1); Alkaline Phosphatase 67 U/L (38-126); Anion Gap 7 mmol/L (4-12); Aspartate Amino Transferase 54 U/L (17-59); Bilirubin,Total 0.4 mg/dL (0.2-1.3); Blood Urea Nitrogen 22 mg/dL (9-20); Calcium 9.1 mg/dL (8.4-10.2); Carbon Dioxide 29 mmol/L (22-30); Chloride 103 mmol/L (98-107); Estimated CRCL calculation 79 ml/min; Estimated Glomerular Filt Rate 59; Glucose 111 mg/dL (65-110); Potassium 3.9 mmol/L (3.4-5.0); Sodium 139 mmol/L (137-145)
[2024-05-13] MEDS: SODIUM CHLORIDE 0.9% IV 1,000 ML 100 ML IV CONT (06:04)
[2024-05-13 07:53] LABS: Glucose Point of Care 105 mg/dl (65-105)
[2024-05-13] MEDS: FLUTICASONE/SALMETEROL 115-21 MCG INHALER 1 PUFF 2 PUFF INHALATION ×2 (08:22→21:05)
[2024-05-13] MEDS: UMECLIDINIUM BROMIDE 62.5 MCG ELLIPTA 1 PUFF INHALATION (08:23)
--- NOTE | 2024-05-13 08:26 | P.PNIM_ITS ---
Progress Note: A&P Assessment and Plan (1) Acute hypoxic on chronic hypercapnic respiratory failure: Code(s): J96.01 - Acute respiratory failure with hypoxia; J96.12 - Chronic respiratory failure with hypercapnia Status: Acute Assessment and Plan: * Consult pulmonology * Supplemental oxygen currently at 6 L high-flow * Bronchodilators * Discontinue IV steroids and started prednisone 40 mg p.o. for 3 days * Continue azithromycin * Acapella/incentive spirometry * Repeat ABG this morning showing pH of 7.364, pCO2 of 49, PO2 of 81.5 and HC03 of 27.3. * Appreciate pulmonology as recommendations for further treatment. * CPT ordered * Tonight patient will undergo oximetry in room air to determine supplement oxygen at night * Possible discharge tomorrow (2) Acute exacerbation of COPD with asthma: Code(s): J44.1 - Chronic obstructive pulmonary disease with (acute) exacerbation Status: Acute Assessment and Plan: * See 1. (3) Bilateral lower extremity edema: Code(s): R60.0 - Localized edema Status: Acute Assessment and Plan: * Suspect chronic in nature * Venous Dopplers ordered to rule out DVT. (4) Renal failure: Code(s): N19 - Unspecified kidney failure Status: Acute Assessment and Plan: * Discontinue gentle fluid resuscitation * Advised oral fluid intake * Hold losartan * Avoid nephrotoxic drugs * Monitor BUN and creatinine (5) Obstructive sleep apnea on CPAP: Code(s): G47.33 - Obstructive sleep apnea (adult) (pediatric) Status: Chronic Assessment and Plan: * BiPAP at HS (6) Type 2 diabetes mellitus: Code(s): E11.9 - Type 2 diabetes mellitus without complications Status: Acute Assessment and Plan: * Glucose checks a.c. and HS and p.r.n. * Continue moderate dose sliding scale insulin * Hypoglycemic protocol * A1c noted to be 5.0 * Diabetic diet * Continue Januvia (7) Hypertension: Code(s): I10 - Essential (primary) hypertension Status: Chronic Assessment and Plan: * Currently running 1 teens to 130s over 60s to 80s * Continue current medications of amlodipine 5 mg daily, hydrochlorothiazide 12.5 mg daily * Continue to trend and monitor. (8) Tobacco dependence: Code(s): F17.200 - Nicotine dependence, unspecified, uncomplicated Status: Chronic Assessment and Plan: * Nicotine Patch daily. * Eighty pack year smoker * Counseling performed for 7-10 minutes. (9) Hyperkalemia: Code(s): E87.5 - Hyperkalemia Status: Acute Assessment and Plan: * Acute as per morning labs with potassium 5.4. Patient received a single L of IV fluids and we will recheck potassium this afternoon. * Asymptomatic (10) Self-care deficit: Code(s): Z78.9 - Other specified health status Status: Acute Assessment and Plan: * Care coordination consulted for possible new placement upon discharge. * PT OT eval ordered * Patient presented very disheveled and poorly kempt. Suspect given his current degree of confusion that he is unable to adequately care for himself. Subjective Date/time seen: 05/13/24 08:26 Interval history: Patient is currently doing well. 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 Patient will undergo oximetry in room air tonight. Will discontinue NSS at 100 mL/hr. His creatinine is getting better and advised to encourage oral fluid intake. Will continue Advair and paint department supervisor added Incruse.Pulmonology overnight oximetry on 4 L tonight.Had a long conversation with his sister. Review of Systems Review of Systems: 12 systems were reviewed and are negativ e except for as per HPI. All systems reviewed & are unremarkable except as noted in HPI and below Exam Narrative: General: Really can not, chronically ill-appearing male lying left-sided in bed at this time in no acute distress. HEENT: PERRL, EOMI. Sclera anicteric. Moist mucous membranes. Neck: Supple. Exam limited due to neck circumference. No JVD or bruits. Respiratory: Respirations are nonlabored patient has coarse rhonchi throughout all lobes worse on expiration. There is a prolonged expiratory phase. Cardiovascular: Regular rate and rhythm with S1-S2. Gastrointestinal: Abdomen is soft, obese, rotund, nontender, and nondistended with positive bowel sounds. Skin: Warm and dry. Chronic skin changes and erythema of the lower legs with scattered excoriations. No acute infection noted. Extremities: No cyanosis or clubbing. Chronic pitting and nonpitting edema of the lower extremities. No palpable knots or cords. Negative Chuck sign bilaterally. Neurological: Alert. Oriented to self and year only. Cranial nerves 2-12 are grossly intact. No gross focal deficits to casual conversation. Psychiatric: Cooperative with depressed mood and flat affect. Objective Data Vital Signs Vital Signs: Vital Signs - 24 hr 05/12/24 09:32 05/12/24 13:50 05/12/24 13:50 Temperature Pulse Rate 82 82 Respiratory Rate 20 20 Blood Pressure Pulse Oximetry 95 Oxygen Delivery Nasal Cannula Nasal Cannula Oxygen Flow Rate 4 3 Fraction of Inspired Oxygen 05/12/24 14:00 05/12/24 14:01 05/12/24 20:00 Temperature 97.9 F Pulse Rate 76 83 Respiratory Rate 19 20 Blood Pressure 132/70 Pulse Oximetry 96 94 Oxygen Delivery Nasal Cannula Oxygen Flow Rate 4 Fraction of Inspired Oxygen 05/12/24 20:05 05/12/24 20:11 05/12/24 20:17 Temperature Pulse Rate 82 82 82 Respiratory Rate 20 20 Blood Pressure Pulse Oximetry 99 Oxygen Delivery Nasal Cannula Oxygen Flow Rate 3 Fraction of Inspired Oxygen 05/12/24 21:47 05/12/24 22:50 05/13/24 04:02 Temperature 97.5 F L 98 F Pulse Rate 85 80 Respiratory Rate 20 18 Blood Pressure 126/84 118/81 Pulse Oximetry 95 99 96 Oxygen Delivery Nasal Cannula Oxygen Flow Rate 4 Fraction of Inspired Oxygen 05/13/24 08:22 05/13/24 08:22 Temperature Pulse Rate 80 Respiratory Rate 20 Blood Pressure Pulse Oximetry 97 Oxygen Delivery Nasal Cannula Oxygen Flow Rate 4 Fraction of Inspired Oxygen 36 Intake/Output Intake/Output: Intake & Output 05/10/24 05/11/24 05/12/24 05/13/24 23:59 23:59 23:59 23:59 Intake Total 0049 300 7005.3 1723.3 Output Total 1975 900 Balance -755 -200 4256.3 1723.3 Meds/Results Medications: Active Medications Generic Name Dose Route Start Last Admin Trade Name Freq PRN Reason Stop Dose Admin Acetaminophen 650 mg 05/09/24 16:32 Acetaminophen 325 Mg Tablet PO Q4H PRN Mild Pain (1-3) or Fever Amlodipine Besylate 5 mg 05/10/24 09:00 05/12/24 09:31 Amlodipine Besylate 5 Mg Tablet PO 5 mg DAILY SIM Administration Aripiprazole 5 mg 05/10/24 09:00 05/12/24 09:31 Aripiprazole 5 Mg Tablet PO 5 mg DAILY SIM Administration Aspirin 81 mg 05/10/24 09:00 05/12/24 09:30 Aspirin 81 Mg Chewable Tablet PO 81 mg DAILY SIM Administration Azithromycin 250 mg 05/10/24 09:00 05/12/24 09:31 Azithromycin 250 Mg Tablet PO 05/13/24 09:01 250 mg DAILY SIM Administration Benztropine Mesylate 1 mg 05/09/24 22:05 05/12/24 20:37 Benztropine Mesylate 1 Mg Tablet PO 1 mg HS SIM Administration Desipramine HCl 150 mg 05/09/24 22:05 05/12/24 20:36 Desipramine Hcl 25 Mg Tablet PO 150 mg HS SIM Administration Dextrose 12.5 gm 05/09/24 21:53 Dextrose 50% 25 Gm/50 Ml Syringe IV PUSH PRN PRN Hypoglycemia Protocol Diclofenac Sodium 1 applic 05/10/24 09:00 05/12/24 17:19 Diclofenac Sodium 1% 100 Gm Gel (*Bkc) TOPICAL 1 applic BID SIM Administration Enoxaparin Sodium 40 mg 05/10/24 21:00 05/12/24 20:37 Enoxaparin 40 Mg/0.4 Ml Syringe SUB-Q 40 mg Q12HR SIM Administration Fish Oil 1 gm 05/09/24 22:10 05/12/24 20:37 [place] 3 Polyunsat Fatty Acids 1 Gm Cap PO 1 gm HS SIM Administration Folic Acid 1 mg 05/10/24 09:00 05/12/24 09:31 Folic Acid 1 Mg Tablet PO 1 mg DAILY SIM Administration Gabapentin 300 mg 05/09/24 21:55 05/12/24 20:36 Gabapentin 300 Mg Capsule PO 300 mg Q12HR SIM Administration Glucagon 1 mg 05/09/24 21:53 Glucagon For Inj 1 Mg Vial IM PRN PRN Hypoglycemia Protocol Glucose 15 gm 05/09/24 21:53 Glucose Oral Gel 15 Gm Of Glucse In 37.5 Gm Tube PO PRN PRN Hypoglycemia Protocol Guaifenesin 1,200 mg 05/10/24 09:00 05/12/24 20:37 Guaifenesin 12 Hr 600 Mg Tabcr PO 1,200 mg Q12HR SIM Administration Hydrochlorothiazide 12.5 mg 05/10/24 09:00 05/12/24 09:31 Hydrochlorothiazide 12.5 Mg Capsule PO 12.5 mg DAILY SIM Administration Dextrose 1,000 mls @ 100 mls/hr 05/09/24 21:53 Dextrose 5% 1,000 Ml IVPB PRN PRN Hypoglycemia Protocol Sodium Chloride 1,000 mls @ 100 mls/hr 05/11/24 14:35 05/13/24 06:04 Normal Saline Iv IV CONT 100 mls/hr .Q10H SIM Administration Insulin Aspart 1 - 3 units 05/09/24 22:10 05/12/24 22:22 Insulin Aspart (*Bkc) 100 Units/Ml SUB-Q Not Given HS SIM Protocol Insulin Aspart 3 - 6 units 05/10/24 08:00 05/12/24 17:20 Insulin Aspart (*Bkc) 100 Units/Ml SUB-Q 3 units TIDWM SIM Administration Protocol [place] Carbonate 300 mg 05/09/24 22:10 05/12/24 17:19 [place] Carbonate 300 Mg Capsule PO 300 mg BID SIM Administration Losartan Potassium 50 mg 05/10/24 09:00 05/11/24 09:32 Losartan Potassium 50 Mg Tablet PO 50 mg DAILY SIM Administration Nicotine 1 patch 05/10/24 09:00 05/12/24 09:32 Nicotine (*Pbkc) 21 Mg Patch TRANSDERM 1 patch DAILY SIM Administration Oxybutynin Chloride 15 mg 05/10/24 09:00 05/12/24 09:30 Oxybutynin Chloride Xl 5 Mg Tab.Er.24 PO 15 mg DAILY SIM Administration Polyethylene Glycol 17 gm 05/12/24 18:45 05/12/24 20:37 Polyethylene Glycol 3350 17 Gm Powd.Pack PO 17 gm QAM SIM Administration Prednisone 40 mg 05/12/24 08:00 05/12/24 09:31 Prednisone 20 Mg Tablet PO 05/15/24 07:59 40 mg DAILY@0800 SIM Administration Fluticasone/Salmeterol 2 puff 05/10/24 08:00 05/13/24 08:22 Fluticasone/Salmeterol 115-21 Mcg Inhaler 1 Puff INHALATION 2 puff Q12HRT SIM Administration Senna/Docusate Sodium 2 tab 05/09/24 22:10 05/12/24 20:37 Senna/Docusate Sodium Tablet PO 2 tab HS SIM Administration Simvastatin 40 mg 05/09/24 22:10 05/12/24 17:19 Simvastatin 20 Mg Tablet PO 40 mg QPM SIM Administration Sitagliptin Phosphate 50 mg 05/10/24 09:00 05/12/24 09:31 Sitagliptin Phosphate 50 Mg Tablet PO 50 mg DAILY SIM Administration Umeclidinium [place] 1 puff 05/12/24 10:35 05/13/24 08:23 Umeclidinium [place] 62.5 Mcg Ellipta INHALATION 1 puff DAILYRT SIM Administration Venlafaxine HCl 300 mg 05/10/24 09:00 05/12/24 09:31 Venlafaxine Hcl Xr 75 Mg Cap.Er.24h PO 300 mg DAILY SIM Administration Radiology Results: ITS Impressions Chest X-Ray 05/09/24 14:01 IMPRESSION: 1. No acute cardiopulmonary disease. Venous Doppler Study 05/10/24 09:19 IMPRESSION: 1. No deep venous thrombosis. Abdomen X-Ray 05/12/24 19:15 IMPRESSION: Mild gastric distention. Paucity of small bowel gas limits evaluation for small bowel abnormality. Incompletely visualized right colon, with a large volume of fecal material. Dilated large bowel loop over the central abdomen, probably representing air-filled sigmoid, with no rectal gas or fecal material. Colonic obstruction/ileus not excluded. Labs Labs: Laboratory Results - last 24 hr 05/12/24 05/12/24 05/12/24 08:41 12:00 16:38 WBC RBC Hgb Hct MCV MCH MCHC RDW Plt Count MPV Sodium Potassium Chloride Carbon Dioxide Anion Gap BUN Creatinine Estim Creat Clear Calc Estimated GFR Glucose POC Capillary Glucose 108 H 111 H 248 H Calcium Total Bilirubin AST ALT Alkaline Phosphatase Total Protein Albumin 05/12/24 05/13/24 05/13/24 21:53 05:20 07:50 WBC 12.2 H RBC 4.08 L Hgb 12.2 L Hct 36.9 L MCV 90.4 MCH 29.9 MCHC 33.1 RDW 12.7 Plt Count 171 MPV 10.2 Sodium 139 Potassium 3.9 Chloride 103 Carbon Dioxide 29 Anion Gap 7 BUN 22 H Creatinine 1.28 Estim Creat Clear Calc 79 Estimated GFR 59 Glucose 111 H POC Capillary Glucose 108 H 105 Calcium 9.1 Total Bilirubin 0.4 AST 54 ALT 87 H Alkaline Phosphatase 67 Total Protein 7.0 Albumin 3.7 Quality VTE Prophylaxis VTE prophylaxis: pharmacologic ordered Hospitalist [facility] Advance Care Plan I have confirmed that the patient's Advanced Care Plan is present, code status is documented, or surrogate decision maker is listed in patient medical record.: Yes Medication Reconciliation I have utilized all available resources to obtain, update and review the patients current medications (includes all prescriptions, OTC, herbals, cannabis, and nutritional supplements).: Yes
[2024-05-13] MEDS: SITagliptin PHOSPHATE 50 MG TABLET PO (10:22)
[2024-05-13] MEDS: GABAPENTIN 300 MG CAPSULE PO ×2 (10:22→20:13)
[2024-05-13] MEDS: FOLIC ACID 1 MG TABLET PO (10:22)
[2024-05-13] MEDS: AZITHROMYCIN 250 MG TABLET PO (10:22)
[2024-05-13] MEDS: hydroCHLOROthiazide 12.5 MG CAPSULE PO (10:22)
[2024-05-13] MEDS: ASPIRIN 81 MG CHEWABLE TABLET PO (10:22)
[2024-05-13] MEDS: ARIPiprazole 5 MG TABLET PO (10:22)
[2024-05-13] MEDS: oxyBUTYnin CHLORIDE XL 5 MG TAB.ER.24 15 MG PO (10:23)
[2024-05-13] MEDS: LITHIUM CARBONATE 300 MG CAPSULE PO ×2 (10:23→17:28)
[2024-05-13] MEDS: polyethylene glycoL 3350 17 GM POWD.PACK PO (10:23)
[2024-05-13] MEDS: VENLAFAXINE HCL XR 75 MG CAP.ER.24H 300 MG PO (10:23)
[2024-05-13] MEDS: predniSONE 20 MG TABLET 40 MG PO (10:23)
[2024-05-13] MEDS: amLODIPine BESYLATE 5 MG TABLET PO (10:23)
[2024-05-13] MEDS: ENOXAPARIN 40 MG/0.4 ML SYRINGE SUB-Q ×2 (10:23→20:14)
[2024-05-13] MEDS: NICOTINE (*PBKC) 21 MG PATCH 1 PATCH TRANSDERM (10:23)
[2024-05-13] MEDS: guaiFENesin 12 HR 600 MG TABCR 1200 MG PO ×2 (10:23→20:13)
--- NOTE | 2024-05-13 10:23 | PCRCNOTE ---
Home oxygen eval completed from [id number]. Patient walked approximately 150 feet on room air and never required supplemental oxygen. RT notified Dr. Tripathi of results.
[2024-05-13] MEDS: DICLOFENAC SODIUM 1% 100 GM GEL (*BKC) 1 APPLIC TOPICAL ×2 (10:24→17:28)
[2024-05-13 11:30] LABS: Glucose Point of Care 191 mg/dl (65-105)
--- NOTE | 2024-05-13 11:52 | PM.PNPUL ---
Progress Note: A&P Assessment and Plan (1) Acute exacerbation of COPD with asthma: Code(s): J44.1 - Chronic obstructive pulmonary disease with (acute) exacerbation Status: Acute Assessment and Plan: A 48-year-old male patient with a medical history of obstructive sleep apnea, COPD treated with maintenance bronchodilators, diabetes mellitus, and a psychiatric disorder, presented with an acute respiratory illness. His symptoms included cough, wheezing, and shortness of breath. Chest imaging showed clear lungs, and tests for common viral infections were negative. During physical examination, bilateral wheezing was noted. He is currently being treated for a COPD exacerbation, which is considered the most probable diagnosis. Although the patient reports some clinical improvement, bilateral wheezing persists. His oxygen flow was increased to 6 liters per minute due to hypoxemia, likely caused by dependent atelectasis, as he spends most of his time in bed. 05/11/24: Plan: Continue with the current treatment regimen, which includes antibiotics, intravenous steroids, nebulized short-acting bronchodilators, and DVT prophylaxis. Encourage the patient to get out of bed and sit in a chair, and use incentive spirometry. 05/12/2024: Overall the patient feels better. Tells me he is 80% back to his normal breathing status. Denies cough, phlegm or hemoptysis. Afebrile. White blood cell count 12.4, creatinine 1.48. Currently the patient is on 4 L nasal cannula saturations 98%. I decreased him to 3 L. Patient tells me he has a CPAP machine at home but was missing parts over a year ago and he has not used it in the last year. Plan: Patient with mild expiratory wheezes today. Continue treatment with prednisone 40 a day, day 3 steroids. I will discontinue DuoNebs and continue him on Advair 115-21 at 2 puffs b.i.d.. I will add Incruse. continue guaifenesin 1200 mg p.o. b.i.d.. Continue azithromycin day 4. Goal saturation 90-94%, wean oxygen as tolerated. 05/13/2024: Patient tells me he is breathing 100% back to his normal. He denies cough or phlegm production. His white blood cell count is 12.2, his creatinine is 1.28. He has no wheezing on exam. Patient was on room air with saturations 95%. Patient had an overnight oximetry on 4 L with recording duration of 4 hours and 15 minutes. Average saturation 94%. Low saturation 87%. Time with saturation less than or equal to 88% was 1 minute. Oxygen desaturation index 5.7. Home O2 assessment: Rest room air saturation 93%. Exercise room air saturation 95%. Plan: no wheezes today. Continue prednisone 40 a day, day 4 of steroids. Continue Advair 115-21 at 2 puffs b.i.d., Incruse Ellipta 62.5 at 1 puff q.day. continue guaifenesin 1200 mg p.o. b.i.d. and has completed 5 days of azithromycin. Currently on room air And requires no oxygen at rest or with activity. I will perform overnight oximetry on room air tonight to determine if he needs supplemental oxygen at night. Discussed with Dr. Martínez, will follow with you. (2) Obstructive sleep apnea on CPAP: Code(s): G47.33 - Obstructive sleep apnea (adult) (pediatric) Status: Chronic Assessment and Plan: Patient tells me he has a CPAP machine at home but was missing parts over a year ago and he has not used it in the last year. 05/12/24: Patient tells me cannot tolerate the BiPAP and did not wear this last night. plan: I will perform overnight oximetry on 4 L tonight. 05/13/2024: Patient had an overnight oximetry on 4 L with recording duration of 4 hours and 15 minutes. Average saturation 94%. Low saturation 87%. Time with saturation less than or equal to 88% was 1 minute. Oxygen desaturation index 5.7. Plan: I will perform overnight oximetry on room air to see if patient requires oxygen at night. Subjective Date/time seen: 05/13/24 11:52 Interval history: 05/12/2024: Overall the patient feels better. Tells me he is 80% back to his normal breathing status. Denies cough, phlegm or hemoptysis. Afebrile. White blood cell count 12.4, creatinine 1.48. Currently the patient is on 4 L nasal cannula saturations 98%. I decreased him to 3 L. Patient tells me he has a CPAP machine at home but was missing parts over a year ago and he has not used it in the last year. 05/13/2024: Patient tells me he is breathing 100% back to his normal. He denies cough or phlegm production. His white blood cell count is 12.2, his creatinine is 1.28. He has no wheezing on exam. Patient was on room air with saturations 95%. Patient had an overnight oximetry on 4 L with recording duration of 4 hours and 15 minutes. Average saturation 94%. Low saturation 87%. Time with saturation less than or equal to 88% was 1 minute. Oxygen desaturation index 5.7 Review of Systems Review of Systems: All systems reviewed & are unremarkable except as noted in HPI and below (HPI and below) Constitutional: Constitutional: Reports no additional constitutional complaints Eyes: Eyes: Reports no additional eye complaints ENT: Reports system reviewed and no additional complaints, except as documented Cardiovascular: Cardiovascular: Reports no additional cardiovascular complaints Respiratory: Respiratory: Reports no additional respiratory complaints Gastrointestinal: Gastrointestinal: Reports no additional gastrointestinal complaints Musculoskeletal: Musculoskeletal: Reports no additional musculoskeletal complaints Neurologic: Reports system reviewed and no additional complaints, except as documented Psychiatric: Psychiatric: Reports no additional psychiatric complaints Endocrine: Endocrine: Reports no additional endocrine complaints Hematologic/Lymphatic: Hematologic/Lymphatic: Reports no additional hematologic/lymphatic complaints Allergic/Immunologic: Allergic/Immunologic: Reports no additional allergic/immunologic complaints Exam Const: General: cooperative, healthy appearing and comfortable Orientation/consciousness: oriented to person, oriented to place and oriented to time HENMT: Head: normal to inspection Ears: hearing grossly normal bilaterally Eyes: General: appearance normal, both eyes and all related structures Neck: Neck: normal visual inspection Chest: Chest palpation & inspection: normal inspection of the chest Resp: Effort & Inspection: normal respiratory effort and able to speak in complete sentences Auscultation: no crackles, no rales, no rhonchi, no wheezes and lung sounds not diminished Other: No wheezes Cardio: Jugular venous distension: no JVD GI: Inspection: normal to inspection Skin: General skin exam: normal color Neuro: General: oriented to person, oriented to place and oriented to time Extrem: General: normal to inspection Other: Improved edema. Psych: Appearance: grossly normal Objective Data Vital Signs Vital Signs: Vital Signs - 24 hr 05/12/24 13:50 05/12/24 13:50 05/12/24 14:00 Temperature 36.6 C Pulse Rate 82 82 76 Respiratory Rate 20 20 19 Blood Pressure 132/70 Pulse Oximetry 95 96 Oxygen Delivery Nasal Cannula Oxygen Flow Rate 3 Fraction of Inspired Oxygen 05/12/24 14:01 05/12/24 20:00 05/12/24 20:05 Temperature Pulse Rate 83 82 Respiratory Rate 20 20 Blood Pressure Pulse Oximetry 94 Oxygen Delivery Nasal Cannula Oxygen Flow Rate 4 Fraction of Inspired Oxygen 05/12/24 20:11 05/12/24 20:17 05/12/24 21:47 Temperature 36.4 C L Pulse Rate 82 82 85 Respiratory Rate 20 20 Blood Pressure 126/84 Pulse Oximetry 99 95 Oxygen Delivery Nasal Cannula Oxygen Flow Rate 3 Fraction of Inspired Oxygen 05/12/24 22:50 05/13/24 04:02 05/13/24 08:22 Temperature 36.6 C Pulse Rate 80 Respiratory Rate 18 Blood Pressure 118/81 Pulse Oximetry 99 96 97 Oxygen Delivery Nasal Cannula Nasal Cannula Oxygen Flow Rate 4 4 Fraction of Inspired Oxygen 36 05/13/24 08:22 05/13/24 10:03 05/13/24 10:07 Temperature Pulse Rate 80 80 107 H Respiratory Rate 20 Blood Pressure Pulse Oximetry 93 95 Oxygen Delivery Room Air Room Air Oxygen Flow Rate Fraction of Inspired Oxygen 21 21 05/13/24 10:10 Temperature Pulse Rate 112 H Respiratory Rate Blood Pressure Pulse Oximetry 93 Oxygen Delivery Room Air Oxygen Flow Rate Fraction of Inspired Oxygen 21 Intake/Output Intake/Output: Intake & Output 05/10/24 05/11/24 05/12/24 05/13/24 23:59 23:59 23:59 23:59 Intake Total 4836 811 3684.3 1723.3 Output Total 1975 900 350 Balance -755 -200 4256.3 1373.3 Meds/Results Medications: Active Medications Generic Name Dose Route Start Last Admin Trade Name Freq PRN Reason Stop Dose Admin Acetaminophen 650 mg 05/09/24 16:32 Acetaminophen 325 Mg Tablet PO Q4H PRN Mild Pain (1-3) or Fever Amlodipine Besylate 5 mg 05/10/24 09:00 05/13/24 10:23 Amlodipine Besylate 5 Mg Tablet PO 5 mg DAILY SIM Administration Aripiprazole 5 mg 05/10/24 09:00 05/13/24 10:22 Aripiprazole 5 Mg Tablet PO 5 mg DAILY SIM Administration Aspirin 81 mg 05/10/24 09:00 05/13/24 10:22 Aspirin 81 Mg Chewable Tablet PO 81 mg DAILY SIM Administration Benztropine Mesylate 1 mg 05/09/24 22:05 05/12/24 20:37 Benztropine Mesylate 1 Mg Tablet PO 1 mg HS SIM Administration Desipramine HCl 150 mg 05/09/24 22:05 05/12/24 20:36 Desipramine Hcl 25 Mg Tablet PO 150 mg HS SIM Administration Dextrose 12.5 gm 05/09/24 21:53 Dextrose 50% 25 Gm/50 Ml Syringe IV PUSH PRN PRN Hypoglycemia Protocol Diclofenac Sodium 1 applic 05/10/24 09:00 05/13/24 10:24 Diclofenac Sodium 1% 100 Gm Gel (*Bkc) TOPICAL 1 applic BID SIM Administration Enoxaparin Sodium 40 mg 05/10/24 21:00 05/13/24 10:23 Enoxaparin 40 Mg/0.4 Ml Syringe SUB-Q 40 mg Q12HR SIM Administration Fish Oil 1 gm 05/09/24 22:10 05/12/24 20:37 [place] 3 Polyunsat Fatty Acids 1 Gm Cap PO 1 gm HS SIM Administration Folic Acid 1 mg 05/10/24 09:00 05/13/24 10:22 Folic Acid 1 Mg Tablet PO 1 mg DAILY SIM Administration Gabapentin 300 mg 05/09/24 21:55 05/13/24 10:22 Gabapentin 300 Mg Capsule PO 300 mg Q12HR SIM Administration Glucagon 1 mg 05/09/24 21:53 Glucagon For Inj 1 Mg Vial IM PRN PRN Hypoglycemia Protocol Glucose 15 gm 05/09/24 21:53 Glucose Oral Gel 15 Gm Of Glucse In 37.5 Gm Tube PO PRN PRN Hypoglycemia Protocol Guaifenesin 1,200 mg 05/10/24 09:00 05/13/24 10:23 Guaifenesin 12 Hr 600 Mg Tabcr PO 1,200 mg Q12HR SIM Administration Hydrochlorothiazide 12.5 mg 05/10/24 09:00 05/13/24 10:22 Hydrochlorothiazide 12.5 Mg Capsule PO 12.5 mg DAILY SIM Administration Dextrose 1,000 mls @ 100 mls/hr 05/09/24 21:53 Dextrose 5% 1,000 Ml IVPB PRN PRN Hypoglycemia Protocol Sodium Chloride 1,000 mls @ 100 mls/hr 05/11/24 14:35 05/13/24 06:04 Normal Saline Iv IV CONT 100 mls/hr .Q10H SIM Administration Insulin Aspart 1 - 3 units 05/09/24 22:10 05/12/24 22:22 Insulin Aspart (*Bkc) 100 Units/Ml SUB-Q Not Given HS SIM Protocol Insulin Aspart 3 - 6 units 05/10/24 08:00 05/13/24 09:01 Insulin Aspart (*Bkc) 100 Units/Ml SUB-Q Not Given TIDWM SIM Protocol [place] Carbonate 300 mg 05/09/24 22:10 05/13/24 10:23 [place] Carbonate 300 Mg Capsule PO 300 mg BID SIM Administration Losartan Potassium 50 mg 05/10/24 09:00 05/11/24 09:32 Losartan Potassium 50 Mg Tablet PO 50 mg DAILY SIM Administration Nicotine 1 patch 05/10/24 09:00 05/13/24 10:23 Nicotine (*Pbkc) 21 Mg Patch TRANSDERM 1 patch DAILY SIM Administration Oxybutynin Chloride 15 mg 05/10/24 09:00 05/13/24 10:23 Oxybutynin Chloride Xl 5 Mg Tab.Er.24 PO 15 mg DAILY SIM Administration Polyethylene Glycol 17 gm 05/12/24 18:45 05/13/24 10:23 Polyethylene Glycol 3350 17 Gm Powd.Pack PO 17 gm QAM SIM Administration Prednisone 40 mg 05/12/24 08:00 05/13/24 10:23 Prednisone 20 Mg Tablet PO 05/15/24 07:59 40 mg DAILY@0800 SIM Administration Fluticasone/Salmeterol 2 puff 05/10/24 08:00 05/13/24 08:22 Fluticasone/Salmeterol 115-21 Mcg Inhaler 1 Puff INHALATION 2 puff Q12HRT SIM Administration Senna/Docusate Sodium 2 tab 05/09/24 22:10 05/12/24 20:37 Senna/Docusate Sodium Tablet PO 2 tab HS SIM Administration Simvastatin 40 mg 05/09/24 22:10 05/12/24 17:19 Simvastatin 20 Mg Tablet PO 40 mg QPM SIM Administration Sitagliptin Phosphate 50 mg 05/10/24 09:00 05/13/24 10:22 Sitagliptin Phosphate 50 Mg Tablet PO 50 mg DAILY SIM Administration Umeclidinium [place] 1 puff 05/12/24 10:35 05/13/24 08:23 Umeclidinium [place] 62.5 Mcg Ellipta INHALATION 1 puff DAILYRT SIM Administration Venlafaxine HCl 300 mg 05/10/24 09:00 05/13/24 10:23 Venlafaxine Hcl Xr 75 Mg Cap.Er.24h PO 300 mg DAILY SIM Administration Radiology Results: ITS Impressions Chest X-Ray 05/09/24 14:01 IMPRESSION: 1. No acute cardiopulmonary disease. Venous Doppler Study 05/10/24 09:19 IMPRESSION: 1. No deep venous thrombosis. Abdomen X-Ray 05/12/24 19:15 IMPRESSION: Mild gastric distention. Paucity of small bowel gas limits evaluation for small bowel abnormality. Incompletely visualized right colon, with a large volume of fecal material. Dilated large bowel loop over the central abdomen, probably representing air-filled sigmoid, with no rectal gas or fecal material. Colonic obstruction/ileus not excluded. Labs Labs: Laboratory Results - last 24 hr 05/12/24 05/12/24 05/12/24 12:00 16:38 21:53 WBC RBC Hgb Hct MCV MCH MCHC RDW Plt Count MPV Sodium Potassium Chloride Carbon Dioxide Anion Gap BUN Creatinine Estim Creat Clear Calc Estimated GFR Glucose POC Capillary Glucose 111 H 248 H 108 H Calcium Total Bilirubin AST ALT Alkaline Phosphatase Total Protein Albumin 05/13/24 05/13/24 05/13/24 05:20 07:50 11:21 WBC 12.2 H RBC 4.08 L Hgb 12.2 L Hct 36.9 L MCV 90.4 MCH 29.9 MCHC 33.1 RDW 12.7 Plt Count 171 MPV 10.2 Sodium 139 Potassium 3.9 Chloride 103 Carbon Dioxide 29 Anion Gap 7 BUN 22 H Creatinine 1.28 Estim Creat Clear Calc 79 Estimated GFR 59 Glucose 111 H POC Capillary Glucose 105 191 H Calcium 9.1 Total Bilirubin 0.4 AST 54 ALT 87 H Alkaline Phosphatase 67 Total Protein 7.0 Albumin 3.7
[2024-05-13 16:50] LABS: Glucose Point of Care 188 mg/dl (65-105)
[2024-05-13] MEDS: SIMVASTATIN 20 MG TABLET 40 MG PO (17:28)
[2024-05-13] MEDS: OMEGA 3 POLYUNSAT FATTY ACIDS 1 GM CAP PO (20:12)
[2024-05-13] MEDS: BENZTROPINE MESYLATE 1 MG TABLET PO (20:13)
[2024-05-13] MEDS: SENNA/DOCUSATE SODIUM TABLET 2 TAB PO (20:13)
[2024-05-13] MEDS: DESIPRAMINE HCL 25 MG TABLET 150 MG PO (20:13)
[2024-05-13 20:38] LABS: Glucose Point of Care 223 mg/dl (65-105)
[2024-05-13] MEDS: INSULIN ASPART (*BKC) 100 UNITS/ML SUB-Q (20:42)
[2024-05-14 05:27] LABS: Hematocrit 37.6 % (42.0-52.0); Hemoglobin 12.7 g/dL (14.0-18.0); Mean Corpuscular HGB Conc 33.8 g/dl (32-36); Mean Corpuscular Hemoglobin 30.5 pg (26-34); Mean Corpuscular Volume 90.4 fl (80-100); Mean Platelet Volume 10.6 fl (7.4-10.4); Platelet Count Result 179 k/mm3 (150-375); Red Blood Count 4.16 M/mm3 (4.6-6.20); Red Cell Distribution Width 12.9 % (11.5-14.5); White Blood Count 12.6 K/mm3 (4.5-10.0)
[2024-05-14 05:48] LABS: Alanine Aminotransferase 135 U/L (6-50); Alkaline Phosphatase 71 U/L (38-126); Anion Gap 6 mmol/L (4-12); Aspartate Amino Transferase 52 U/L (17-59); Bilirubin,Total 0.4 mg/dL (0.2-1.3); Blood Urea Nitrogen 18 mg/dL (9-20); Calcium 9.6 mg/dL (8.4-10.2); Carbon Dioxide 32 mmol/L (22-30); Chloride 100 mmol/L (98-107); Estimated CRCL calculation 77 ml/min; Estimated Glomerular Filt Rate 57; Glucose 127 mg/dL (65-110); Potassium 3.7 mmol/L (3.4-5.0); Sodium 138 mmol/L (137-145)
[2024-05-14 06:00] VITALS: BP 126/62; PULSE 86; RESP 15; TEMP 36.6; O2SAT 92
[2024-05-14 08:41] LABS: Glucose Point of Care 139 mg/dl (65-105)
[2024-05-14] MEDS: UMECLIDINIUM BROMIDE 62.5 MCG ELLIPTA 1 PUFF INHALATION (09:00)
[2024-05-14] MEDS: FLUTICASONE/SALMETEROL 115-21 MCG INHALER 1 PUFF 2 PUFF INHALATION (09:00)
--- NOTE | 2024-05-14 09:08 | PM.PNPUL ---
Progress Note: A&P Assessment and Plan (1) Acute exacerbation of COPD with asthma: Code(s): J44.1 - Chronic obstructive pulmonary disease with (acute) exacerbation Status: Acute Assessment and Plan: A 48-year-old male with a medical history of obstructive sleep apnea, COPD managed with maintenance bronchodilators, diabetes mellitus, and a psychiatric disorder, presented with an acute respiratory illness characterized by cough, wheezing, and shortness of breath. Chest imaging revealed clear lungs, and tests for common viral infections were negative. During the physical examination, bilateral wheezing was observed. The patient was treated for a COPD exacerbation, showing significant improvement over the last 48 hours. He is currently on room air, and the physical examination reveals a few rhonchi but no wheezing. An ApneaLink study indicated no clinically significant oxyhemoglobin desaturation. Notably, the sleep apnea study was conducted on room air without CPAP. Plan: The patient is cleared for discharge. He will continue his maintenance bronchodilator therapy, including Advair HFA 115/21, two puffs every 12 hours; Incruse, one puff daily; DuoNeb nebulized treatments three times daily as needed; an albuterol rescue inhaler as needed; and a prednisone tapering regimen: 30 mg for 3 days, followed by 20 mg daily for 3 days, and finally 10 mg daily for 3 days. The patient is advised to resume using his CPAP device for sleep apnea and to follow up with his doctor at [facility]. I will sign off. Please call with any questions. (2) Obstructive sleep apnea on CPAP: Code(s): G47.33 - Obstructive sleep apnea (adult) (pediatric) Status: Chronic (3) Type 2 diabetes mellitus: Code(s): E11.9 - Type 2 diabetes mellitus without complications Status: Acute Subjective Date/time seen: 05/14/24 09:08 Interval history: Patient has no new respiratory symptoms. Respiratory status significantly improved over the weekend. Currently on room air sitting in chair. Eager to go home. Underwent apnea link study last night. Review of Systems Review of Systems: All systems reviewed & are unremarkable except as noted in HPI and below (HPI and below) Exam Narrative: GENERAL APPEARANCE: Well developed, well nourished, alert and cooperative, and appears to be in no acute distress while on supplemental oxygen via nasal cannula SKIN: Inspection of the skin reveals no rashes, ulcerations or petechiae. HEENT: Sclerae anicteric and conjunctivae pink and moist. Extraocular movements were intact and pupils were equal, round, and reactive to light. The oral mucosa, hard and soft palate, tongue and posterior pharynx were normal. NECK: Supple. There was no thyroid enlargement, and no tenderness, or masses were felt. CHEST: Clear lungs bilaterally, rare rhonchi CARDIAC: There was a regular rate and rhythm without any murmurs, gallops, rubs. ABDOMEN: Soft and nontender with normal bowel sounds. There was no organomegaly. LYMPH NODES: No lymphadenopathy was appreciated in the neck. EXTREMITIES: No cyanosis, clubbing; chronic stasis dermatitis changes in lower extremities. NEUROLOGIC: Alert and oriented x 3. Normal affect. Objective Data Vital Signs Vital Signs: Vital Signs - 24 hr 05/13/24 10:03 05/13/24 10:07 05/13/24 10:10 Temperature Pulse Rate 80 107 H 112 H Respiratory Rate Blood Pressure Pulse Oximetry 93 95 93 Oxygen Delivery Room Air Room Air Room Air Fraction of Inspired Oxygen 21 21 21 05/13/24 10:24 05/13/24 14:00 05/13/24 20:15 Temperature 36.4 C L Pulse Rate 87 87 Respiratory Rate 18 18 Blood Pressure 120/80 Pulse Oximetry 93 93 Oxygen Delivery Room Air Room Air Fraction of Inspired Oxygen 21 05/13/24 21:05 05/13/24 22:00 05/14/24 06:00 Temperature 36.1 C L 36.6 C Pulse Rate 88 86 Respiratory Rate 19 15 Blood Pressure 118/76 126/62 Pulse Oximetry 94 95 92 Oxygen Delivery Room Air Fraction of Inspired Oxygen Intake/Output Intake/Output: Intake & Output 05/11/24 05/12/24 05/13/24 05/14/24 23:59 23:59 23:59 23:59 Intake Total 700 4256.3 2383.3 700 Output Total 900 350 Balance -200 4256.3 2033.3 700 Meds/Results Medications: Active Medications Generic Name Dose Route Start Last Admin Trade Name Freq PRN Reason Stop Dose Admin Acetaminophen 650 mg 05/09/24 16:32 Acetaminophen 325 Mg Tablet PO Q4H PRN Mild Pain (1-3) or Fever Amlodipine Besylate 5 mg 05/10/24 09:00 05/13/24 10:23 Amlodipine Besylate 5 Mg Tablet PO 5 mg DAILY SIM Administration Aripiprazole 5 mg 05/10/24 09:00 05/13/24 10:22 Aripiprazole 5 Mg Tablet PO 5 mg DAILY SIM Administration Aspirin 81 mg 05/10/24 09:00 05/13/24 10:22 Aspirin 81 Mg Chewable Tablet PO 81 mg DAILY SIM Administration Benztropine Mesylate 1 mg 05/09/24 22:05 05/13/24 20:13 Benztropine Mesylate 1 Mg Tablet PO 1 mg HS SIM Administration Desipramine HCl 150 mg 05/09/24 22:05 05/13/24 20:13 Desipramine Hcl 25 Mg Tablet PO 150 mg HS SIM Administration Dextrose 12.5 gm 05/09/24 21:53 Dextrose 50% 25 Gm/50 Ml Syringe IV PUSH PRN PRN Hypoglycemia Protocol Diclofenac Sodium 1 applic 05/10/24 09:00 05/13/24 17:28 Diclofenac Sodium 1% 100 Gm Gel (*Bkc) TOPICAL 1 applic BID SIM Administration Enoxaparin Sodium 40 mg 05/10/24 21:00 05/13/24 20:14 Enoxaparin 40 Mg/0.4 Ml Syringe SUB-Q 40 mg Q12HR SIM Administration Fish Oil 1 gm 05/09/24 22:10 05/13/24 20:12 [place] 3 Polyunsat Fatty Acids 1 Gm Cap PO 1 gm HS SIM Administration Folic Acid 1 mg 05/10/24 09:00 05/13/24 10:22 Folic Acid 1 Mg Tablet PO 1 mg DAILY SIM Administration Gabapentin 300 mg 05/09/24 21:55 05/13/24 20:13 Gabapentin 300 Mg Capsule PO 300 mg Q12HR SIM Administration Glucagon 1 mg 05/09/24 21:53 Glucagon For Inj 1 Mg Vial IM PRN PRN Hypoglycemia Protocol Glucose 15 gm 05/09/24 21:53 Glucose Oral Gel 15 Gm Of Glucse In 37.5 Gm Tube PO PRN PRN Hypoglycemia Protocol Guaifenesin 1,200 mg 05/10/24 09:00 05/13/24 20:13 Guaifenesin 12 Hr 600 Mg Tabcr PO 1,200 mg Q12HR SIM Administration Hydrochlorothiazide 12.5 mg 05/10/24 09:00 05/13/24 10:22 Hydrochlorothiazide 12.5 Mg Capsule PO 12.5 mg DAILY SIM Administration Dextrose 1,000 mls @ 100 mls/hr 05/09/24 21:53 Dextrose 5% 1,000 Ml IVPB PRN PRN Hypoglycemia Protocol Insulin Aspart 1 - 3 units 05/09/24 22:10 05/13/24 20:42 Insulin Aspart (*Bkc) 100 Units/Ml SUB-Q 1 units HS SIM Administration Protocol Insulin Aspart 3 - 6 units 05/10/24 08:00 05/14/24 08:47 Insulin Aspart (*Bkc) 100 Units/Ml SUB-Q Not Given TIDWM SIM Protocol [place] Carbonate 300 mg 05/09/24 22:10 05/13/24 17:28 [place] Carbonate 300 Mg Capsule PO 300 mg BID SIM Administration Losartan Potassium 50 mg 05/10/24 09:00 05/11/24 09:32 Losartan Potassium 50 Mg Tablet PO 50 mg DAILY SIM Administration Nicotine 1 patch 05/10/24 09:00 05/13/24 10:23 Nicotine (*Pbkc) 21 Mg Patch TRANSDERM 1 patch DAILY SIM Administration Oxybutynin Chloride 15 mg 05/10/24 09:00 05/13/24 10:23 Oxybutynin Chloride Xl 5 Mg Tab.Er.24 PO 15 mg DAILY SIM Administration Polyethylene Glycol 17 gm 05/12/24 18:45 05/13/24 10:23 Polyethylene Glycol 3350 17 Gm Powd.Pack PO 17 gm QAM SIM Administration Prednisone 40 mg 05/12/24 08:00 05/13/24 10:23 Prednisone 20 Mg Tablet PO 05/15/24 07:59 40 mg DAILY@0800 SIM Administration Fluticasone/Salmeterol 2 puff 05/10/24 08:00 05/14/24 09:00 Fluticasone/Salmeterol 115-21 Mcg Inhaler 1 Puff INHALATION 2 puff Q12HRT SIM Administration Senna/Docusate Sodium 2 tab 05/09/24 22:10 05/13/24 20:13 Senna/Docusate Sodium Tablet PO 2 tab HS SIM Administration Simvastatin 40 mg 05/09/24 22:10 05/13/24 17:28 Simvastatin 20 Mg Tablet PO 40 mg QPM SIM Administration Sitagliptin Phosphate 50 mg 05/10/24 09:00 05/13/24 10:22 Sitagliptin Phosphate 50 Mg Tablet PO 50 mg DAILY SIM Administration Umeclidinium [place] 1 puff 05/12/24 10:35 05/14/24 09:00 Umeclidinium [place] 62.5 Mcg Ellipta INHALATION 1 puff DAILYRT SIM Administration Venlafaxine HCl 300 mg 05/10/24 09:00 05/13/24 10:23 Venlafaxine Hcl Xr 75 Mg Cap.Er.24h PO 300 mg DAILY SIM Administration Radiology Results: ITS Impressions Chest X-Ray 05/09/24 14:01 IMPRESSION: 1. No acute cardiopulmonary disease. Venous Doppler Study 05/10/24 09:19 IMPRESSION: 1. No deep venous thrombosis. Abdomen X-Ray 05/12/24 19:15 IMPRESSION: Mild gastric distention. Paucity of small bowel gas limits evaluation for small bowel abnormality. Incompletely visualized right colon, with a large volume of fecal material. Dilated large bowel loop over the central abdomen, probably representing air-filled sigmoid, with no rectal gas or fecal material. Colonic obstruction/ileus not excluded. Labs Labs: Laboratory Results - last 24 hr 05/13/24 05/13/24 05/13/24 11:21 16:37 20:11 WBC RBC Hgb Hct MCV MCH MCHC RDW Plt Count MPV Sodium Potassium Chloride Carbon Dioxide Anion Gap BUN Creatinine Estim Creat Clear Calc Estimated GFR Glucose POC Capillary Glucose 191 H 188 H 223 H Calcium Total Bilirubin AST ALT Alkaline Phosphatase Total Protein Albumin 05/14/24 05/14/24 05:08 08:32 WBC 12.6 H RBC 4.16 L Hgb 12.7 L Hct 37.6 L MCV 90.4 MCH 30.5 MCHC 33.8 RDW 12.9 Plt Count 179 MPV 10.6 H Sodium 138 Potassium 3.7 Chloride 100 Carbon Dioxide 32 H Anion Gap 6 BUN 18 Creatinine 1.32 H Estim Creat Clear Calc 77 Estimated GFR 57 L Glucose 127 H POC Capillary Glucose 139 H Calcium 9.6 Total Bilirubin 0.4 AST 52 ALT 135 H Alkaline Phosphatase 71 Total Protein 7.0 Albumin 4.0
[2024-05-14] MEDS: predniSONE 20 MG TABLET 40 MG PO (09:23)
[2024-05-14] MEDS: VENLAFAXINE HCL XR 75 MG CAP.ER.24H 300 MG PO (09:23)
[2024-05-14] MEDS: GABAPENTIN 300 MG CAPSULE PO (09:23)
[2024-05-14] MEDS: hydroCHLOROthiazide 12.5 MG CAPSULE PO (09:23)
[2024-05-14] MEDS: ARIPiprazole 5 MG TABLET PO (09:23)
[2024-05-14] MEDS: ASPIRIN 81 MG CHEWABLE TABLET PO (09:23)
[2024-05-14] MEDS: FOLIC ACID 1 MG TABLET PO (09:23)
[2024-05-14] MEDS: oxyBUTYnin CHLORIDE XL 5 MG TAB.ER.24 15 MG PO (09:23)
[2024-05-14] MEDS: guaiFENesin 12 HR 600 MG TABCR 1200 MG PO (09:23)
[2024-05-14] MEDS: SITagliptin PHOSPHATE 50 MG TABLET PO (09:23)
[2024-05-14] MEDS: amLODIPine BESYLATE 5 MG TABLET PO (09:23)
[2024-05-14] MEDS: DICLOFENAC SODIUM 1% 100 GM GEL (*BKC) 1 APPLIC TOPICAL ×2 (09:24→17:10)
[2024-05-14] MEDS: NICOTINE (*PBKC) 21 MG PATCH 1 PATCH TRANSDERM (09:24)
[2024-05-14] MEDS: ENOXAPARIN 40 MG/0.4 ML SYRINGE SUB-Q (09:24)
[2024-05-14] MEDS: LITHIUM CARBONATE 300 MG CAPSULE PO ×2 (09:24→17:10)
[2024-05-14 11:56] LABS: Glucose Point of Care 92 mg/dl (65-105)
[2024-05-14 15:00] VITALS: BP 115/76; PULSE 80; RESP 18; TEMP 36.4; O2SAT 94
--- NOTE | 2024-05-14 15:30 | P.DS_ITS ---
DS: Admitting Diagnosis Discharge Date 05/14/2024 Admitting Diagnosis Shortness of breath. DS: Discharge Diagnosis Discharge Diagnosis (1) Acute hypoxic on chronic hypercapnic respiratory failure: Code(s): J96.01 - Acute respiratory failure with hypoxia; J96.12 - Chronic respiratory failure with hypercapnia Status: Acute Assessment and Plan: * Consult pulmonology * Supplemental oxygen currently at 6 L high-flow * Bronchodilators * Discontinue IV steroids and started prednisone 40 mg p.o. for 3 days * Continue azithromycin * Acapella/incentive spirometry * Repeat ABG this morning showing pH of 7.364, pCO2 of 49, PO2 of 81.5 and HC03 of 27.3. * Appreciate pulmonology as recommendations for further treatment. * CPT ordered * Tonight patient will undergo oximetry in room air to determine supplement oxygen at night * ok to dc today with supplementary oxygen at night 2 liters (2) Acute exacerbation of COPD with asthma: Code(s): J44.1 - Chronic obstructive pulmonary disease with (acute) exacerbation Status: Acute Assessment and Plan: * See 1. (3) Bilateral lower extremity edema: Code(s): R60.0 - Localized edema Status: Acute Assessment and Plan: * venous dopplers are negative (4) Renal failure: Code(s): N19 - Unspecified kidney failure Status: Acute Assessment and Plan: * can restart bp meds on dc (5) Obstructive sleep apnea on CPAP: Code(s): G47.33 - Obstructive sleep apnea (adult) (pediatric) Status: Chronic Assessment and Plan: cpap at night (6) Type 2 diabetes mellitus: Code(s): E11.9 - Type 2 diabetes mellitus without complications Status: Acute Assessment and Plan: * Continue Januvia (7) Hypertension: Code(s): I10 - Essential (primary) hypertension Status: Chronic Assessment and Plan: * restart home bp meds on dc (8) Tobacco dependence: Code(s): F17.200 - Nicotine dependence, unspecified, uncomplicated Status: Chronic Assessment and Plan: * Nicotine Patch ordered (9) Hyperkalemia: Code(s): E87.5 - Hyperkalemia Status: Acute Assessment and Plan: * resolved (10) Self-care deficit: Code(s): Z78.9 - Other specified health status Status: Acute Assessment and Plan: * dc back to [facility] DS: Summary Hospital Course Hospital Course: Patient is currently doing well. Discussed with the plating inspector. Patient will undergo oximetry in room air tonight. Will discontinue NSS at 100 mL/hr. His creatinine is getting better and advised to encourage oral fluid intake. Will continue Advair and plating inspector added Incruse. Ok to dc with supplementary oxygen of 2 liters overnight Time Spent with Patient Time attestation: Total time spent providing and/or coordinating discharge services:55 minutes on day of dc Exam Narrative: General: Really can not, chronically ill-appearing male lying left-sided in bed at this time in no acute distress. HEENT: PERRL, EOMI. Sclera anicteric. Moist mucous membranes. Neck: Supple. Exam limited due to neck circumference. No JVD or bruits. Respiratory: Respirations are nonlabored patient has coarse rhonchi throughout all lobes worse on expiration. There is a prolonged expiratory phase. Cardiovascular: Regular rate and rhythm with S1-S2. Gastrointestinal: Abdomen is soft, obese, rotund, nontender, and nondistended with positive bowel sounds. Skin: Warm and dry. Chronic skin changes and erythema of the lower legs with scattered excoriations. No acute infection noted. Extremities: No cyanosis or clubbing. Chronic pitting and nonpitting edema of the lower extremities. No palpable knots or cords. Negative Chuck sign bilaterally. Neurological: Alert. Oriented to self and year only. Cranial nerves 2-12 are grossly intact. No gross focal deficits to casual conversation. Psychiatric: good mood DS: Data Data Completed and Pending Labs on day of discharge: Labs from last 24 hours 05/14/24 05/14/24 05/14/24 11:45 08:32 05:08 WBC 12.6 H RBC 4.16 L Hgb 12.7 L Hct 37.6 L MCV 90.4 MCH 30.5 MCHC 33.8 RDW 12.9 Plt Count 179 MPV 10.6 H Sodium 138 Potassium 3.7 Chloride 100 Carbon Dioxide 32 H Anion Gap 6 BUN 18 Creatinine 1.32 H Estim Creat Clear Calc 77 Estimated GFR 57 L Glucose 127 H POC Capillary Glucose 92 139 H Calcium 9.6 Total Bilirubin 0.4 AST 52 ALT 135 H Alkaline Phosphatase 71 Total Protein 7.0 Albumin 4.0 05/13/24 05/13/24 20:11 16:37 WBC RBC Hgb Hct MCV MCH MCHC RDW Plt Count MPV Sodium Potassium Chloride Carbon Dioxide Anion Gap BUN Creatinine Estim Creat Clear Calc Estimated GFR Glucose POC Capillary Glucose 223 H 188 H Calcium Total Bilirubin AST ALT Alkaline Phosphatase Total Protein Albumin Discharge Plan Discharge Attending physician on discharge: Tiffanie Hodge Consulting providers: Kennedy Eli Discharging Clinician: Tiffanie Hodge Anticipated Discharge Date/Time: 05/14/24 15:24 Patient Disposition: Home, Self-Care Activity: as tolerated Diet: as tolerated Discharge Instructions: Per Care Coordination: RN please fax discharge instructions to [facility] station, . for any questions/concerns. cpap at night Patient Instructions: Antibiotic Form, How to Stop Smoking (DC) Patient Language: Arabic Stand Alone Forms: General Discharge Information Follow-up/Referrals: UNKNOWN,DOCTOR [Primary Care Provider] - ([facility] ) Discharge Medications: New polyethylene glycol 3350 [Miralax] 17 gram Powder In Packet 17 g PO QAM Qty: 30 0RF nicotine [Nicoderm CQ] 21 mg/24 hr Patch 24 Hour 1 patch transdermal DAILY Qty: 7 0RF albuterol sulfate [Ventolin HFA] 90 mcg/actuation HFA aerosol inhaler 1 inh inhalation QID Qty: 6.7 0RF methylprednisolone [Medrol (Ignacio)] 4 mg tablets,dose pack See Rx Instructions .ROUTE .COMPLEX Qty: 21 0RF Rx Instructions: for 6 days Continued albuterol sulfate 90 mcg/actuation HFA aerosol inhaler 1 puff INHALATION Q4H PRN (Reason: shortness of breath or wheezing) sennosides-docusate sodium [Senna-Time S] 8.6-50 mg tablet 2 tab-cap PO HS fluticasone propion-salmeterol 250-50 mcg/dose blister with device 1 inh INHALATION Q12H lithium carbonate 300 mg capsule 300 mg PO BID metformin 1,000 mg tablet 1,000 mg PO BID gabapentin 300 mg capsule 300 mg PO Q12H losartan-hydrochlorothiazide 50-12.5 mg tablet 1 tablet PO DAILY diclofenac sodium 1 % gel See Rx Instructions TOPICAL .COMPLEX Rx Instructions: apply to bilateral knees bid topically; oxybutynin chloride 15 mg tablet extended release 24hr 15 mg PO DAILY venlafaxine 150 mg capsule,extended release 24hr 300 mg PO DAILY aripiprazole 10 mg tablet 5 mg PO DAILY Januvia 50 mg tablet 50 mg PO DAILY aspirin 81 mg capsule 81 mg PO DAILY folic acid 1 mg tablet 1 mg PO DAILY amlodipine 5 mg tablet 5 mg PO DAILY simvastatin 40 mg tablet 40 mg PO QPM benztropine 1 mg tablet 1 mg PO HS desipramine 150 mg tablet 150 mg PO HS omega 8-[id number]-gwa-fish oil [Fish Oil] 1,000 (120-180) mg capsule 1 cap PO HS Invega Trinza 819 mg/2.63 mL syringe 819 mg IM .every 3 months Patient Comments: Due May 16 Date of admission: 05/09/24 17:13 Primary Care Provider: UNKNOWN,DOCTOR Admitting Provider: Jhon Martínez Attending physician on admission: Cristiana Nickerson Condition: Stable
[2024-05-14] MEDS: SIMVASTATIN 20 MG TABLET 40 MG PO (17:10)
== END 2024-05-14 17:45 | disposition home or self-care (01) | DRG 189 ==
LOC: ANHED 15:08 → ANH3MED 17:19
PROVIDERS: Internal Medicine; Nurse Practitioner Adult Health; Physician Assistant; Admitting Provider General Practice; Emergency Provider Student in an Organized Health Care Education/Training Program; Visit Provider Family Medicine
DX: J96.21 Acute and chronic respiratory failure with hypoxia (principal); J44.1 Chronic obstructive pulmonary disease with (acute) exacerbation; N17.9 Acute kidney failure, unspecified; J96.22 Acute and chronic respiratory failure with hypercapnia; G47.33 Obstructive sleep apnea (adult) (pediatric); E11.9 Type 2 diabetes mellitus without complications; E87.5 Hyperkalemia; I10 Essential (primary) hypertension; E78.5 Hyperlipidemia, unspecified; F17.210 Nicotine dependence, cigarettes, uncomplicated; Z78.9 Other specified health status; F43.10 Post-traumatic stress disorder, unspecified; F20.9 Schizophrenia, unspecified; F41.8 Other specified anxiety disorders; Z90.49 Acquired absence of other specified parts of digestive tract
CPT/HCPCS: 36415; 36600; 71045; 74018; 80048; 80053; 80178; 81003; 82375; 82803; 82805; 82948; 83036; 83050; 83735; 83880; 84443; 84484; 85018; 85025; 85027; 87637; 93005; 93306; 93970; 94618; 94640; 94667; 94668; 94762; 96365; 96367; 96368; 96375; 97165; 99285; A9270; J0456; J0696; J1650; J1815; J2919; J3475; J7030; J7512